=== PATIENT | female | born 1935 | race Caucasian/White ===

== ENCOUNTER 2016-12-26 13:50 | Emergency (ER) | payer OTHER, MEDICARE ==
[2016-12-26 14:02] VITALS: BP 113/62; PULSE 86; TEMP 98.6; BMI 23.8
[2016-12-26] MEDS ORDERED: DIPHTH,PERTUSS(ACELL),TET 0.5 ML DISP.SYRIN IM ONE (14:04)
--- NOTE | 2016-12-26 14:45 | PDOC ---
History of Present Illness - General Chief Complaint: Laceration Stated Complaint: LACERATION RT HAND Time Seen by Provider: 12/26/16 13:55 History Source: Patient Exam Limitations: No Limitations - History of Present Illness Initial Comments: 12/26/16 14:08 Patient is a 81F who presents with a R hand laceration. The patient states she was cutting pasta dough and misjudged the depth of the dough. She takes a baby aspirin. She denies numbness, tingling, parasthesias, weakness in her R hand. She is L hand dominant. Last tetanus is unknown. Past History - Past Medical History Allergies/Adverse Reactions: Allergies Allergy/AdvReac Type Severity Reaction Status Date / Time No Known Allergies Allergy Verified 12/26/16 13:55 Home Medications: Ambulatory Orders Aspirin [Aspirin EC] 81 mg PO DAILY 12/26/16 Ranitidine HCl 300 mg PO DAILY 12/26/16 GI Disorders: Yes (DIVERTICULITIS) Other medical history: GLAUCOMA, EXERTIONAL DYSPNEA - Psycho/Social/Smoking Cessation Hx Anxiety: No Suicidal Ideation: No Smoking History: Never smoked Information on smoking cessation initiated: No Hx Alcohol Use: No Drug/Substance Use Hx: No Substance Use Type: None Review of Systems - Review of Systems Integumentary: Yes: Other (1 cm R hand, palmar surface laceration) *Physical Exam - Vital Signs Last Vital Signs Temp Pulse Resp BP Pulse Ox 98.6 F 86 18 113/62 98 12/26/16 13:50 12/26/16 13:50 12/26/16 13:50 12/26/16 13:50 12/26/16 13:50 - Physical Exam General Appearance: Yes: Nourished, Appropriately Dressed Extremity: positive: Normal Range of Motion (in R hand), Other (0.5 cm and 0.5 cm angled laceration on palmar surface). negative: Delayed Capillary Refill Integumentary: positive: Dry, Warm. negative: Pale, Cold, Rash Neurologic: positive: Respond to painful stimul. negative: Numbness Procedures - Laceration/Wound Repair Right Hand Wound Length: to 2.5 cm Wound Explored: clean Wound's Depth, Shape: irregular Irrigated w/ Saline: Yes Betadine Prep: No Anesthesia: 1% Lidocaine w/ Epi Amount of Anesthetic (ccs): 3 Wound Debrided: minimal Wound Repaired With: Sutures Suture Size/Type: 4:0 Number of Sutures: 3 Layer Closure: No Sterile Dressing Applied: Yes Splint Applied: No Medical Decision Making - Medical Decision Making 12/26/16 14:48 Patient is an 81F who presented to the ED with a R hand palmar laceration. She was given a tetanus booster and had 3 stitches placed in her laceration. I placed antibiotic ointment and a bandage. The patient is comfortable with d/c. *DC/Admit/Observation/Transfer Diagnosis at time of Disposition: Laceration - Discharge Dispostion Disposition: HOME Condition at time of disposition: Good Admit: No - Attestations Physician Attestion: 12/26/16 14:50 I, Dr. Matteo Harman, attest that this document has been prepared under my direction and personally reviewed by me in its entirety. I further attest, that it accurately reflects all work, treatment, procedures and medical decision -making performed by me.
--- NOTE | 2016-12-26 14:54 | PDOC ---
Attending Attestation - Resident Resident Name: ÁngelingaMatteo - ED Attending Attestation I have performed the following: I have examined & evaluated the patient, The case was reviewed & discussed with the resident, I agree w/resident's findings & plan, Exceptions are as noted - HPI HPI: 12/26/16 14:52 Agree with the resident's HPI as documented in the electronic medical record. - Physicial Exam PE: 12/26/16 14:53 Agree with the resident's physical examination as documented in the electronic medical record. - Medical Decision Making 12/26/16 14:53 81-year-old female with a 1 cm laceration to the palm of her nondominant hand with a knife. The wound was sutured under my direct supervision (see procedure note). Tetanus toxoid was given. Wound care instructions were provided to the patient and suture removal in 7-10 days.
== END 2016-12-26 14:58 | disposition home or self-care (01) ==
LOC: FER 13:50
PROC: 3E0234Z Introduction of Serum, Toxoid and Vaccine into Muscle, Percutaneous Approach (ICD-10-PCS; principal; 2016-12-26)
PROC: 0HQFXZZ Repair Right Hand Skin, External Approach (ICD-10-PCS; 2016-12-26)
DX: S61.411A Laceration without foreign body of right hand, initial encounter (principal); W26.0XXA Contact with knife, initial encounter; Y93.G1 Activity, food preparation and clean up; Y92.9 Unspecified place or not applicable; H40.9 Unspecified glaucoma
CPT/HCPCS: 12001-25; 90471; 90715; 99283-25

== ENCOUNTER 2017-04-11 09:49 | Inpatient (IN) | payer OTHER, MEDICARE ==
[2017-04-11 09:58] VITALS: BMI 21.9
--- NOTE | 2017-04-11 10:20 | PDOC ---
Attending Attestation - HPI HPI: 04/11/17 11:22 The patient is an 81 year old female, with a significant past medical history of COPD, who presents to the emergency department sent by Dr. Carens for evaluation of acute kidney injury and weight loss with a reported creatinine of 2 (elevated from baseline) and a calcium of 11.3. Allergies: NKDA PCP: Dr. Carnes - Physicial Exam PE: 04/11/17 11:24 Constitutional: Awake, alert, oriented. No acute distress. Head: Normocephalic. Atraumatic Eyes: PERRL. EOMI. Conjunctivae are not pale. ENT: (+) dry mucosa, cracked lips, soft palette mass (since ). Posterior pharynx without exudates or erythema. Uvula midline. Neck: Supple. Full ROM. No lymphadenopathy. Cardiovascular: Regular rate. Regular rhythm. S1, S2 regular. Distal pulses are 2+ and symmetric. Pulmonary/Chest: No evidence of respiratory distress. Clear to auscultation bilaterally No wheezing, rales or rhonchi. Abdominal: Soft and non-distended. There is no tenderness. No rebound, guarding or rigidity. No organomegaly. No palpable masses. Good bowel sounds. Back: No CVA tenderness. Musculoskeletal: No edema. No cyanosis. No clubbing. Full range of motion in all extremities. Nocalf tenderness. Radial/pedal pulses are intact and 2+ bilaterally Skin: (+) cachectic. Skin is warm and dry. No petechiae. No purpura. Neurological: Alert and oriented to person, place, and time. Cranial nerves II -XII are grossly intact. Normal speech. Strength is grossly symmetric. No sensory deficits. Psychiatric: Good eye contact. Normal interaction, affect and behavior. - Medical Decision Making 04/11/17 11:25 Documentation prepared by Osiris Sagastume, acting as medical technologist chemistry for Maribell Solis MD <Osiris Sagastume - Last Filed: 04/11/17 11:38> - Resident Resident Name: Vick Sanchez - ED Attending Attestation I have performed the following: I have examined & evaluated the patient, The case was reviewed & discussed with the resident, I agree w/resident's findings & plan, Exceptions are as noted - Medical Decision Making 04/11/17 10:19 I, Dr. Maribell Solis, DO, attest that this document has been prepared under my direction and personally reviewed by me in its entirety. I further attest, that it accurately reflects all work, treatment, procedures and medical decision -making performed by me. 04/11/17 11:33 a/p: 81yo female sent from Dr. Carnes for eval of hypercalemia and ANGEL -repeat labs -ekg -dehydrated on exam -will send parathyroid, spep, upep -wt loss -poss parathyroidism, vs MM vs dehydration and elevated labs -will need admission 04/11/17 12:[address] Kinsey who accepts pt to service -hgb 9 -cr 2 will need admission for further workup <Maribell Solis - Last Filed: 04/11/17 12:28> Discharge Disposition - Discharge Dispostion Admit: Yes <Maribell Solis - Last Filed: 04/11/17 12:28> - Diagnosis Hypercalcemia, Acute kidney injury - Discharge Dispostion Condition at time of disposition: Fair - Referrals Referrals: Vicente Carnes MD [Primary Care Provider] - - Patient Instructions - Post Discharge Activity Heart Score/ECG Review - ECG Intrepretation Comment:: 04/11/17 11:34 sinus at 78, nl axis, nl interval, no acute st/t wave findings, t wave inversions III nonspecific <Maribell Solis - Last Filed: 04/11/17 12:28>
[2017-04-11] MEDS ORDERED: SODIUM CHLORIDE 1,000 ML IV STA (10:54)
--- NOTE | 2017-04-11 11:14 | PDOC ---
History of Present Illness - General Chief Complaint: Revisit, Lab Variance Stated Complaint: LAB VARIANCE (PCP SENT)HIGH CA Time Seen by Provider: 04/11/17 10:11 History Source: Patient Exam Limitations: No Limitations - History of Present Illness Initial Comments: Patient is an 81 yo F with PMHx of GERD, was sent by her PCP because of abnormal labs, fatigue, 20 pound weight loss, confusion, decreased appetite and dry mouth that began 4-5 months ago. Her recent labs revealed 11.3 Calcium and creatinine of 2. Patient reports her dry mouth started around the same time and has been getting worse. She isn't able to swallow solids because of how dry her mouth is. She also has stated she has been more forgetful and confused lately. She denies abdominal pain, chest pain, dysuria, SOB, dizziness, bone pain, diarrhea, nausea and vomiting. 04/11/17 11:21 04/11/17 11:41 Timing/Duration: getting worse Past History - Travel Traveled outside of the country in the last 30 days: No Close contact w/someone who was outside of country & ill: No - Past Medical History Allergies/Adverse Reactions: Allergies Allergy/AdvReac Type Severity Reaction Status Date / Time No Known Allergies Allergy Verified 04/11/17 09:58 Home Medications: Ambulatory Orders Ranitidine HCl 300 mg PO DAILY 12/26/16 Cholecalciferol (Vitamin D3) [Vitamin D3] 2,000 unit PO DAILY 04/11/17 L.acidoph,Paracasei, B.lactis [Probiotic] 1 each PO HS 04/11/17 Mirtazapine [Remeron -] 15 mg PO HS 04/11/17 Multivit-Min/FA/Lycopen/Lutein [Centrum Silver Tablet] 1 each PO DAILY 04/11/17 Polyethylene Glycol 3350 [Miralax (For Daily Use) -] 17 gm PO DAILY 04/11/17 Tiotropium [place] [Spiriva] 1 inh IH DAILY 04/11/17 CHF: No Dementia: No GI Disorders: Yes (DIVERTICULITIS) - Suicide/Smoking/Psychosocial Hx Smoking History: Never smoked Information on smoking cessation initiated: No Hx Alcohol Use: No Drug/Substance Use Hx: No Substance Use Type: None Review of Systems - Review of Systems Able to Perform ROS?: Yes Constitutional: Yes: Loss of Appetite, Unintentional Wgt. Loss, Unexplained wgt Loss, Other (Fatigue) HEENTM: Yes: Difficulty Swallowing Respiratory: No: Cough, Shortness of Breath, SOB with Exertion Cardiac (ROS): No: Lightheadedness, Palpitations, Syncope ABD/GI: No: Abdominal Distended, Diarrhea : No: Burning, Dysuria Integumentary: Yes: Bruising, Pruritus (itching b/l LE feet) Neurological: No: Numbness, Tingling, Tremors, Unsteady Gait Endocrine: Yes: Unexplained Weight Loss, Change in Weight *Physical Exam - Vital Signs Last Vital Signs Temp Pulse Resp BP Pulse Ox 97.8 F 87 18 126/72 98 04/11/17 09:56 04/11/17 09:56 04/11/17 09:56 04/11/17 09:56 04/11/17 09:56 - Physical Exam Comments: NAD, comfortable A/O x 3, (forgot who president was) EOMI Dry mucous membranes, soft palate mass No thyromegaly, supple, no LAD CTA B/L RRR. No MGR Ext: B/L LE feet excoriations General Appearance: Yes: Appropriately Dressed. No: Apparent Distress HEENT: positive: EOMI, Normal Voice, Other (Dry mucous membranes). negative: Scleral Icterus (R), Scleral Icterus (L) Neck: positive: Supple Respiratory/Chest: positive: Lungs Clear, Normal Breath Sounds. 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 Hypercalcemia 2. ANGEL -Dehydration vs MM vs Parathyroidism -Labs ordered: CBC, CMP, PTH, SPEP -EKG ordered -CXR -IV Fluids 1L bolus 04/11/17 11:51 *DC/Admit/Observation/Transfer Diagnosis at time of Disposition: Hypercalcemia, Acute kidney injury - Discharge Dispostion Condition at time of disposition: Stable Admit: Yes - Referrals
[2017-04-11 11:19] LABS: BASOPHIL 0.8 % (0-2.0); EOSINOPHIL 1.1 % (0-4.5); MCH 29.8 pg (25.7-33.7); MCHC 34.5 g/dl (32.0-36.0); MEAN CELL VOLUME 86.3 fl (80-96); MEAN PLT VOLUME 7.5 fl (7.5-11.1); PLATELET COUNT 143 K/MM3 (134-434); RDW 17.7 % (11.6-15.6); WHITE BLOOD COUNT 5.4 K/mm3 (4.0-10.0)
[2017-04-11 11:44] LABS: URINE APPEARANCE CLEAR; URINE BILIRUBIN NEGATIVE (NEGATIVE); URINE BLOOD NEGATIVE (NEGATIVE); URINE COLOR LTYELLOW; URINE GLUCOSE (UA) NEGATIVE (NEGATIVE); URINE KETONE NEGATIVE (NEGATIVE); URINE NITRITE NEGATIVE (NEGATIVE); URINE PROTEIN NEGATIVE (NEGATIVE); URINE UROBILINOGEN NEGATIVE mg/dL (0.2-1.0)
[2017-04-11 11:49] LABS: ALBUMIN 3.8 g/dl (3.4-5.0); ANION GAP 9 (8-16); CALCIUM 11.9 mg/dL (8.5-10.1); CO2 26 mmol/L (21-32); CREATININE 2.2 mg/dL (0.55-1.02); GLUCOSE,RANDOM 91 mg/dL (74-106); SGOT/AST 14 U/L (15-37); SGPT/ALT 20 U/L (12-78)
[2017-04-11 11:52] LABS: ALK PHOS 73 U/L (45-117); BILIRUBIN,TOTAL 0.8 mg/dL (0.2-1.0); TOT PROT 6.1 g/dl (6.4-8.2)
[2017-04-11] MEDS ORDERED: SODIUM CHLORIDE 0.9% 1000 ML INFUS.BAG IV ONE (12:53)
--- NOTE | 2017-04-11 13:21 | HP ---
Admitting History and Physical - Primary Care Physician PCP: Vicente Carnes - Admission History of Present Illness: The patient is an 81 year old female, with a significant past medical history of COPD, who presents to the emergency department sent by Dr. Carnes for evaluation of acute kidney injury and weight loss with a reported creatinine of 2 (elevated from baseline) and a calcium of 11.3. per patient she has been losing weight for past few weeks bc she has no appetite and has noticed like her balance is off , she feels like she will fall. she denies nausea,constipation, but is complaining of dry mouth in ER noted to have hgb 9, cr 2.2 and ca 11.9 getting iv hydration History Source: Patient, Family Member - Past Medical History Pulmonary: Yes: COPD - Smoking History Smoking history: Never smoked - Alcohol/Substance Use Hx Alcohol Use: No Home Medications - Allergies Allergies/Adverse Reactions: Allergies Allergy/AdvReac Type Severity Reaction Status Date / Time No Known Allergies Allergy Verified 04/11/17 09:58 - Home Medications Home Medications: Ambulatory Orders Ranitidine HCl 300 mg PO DAILY 12/26/16 Cholecalciferol (Vitamin D3) [Vitamin D3] 2,000 unit PO DAILY 04/11/17 L.acidoph,Paracasei, B.lactis [Probiotic] 1 each PO HS 04/11/17 Mirtazapine [Remeron -] 15 mg PO HS 04/11/17 Multivit-Min/FA/Lycopen/Lutein [Centrum Silver Tablet] 1 each PO DAILY 04/11/17 Polyethylene Glycol 3350 [Miralax (For Daily Use) -] 17 gm PO DAILY 04/11/17 Tiotropium [place] [Spiriva] 1 inh IH DAILY 04/11/17 Review of Systems - Review of Systems Constitutional: reports: Loss of Appetite, Unintentional Wgt. Loss Integumentary: reports: Pruritis (on the legs) Physical Examination Vital Signs: Vital Signs Temperature 97.8 F 04/11/17 09:56 Pulse Rate 87 04/11/17 09:56 Respiratory Rate 18 04/11/17 09:56 Blood Pressure 126/72 04/11/17 09:56 O2 Sat by Pulse Oximetry (%) 98 04/11/17 09:56 Constitutional: Yes: Calm, Thin Cardiovascular: Yes: Regular Rate and Rhythm, S1, S2 Respiratory: Yes: CTA Bilaterally Gastrointestinal: Yes: Normal Bowel Sounds, Soft Edema: No Neurological: Yes: Alert, Oriented Psychiatric: Yes: Alert, Oriented Imaging - Results Chest X-ray: Report Reviewed Problem List - Problems (1) Acute kidney injury Assessment/Plan: renal eval renal sono ivf Code(s): N17.9 - ACUTE KIDNEY FAILURE, UNSPECIFIED (2) Hypercalcemia Assessment/Plan: r/o MM vs parathyroid dx spep upep pth endo,heme Code(s): E83.52 - HYPERCALCEMIA (3) COPD (chronic obstructive pulmonary disease) Assessment/Plan: spiriva Code(s): J44.9 - CHRONIC OBSTRUCTIVE PULMONARY DISEASE, UNSPECIFIED (4) Decrease in appetite Assessment/Plan: remeron Code(s): R63.0 - ANOREXIA
[2017-04-11] MEDS ORDERED: SODIUM CHLORIDE 1,000 ML IV SCH (13:45)
--- NOTE | 2017-04-11 14:08 | CONSULT ---
Consult Consult Specialty:: Nephrology Referred by:: Dr. 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 Pulmonary: Yes: COPD - Past Surgical History Past Surgical History: Yes: Appendectomy - Alcohol/Substance Use Hx Alcohol Use: No History of Substance Use: reports: None - Smoking History Smoking history: Never smoked - Social History Usual Living Arrangement: Alone () Home Medications - Allergies Allergies/Adverse Reactions: Allergies Allergy/AdvReac Type Severity Reaction Status Date / Time No Known Allergies Allergy Verified 04/11/17 09:58 - Home Medications Home Medications: Ambulatory Orders Ranitidine HCl 300 mg PO DAILY 12/26/16 Cholecalciferol (Vitamin D3) [Vitamin D3] 2,000 unit PO DAILY 04/11/17 L.acidoph,Paracasei, B.lactis [Probiotic] 1 each PO HS 04/11/17 Mirtazapine [Remeron -] 15 mg PO HS 04/11/17 Multivit-Min/FA/Lycopen/Lutein [Centrum Silver Tablet] 1 each PO DAILY 04/11/17 Polyethylene Glycol 3350 [Miralax (For Daily Use) -] 17 gm PO DAILY 04/11/17 Tiotropium [place] [Spiriva] 1 inh IH DAILY 04/11/17 Review of Systems - Review of Systems Constitutional: reports: Loss of Appetite, Malaise, Unintentional Wgt. Loss Eyes: reports: No Symptoms HENT: reports: No Symptoms Neck: reports: No Symptoms Cardiovascular: reports: Shortness of Breath Respiratory: reports: SOB on Exertion Gastrointestinal: reports: No Symptoms Genitourinary: reports: Frequency, Lesions, Other (inceased urine volume) Neurological: reports: No Symptoms Physical Exam Vital Signs: Vital Signs Temperature 97.8 F 04/11/17 09:56 Pulse Rate 87 04/11/17 09:56 Respiratory Rate 18 04/11/17 09:56 Blood Pressure 126/72 04/11/17 09:56 O2 Sat by Pulse Oximetry (%) 98 04/11/17 09:56 Constitutional: Yes: No Distress HENT: Yes: Atraumatic Neck: Yes: Supple Cardiovascular: Yes: S1, S2 Respiratory: Yes: Regular, CTA Bilaterally Gastrointestinal: Yes: Normal Bowel Sounds, Soft Renal/: No: Bladder Distention, CVA Tenderness - Left, CVA Tenderness - Right , Hematuria Musculoskeletal: No: Back Pain, Joint Stiffness Neurological: Yes: Alert, Oriented Imaging - Results Chest X-ray: Pending Problem List - Problems (1) Hypercalcemia Code(s): E83.52 - HYPERCALCEMIA Assessment/Plan 81 y/o female with h/o COPD, very remote h/o smoking cigarettes, admitted with unexplained weight loss. The Renal function in view of Hypercalcemia and Acute azotemia. Hypercalcemia: White it is partially due to the patient taking Vitamin D and Calcium supplements, that alone may not be sufficient to explain the degree of Hypercalcemia. This finding in combination with the unexplained weight loss should alert one to look for Malignant Hypercalcemia in an elderly female. Dehydration makes the Hypercalcemia worse. The Acute Kidney Injury may be significantly volume dependent. Hypercalcemia causes a form of Nephrogenic Diabetes insipidus, polyuria and vole depletion. Need also to look for other reasons too. Anemia is significant, and needs work up. Will continue hydration with IV Normal saline. Basic w/u as ordered. Avoid Calcium and Vitamin D for now. Will monitor the renal / electrolytes with you. Thank you. Marge Berumen MD
--- NOTE | 2017-04-11 16:13 | CONSULT ---
Consult Consult Specialty:: Hematology/Oncology Reason for Consultation:: Hypercalcemia - History of Present Illness History of Present Illness: Sent in by due to hyperCa and ANGEL. Patient seen and examined in the ER. 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 She + fatigue, no LAD, bone pains , night sweats, melena. She says her last colonoscopy and mammo are negative , does not recall when. 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 Pulmonary: Yes: COPD - Past Surgical History Past Surgical History: Yes: Appendectomy - Alcohol/Substance Use Hx Alcohol Use: No History of Substance Use: reports: None - Smoking History Smoking history: Never smoked - Social History Usual Living Arrangement: Alone () Home Medications - Allergies Allergies/Adverse Reactions: Allergies Allergy/AdvReac Type Severity Reaction Status Date / Time No Known Allergies Allergy Verified 04/11/17 09:58 - Home Medications Home Medications: Ambulatory Orders Ranitidine HCl 300 mg PO DAILY 12/26/16 Cholecalciferol (Vitamin D3) [Vitamin D3] 2,000 unit PO DAILY 04/11/17 L.acidoph,Paracasei, B.lactis [Probiotic] 1 each PO HS 04/11/17 Mirtazapine [Remeron -] 15 mg PO HS 04/11/17 Multivit-Min/FA/Lycopen/Lutein [Centrum Silver Tablet] 1 each PO DAILY 04/11/17 Polyethylene Glycol 3350 [Miralax (For Daily Use) -] 17 gm PO DAILY 04/11/17 Tiotropium [place] [Spiriva] 1 inh IH DAILY 04/11/17 Review of Systems - Review of Systems Constitutional: reports: Loss of Appetite, Unintentional Wgt. Loss, Weakness. denies: Night Sweats Eyes: denies: Blind Spots, Photophobia Neck: denies: Decreased ROM, Lumps, Pain on Movement Cardiovascular: denies: Chest Pain, Edema, Palpitations Respiratory: denies: Cough, Exercise Intolerance Gastrointestinal: denies: Abdominal Pain, Bloating, Constipation, Diarrhea, Melena, Rectal Bleeding Genitourinary: denies: Burning Neurological: denies: Change in LOC, Change in Speech, Confusion Hematology/Lymphatic: denies: Easily Bruised, Excessive Bleeding, Swollen Glands Physical Exam Vital Signs: Vital Signs Temperature 97.6 F 04/11/17 14:38 Pulse Rate 79 04/11/17 14:38 Respiratory Rate 16 04/11/17 14:38 Blood Pressure 132/58 04/11/17 14:38 O2 Sat by Pulse Oximetry (%) 98 04/11/17 14:38 Constitutional: Yes: No Distress, Calm, Thin Eyes: Yes: Conjunctiva Clear HENT: Yes: Atraumatic, Normocephalic Neck: Yes: Supple, Trachea Midline. No: Lymphadenopathy Cardiovascular: Yes: Regular Rate and Rhythm Respiratory: Yes: Regular, CTA Bilaterally. No: Accessory Muscle Use Gastrointestinal: Yes: Normal Bowel Sounds, Soft, Abdomen, Obese Musculoskeletal: No: Back Pain, Joint Stiffness Edema: No Neurological: Yes: Alert, Oriented Psychiatric: Yes: Alert, Oriented Imaging - Results Chest X-ray: Report Reviewed Problem List - Problems (1) Hypercalcemia Code(s): E83.52 - HYPERCALCEMIA (2) Acute kidney injury Code(s): N17.9 - ACUTE KIDNEY FAILURE, UNSPECIFIED (3) COPD (chronic obstructive pulmonary disease) Code(s): J44.9 - CHRONIC OBSTRUCTIVE PULMONARY DISEASE, UNSPECIFIED Assessment/Plan Hypercalcemia Normocytic Normochromic Anemia ANGEL COPD remote hx of smoking. -for anemia w/u -r/o MM -for HyperCa, as of now, likely would improve with IVF, Will hold off on Bisphosphonates -bone scan -further w/u pending above
[2017-04-11 17:22] LABS: URINE LEUK ESTERASE Negative (NEGATIVE)
--- NOTE | 2017-04-11 20:17 | EKG ---
Test Reason : Blood Pressure : / mmHG Vent. Rate : 078 BPM Atrial Rate : 078 BPM P-R Int : 138 ms QRS Dur : 080 ms QT Int : 390 ms P-R-T Axes : 071 041 044 degrees QTc Int : 444 ms NORMAL SINUS RHYTHM POSSIBLE LEFT ATRIAL ENLARGEMENT BORDERLINE ECG NO PREVIOUS ECGS AVAILABLE REPEAT EKG IF CLINICALLY INDICATED Confirmed by RHYS IZQUIERDO MD ([id number]) on 04/11/2017 8:17:16 PM Referred By: Confirmed By:RHYS IZQUIERDO MD
[2017-04-11] MEDS: MIRTAZAPINE 15 MG TABLET (FP) PO SCH (22:58)
[2017-04-12 07:35] LABS: FREE T4 0.99 ng/dl (0.76-1.46)
[2017-04-12 07:49] LABS: THYROID STIMULATING HORMONE 2.55 uIU/ml (0.358-3.74)
[2017-04-12 07:50] LABS: ALBUMIN 2.9 g/dl (3.4-5.0); ALK PHOS 53 U/L (45-117); ANION GAP 11 (8-16); BILIRUBIN,TOTAL 0.8 mg/dL (0.2-1.0); CALCIUM 9.1 mg/dL (8.5-10.1); CO2 23 mmol/L (21-32); CREATININE 1.4 mg/dL (0.55-1.02); GLUCOSE,RANDOM 87 mg/dL (74-106); PHOSPHOROUS 2.8 mg/dL (2.5-4.9); SGOT/AST 10 U/L (15-37); SGPT/ALT 14 U/L (12-78); TOT PROT 4.6 g/dl (6.4-8.2); URIC ACID 6.7 mg/dL (2.6-7.2)
--- NOTE | 2017-04-12 08:51 | PN ---
Progress Note, Physician - Current Medication List Current Medications: Active Medications Sodium Chloride (Normal Saline -) 1,000 mls @ 125 mls/hr IV ASDIR ADRIÁN Last Admin: 04/11/17 14:41 Dose: 125 mls/hr Mirtazapine (Remeron -) 15 mg PO HS ADRIÁN Last Admin: 04/11/17 22:58 Dose: 15 mg Tiotropium [place] (Spiriva -) 1 puff IH DAILY [facility] - Objective Vital Signs: Vital Signs Temperature 97.8 F 04/12/17 07:37 Pulse Rate 74 04/12/17 07:37 Respiratory Rate 20 04/12/17 07:37 Blood Pressure 135/62 04/12/17 07:37 O2 Sat by Pulse Oximetry (%) 98 04/11/17 22:19 Labs: CBC, BMP 04/12/17 06:40 Assessment/Plan - Problems (1) Acute kidney injury Assessment/Plan: renal eval noted renal sono ivf Code(s): N17.9 - ACUTE KIDNEY FAILURE, UNSPECIFIED (2) Hypercalcemia Assessment/Plan: improving on ivf Laboratory Tests 04/11/17 04/12/17 11:00 06:40 BUN 35 H 24 H D Creatinine 2.2 H 1.4 H D r/o MM vs parathyroid dx spep upep pth endo,heme Code(s): E83.52 - HYPERCALCEMIA (3) COPD (chronic obstructive pulmonary disease) Assessment/Plan: spiriva Code(s): J44.9 - CHRONIC OBSTRUCTIVE PULMONARY DISEASE, UNSPECIFIED (4) Decrease in appetite Assessment/Plan: remeron Code(s): R63.0 - ANOREXIA
--- NOTE | 2017-04-12 11:55 | PN ---
Progress Note, Physician Chief Complaint: The patient sitting by her bed. Reports feeling better. No chest pain, No shortness of breath. Good urine output maintained. IV fluids well tolerated. History of Present Illness: This is an 81 y/o female with h/o COPD, remote h/o smoking cigarettes, admitted with unexplained weight loss. TThe patient was noted to have Hypercalcemia and Acute azotemia. - Current Medication List Current Medications: Active Medications Sodium Chloride (Normal Saline -) 1,000 mls @ 125 mls/hr IV ASDIR [facility] Last Admin: 04/11/17 14:41 Dose: 125 mls/hr Mirtazapine (Remeron -) 15 mg PO HS [facility] Last Admin: 04/11/17 22:58 Dose: 15 mg Tiotropium [place] (Spiriva -) 1 puff IH DAILY [facility] - Objective Vital Signs: Vital Signs Temperature 97.8 F 04/12/17 07:37 Pulse Rate 74 04/12/17 07:37 Respiratory Rate 20 04/12/17 08:00 Blood Pressure 135/62 04/12/17 07:37 O2 Sat by Pulse Oximetry (%) 96 04/12/17 08:00 Constitutional: Yes: No Distress, Calm, Pallor Eyes: Yes: Conjunctiva Clear HENT: Yes: Atraumatic Neck: Yes: Trachea Midline Cardiovascular: Yes: S1, S2 Respiratory: Yes: Regular, Diminished Gastrointestinal: Yes: Normal Bowel Sounds, Soft Genitourinary: No: CVA Tenderness - Left, CVA Tenderness - Right Musculoskeletal: No: Back Pain, Muscle Pain Neurological: Yes: Alert, Oriented Labs: CBC, BMP 04/12/17 06:40 Problem List - Problems (1) Hypercalcemia Code(s): E83.52 - HYPERCALCEMIA (2) Acute kidney injury Code(s): N17.9 - ACUTE KIDNEY FAILURE, UNSPECIFIED Assessment/Plan 81 y/o female with h/o COPD, h/o smoking cigarettes in the remote past, admitted with unexplained weight loss. Hypercalcemia: has improved by vigorous Hydration. W/u still pending. The Acute Kidney Injury: The azotemia is improving . Anemia is significant, and needs work up. Renal sonogram with multiple cysts, not unusual in patients of this age. renal asymmetry-There is no clinical evidence of Renal artery stenosis. 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 PLAN: Will reduce the IV rate to 50 ml/hr. Awaiting results of the w/u in progress. Thank you. Marge Berumen MD
[2017-04-12] MEDS: D5-1/2NS+40 MEQ KCL - 1,000 ML IV SCH (12:43)
--- NOTE | 2017-04-12 13:22 | PN ---
Progress Note (short form) - Note Progress Note: Patient seen and examined this am, In chair. Feels better. Labs/notes reviewed. O/E: General: In chair in NAD Neck: Yes: Supple, Trachea Midline. No: Lymphadenopathy Cardiovascular: Yes: Regular Rate and Rhythm Respiratory: Yes: Regular, CTA Bilaterally. No: Accessory Muscle Use Gastrointestinal: Yes: Normal Bowel Sounds, Soft, Abdomen, Obese Musculoskeletal: No: Back Pain, Joint Stiffness Edema: No Neurological: Yes: Alert, Oriented Psychiatric: Yes: Alert, Oriented Last Vital Signs Temp Pulse Resp BP Pulse Ox 97.8 F 74 20 135/62 96 04/12/17 07:37 04/12/17 07:37 04/12/17 08:00 04/12/17 07:37 04/12/17 08:00 CBC, BMP 04/11/17 11:00 04/12/17 06:40 Current Medications Generic Name Dose Route Start Last Admin Trade Name Freq PRN Reason Stop Dose Admin Dextrose/Sodium Chloride 1,000 mls @ 50 mls/hr 04/12/17 12:15 04/12/17 12:43 D5-1/2ns+40 Meq Kcl - IV 50 mls/hr ASDIR ADRIÁN Administration Mirtazapine 15 mg 04/11/17 22:00 04/11/17 22:58 Remeron - PO 15 mg HS ADRIÁN Administration Tiotropium [place] 1 puff 04/12/17 10:00 Spiriva - IH DAILY ADRIÁN Hypercalcemia Normocytic Normochromic Anemia ANGEL COPD remote hx of smoking. -will f/u on w/u, most of it pending -cr/ca improved -if discharged,need to f/u in the office. Problem List - Problems (1) Hypercalcemia Code(s): E83.52 - HYPERCALCEMIA (2) Acute kidney injury Code(s): N17.9 - ACUTE KIDNEY FAILURE, UNSPECIFIED (3) COPD (chronic obstructive pulmonary disease) Code(s): J44.9 - CHRONIC OBSTRUCTIVE PULMONARY DISEASE, UNSPECIFIED
[2017-04-12] MEDS: TIOTROPIUM BROMIDE 18 MCG/INH (DEVICE W/ 5 CAPSULES) IH SCH (14:15)
[2017-04-12 15:04] LABS: BASOPHIL 0.6 % (0-2.0); EOSINOPHIL 3.2 % (0-4.5); MCH 29.6 pg (25.7-33.7); MEAN CELL VOLUME 87.1 fl (80-96); MEAN PLT VOLUME 7.2 fl (7.5-11.1); NEUTROPHILS 68.8 % (42.8-82.8); PLATELET COUNT 121 K/MM3 (134-434); RDW 16.9 % (11.6-15.6)
[2017-04-12] MEDS: MIRTAZAPINE 15 MG TABLET (FP) PO SCH (22:02)
--- NOTE | 2017-04-12 22:47 | CONSULT ---
Consult Consult Specialty:: endocrine Referred by:: dr.saba de león Reason for Consultation:: hypercalcemia - History of Present Illness Chief Complaint: weakness,memory loss History of Present Illness: 81 year old female, with a significant past medical history of COPD, who presents to the emergency department sent by Dr. Carnes for evaluation of acute kidney injury and weight loss with a reported creatinine of 2 (elevated from baseline) and a calcium of 11.3. per patient she has been losing weight for past few weeks bc she has no appetite and has noticed like her balance is off , she feels like she will fall. 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 Pulmonary: Yes: COPD ...: No - Past Surgical History Past Surgical History: Yes: Appendectomy - Alcohol/Substance Use Hx Alcohol Use: No History of Substance Use: reports: None - Smoking History Smoking history: Former smoker Have you smoked in the past 12 months: No If you are a former smoker, when did you quit?: 60 YRS AGO - Social History Usual Living Arrangement: Alone () Home Medications - Allergies Allergies/Adverse Reactions: Allergies Allergy/AdvReac Type Severity Reaction Status Date / Time No Known Allergies Allergy Verified 04/11/17 09:58 - Home Medications Home Medications: Ambulatory Orders Ranitidine HCl 300 mg PO DAILY 12/26/16 Cholecalciferol (Vitamin D3) [Vitamin D3] 2,000 unit PO DAILY 04/11/17 L.acidoph,Paracasei, B.lactis [Probiotic] 1 each PO HS 04/11/17 Mirtazapine [Remeron -] 15 mg PO HS 04/11/17 Multivit-Min/FA/Lycopen/Lutein [Centrum Silver Tablet] 1 each PO DAILY 04/11/17 Polyethylene Glycol 3350 [Miralax (For Daily Use) -] 17 gm PO DAILY 04/11/17 Tiotropium [place] [Spiriva] 1 inh IH DAILY 04/11/17 Review of Systems - Review of Systems Constitutional: reports: Loss of Appetite, Unintentional Wgt. Loss Eyes: reports: Blurred Vision HENT: reports: No Symptoms Neck: reports: Decreased ROM Cardiovascular: reports: No Symptoms Respiratory: reports: Exercise Intolerance, SOB on Exertion Gastrointestinal: reports: Bloating, Constipation, Nausea Genitourinary: reports: No Symptoms Breasts: reports: No Symptoms Reported Musculoskeletal: reports: Extremity Pain, Muscle Pain, Muscle Cramps, Muscle Weakness Neurological: reports: Confusion, Unsteady Gait, Weakness Endocrine: reports: Unexplained Weight Loss Physical Exam Vital Signs: Vital Signs Temperature 98.2 F 04/12/17 17:00 Pulse Rate 83 04/12/17 17:00 Respiratory Rate 18 04/12/17 17:00 Blood Pressure 150/70 04/12/17 17:00 O2 Sat by Pulse Oximetry (%) 96 04/12/17 08:00 Constitutional: Yes: Anxious Eyes: Yes: EOM Intact HENT: Yes: Normocephalic Neck: Yes: Trachea Midline Cardiovascular: Yes: Regular Rate and Rhythm Respiratory: Yes: CTA Bilaterally Gastrointestinal: Yes: Normal Bowel Sounds ...Rectal Exam: Yes: Deferred Renal/: Yes: WNL Breast(s): Yes: WNL Musculoskeletal: Yes: WNL Extremities: Yes: WNL Integumentary: Yes: WNL Neurological: Yes: Alert, Oriented Psychiatric: Yes: Alert Labs: CBC, BMP 04/12/17 14:00 04/12/17 06:40 Problem List - Problems (1) Acute kidney injury Code(s): N17.9 - ACUTE KIDNEY FAILURE, UNSPECIFIED (2) COPD (chronic obstructive pulmonary disease) Code(s): J44.9 - CHRONIC OBSTRUCTIVE PULMONARY DISEASE, UNSPECIFIED (3) Decrease in appetite Code(s): R63.0 - ANOREXIA (4) Hypercalcemia Code(s): E83.52 - HYPERCALCEMIA (5) Acute renal insufficiency Code(s): N28.9 - DISORDER OF KIDNEY AND URETER, UNSPECIFIED Assessment/Plan Current Active Problems Acute kidney injury (Acute) COPD (chronic obstructive pulmonary disease) (Acute) Decrease in appetite (Acute) Hypercalcemia (Acute) Abnormal Lab Results 04/12/17 04/12/17 04/12/17 06:40 06:40 06:40 RBC Hgb Hct RDW Plt Count MPV Monocytes % Retic Count 1.89 H Sodium 147 H Potassium 3.2 L Chloride 113 H BUN 24 H D Creatinine 1.4 H D AST 10 L D C-Reactive Protein 0.4 H Total Protein 4.6 L D Albumin 2.9 L D 04/12/17 14:00 RBC 2.84 L Hgb 8.4 L Hct 24.7 L RDW 16.9 H Plt Count 121 L MPV 7.2 L Monocytes % 16.3 H Retic Count Sodium Potassium Chloride BUN Creatinine AST C-Reactive Protein Total Protein Albumin Laboratory Results - last 24 hr 04/11/17 04/12/17 04/12/17 12:00 06:40 06:40 WBC RBC Hgb Hct MCV MCH MCHC RDW Plt Count MPV Neutrophils % Lymphocytes % Monocytes % Eosinophils % Basophils % ESR 10 Retic Count Sodium 147 H Potassium 3.2 L Chloride 113 H Carbon Dioxide 23 Anion Gap 11 BUN 24 H D Creatinine 1.4 H D Creat Clearance w eGFR 36.00 Random Glucose 87 Uric Acid 6.7 Calcium 9.1 D Phosphorus 2.8 Magnesium 2.0 Total Bilirubin 0.8 AST 10 L D ALT 14 D Alkaline Phosphatase 53 D LD Total C-Reactive Protein Total Protein 4.6 L D Albumin 2.9 L D Serum Folate 17 TSH 2.55 D Free T4 PTH Intact 22 04/12/17 04/12/17 04/12/17 06:40 06:40 06:40 WBC RBC Hgb Hct MCV MCH MCHC RDW Plt Count MPV Neutrophils % Lymphocytes % Monocytes % Eosinophils % Basophils % ESR Retic Count 1.89 H Sodium Potassium Chloride Carbon Dioxide Anion Gap BUN Creatinine Creat Clearance w eGFR Random Glucose Uric Acid Calcium Phosphorus Magnesium Total Bilirubin AST ALT Alkaline Phosphatase LD Total 161 C-Reactive Protein 0.4 H Total Protein Albumin Serum Folate TSH Free T4 0.99 D PTH Intact 04/12/17 14:00 WBC 4.0 RBC 2.84 L Hgb 8.4 L Hct 24.7 L MCV 87.1 MCH 29.6 MCHC 34.0 RDW 16.9 H Plt Count 121 L MPV 7.2 L Neutrophils % 68.8 Lymphocytes % 11.1 Monocytes % 16.3 H Eosinophils % 3.2 D Basophils % 0.6 ESR Retic Count Sodium Potassium Chloride Carbon Dioxide Anion Gap BUN Creatinine Creat Clearance w eGFR Random Glucose Uric Acid Calcium Phosphorus Magnesium Total Bilirubin AST ALT Alkaline Phosphatase LD Total C-Reactive Protein Total Protein Albumin Serum Folate TSH Free T4 PTH Intact plan:\ given recent correctio hypercalcemia and martha will need further eval ck michael gi evaluation pth rp
[2017-04-13 00:12] LABS: A/G RATIO 1.9 (0.7-1.7); ALBUMIN 3.9 g/dL (2.9-4.4); M-SPIKE Not Observed g/dL (Not Observed); TOTAL PROTEIN 5.9 g/dL (6.0-8.5)
[2017-04-13 07:03] LABS: ANION GAP 10 (8-16); CALCIUM 9.1 mg/dL (8.5-10.1); CO2 24 mmol/L (21-32); CREATININE 1.4 mg/dL (0.55-1.02); GLUCOSE,RANDOM 89 mg/dL (74-106); SGOT/AST 11 U/L (15-37); SGPT/ALT 14 U/L (12-78)
[2017-04-13 07:04] LABS: ALK PHOS 56 U/L (45-117); BILIRUBIN,TOTAL 0.5 mg/dL (0.2-1.0); TOT PROT 4.8 g/dl (6.4-8.2)
[2017-04-13 07:16] LABS: FERRITIN 208.588 ng/ml (6.9-282.5)
[2017-04-13 08:07] LABS: SERUM IRON 40 ug/dL (27-139); TOTAL IRON BINDING CAPACITY 191 ug/dL (250-450); UIBC 151 ug/dL (118-369)
--- NOTE | 2017-04-13 08:07 | PN ---
Progress Note, Physician History of Present Illness: weakness - Current Medication List Current Medications: Active Medications Dextrose/Sodium Chloride (D5-1/2ns+40 Meq Kcl -) 1,000 mls @ 50 mls/hr IV ASDIR [facility] Last Admin: 04/12/17 12:43 Dose: 50 mls/hr Mirtazapine (Remeron -) 15 mg PO HS [facility] Last Admin: 04/12/17 22:02 Dose: 15 mg Tiotropium [place] (Spiriva -) 1 puff IH DAILY [facility] Last Admin: 04/12/17 14:15 Dose: 1 puff - Objective Vital Signs: Vital Signs Temperature 99 F 04/13/17 05:00 Pulse Rate 76 04/13/17 05:00 Respiratory Rate 20 04/13/17 05:00 Blood Pressure 113/54 04/13/17 05:00 O2 Sat by Pulse Oximetry (%) 96 04/12/17 21:00 Cardiovascular: Yes: Regular Rate and Rhythm Respiratory: Yes: Regular, CTA Bilaterally Gastrointestinal: Yes: Normal Bowel Sounds, Soft Labs: CBC, BMP 04/12/17 14:00 04/13/17 06:15 Problem List - Problems (1) Hypercalcemia Assessment/Plan: IMPROVING W/U IN PROGRESS R/O MM--MALIGNANCY CT SCAN Code(s): E83.52 - HYPERCALCEMIA (2) Acute kidney injury Code(s): N17.9 - ACUTE KIDNEY FAILURE, UNSPECIFIED (3) COPD (chronic obstructive pulmonary disease) Code(s): J44.9 - CHRONIC OBSTRUCTIVE PULMONARY DISEASE, UNSPECIFIED (4) Acute renal insufficiency Assessment/Plan: IMPROVING-MONITOR Code(s): N28.9 - DISORDER OF KIDNEY AND URETER, UNSPECIFIED (5) Anemia Assessment/Plan: MONITOR COUNTS DROPPING MAY BE DUE TO HYDRATION GI CONSULT Code(s): D64.9 - ANEMIA, UNSPECIFIED (6) Renal cyst Assessment/Plan: US NOTED Code(s): N28.1 - CYST OF KIDNEY, ACQUIRED (7) Splenomegaly Assessment/Plan: US NOTED Code(s): R16.1 - SPLENOMEGALY, NOT ELSEWHERE CLASSIFIED (8) Tachycardia Assessment/Plan: SHORT RUNS MAYBE DUE TO ANEMIA EKG CARDIO ECHO Code(s): R00.0 - TACHYCARDIA, UNSPECIFIED Assessment/Plan -
[2017-04-13] MEDS ORDERED: PT OWN MED DRAWER 7, Y5N ONE ×2 (10:22→10:46)
[2017-04-13] MEDS: TIOTROPIUM BROMIDE 18 MCG/INH (DEVICE W/ 5 CAPSULES) IH SCH (10:25)
--- NOTE | 2017-04-13 10:39 | EKG ---
Test Reason : Blood Pressure : / mmHG Vent. Rate : 082 BPM Atrial Rate : 082 BPM P-R Int : 140 ms QRS Dur : 076 ms QT Int : 378 ms P-R-T Axes : 063 024 033 degrees QTc Int : 441 ms NORMAL SINUS RHYTHM NORMAL ECG WHEN COMPARED WITH ECG OF 11-APR-2017 11:15, NO SIGNIFICANT CHANGE WAS FOUND Confirmed by GERMAN FLORIAN MD ([id number]) on 04/13/2017 10:39:33 AM Referred By: CARRIE JONES DR Confirmed By:GERMAN FLORIAN MD
--- NOTE | 2017-04-13 12:07 | PN ---
Progress Note, Physician Chief Complaint: The patient sitting by her bed. Family visiting. Reports feeling better. No chest pain, No shortness of breath. Good urine output maintained. IV fluids well tolerated. History of Present Illness: This is an 81 y/o female with h/o COPD, remote h/o smoking cigarettes, admitted with unexplained weight loss. The patient was noted to have Hypercalcemia and Acute azotemia. - Current Medication List Current Medications: Active Medications Dextrose/Sodium Chloride (D5-1/2ns+40 Meq Kcl -) 1,000 mls @ 50 mls/hr IV ASDIR [facility] Last Admin: 04/12/17 12:43 Dose: 50 mls/hr Mirtazapine (Remeron -) 15 mg PO HS [facility] Last Admin: 04/12/17 22:02 Dose: 15 mg Tiotropium [place] (Spiriva -) 1 puff IH DAILY [facility] Last Admin: 04/13/17 10:25 Dose: 1 puff - Objective Vital Signs: Vital Signs Temperature 98.3 F 04/13/17 08:47 Pulse Rate 83 04/13/17 08:47 Respiratory Rate 20 04/13/17 08:47 Blood Pressure 134/59 04/13/17 08:47 O2 Sat by Pulse Oximetry (%) 97 04/13/17 08:47 Constitutional: Yes: No Distress, Pallor Eyes: Yes: Conjunctiva Clear HENT: Yes: Normocephalic Neck: Yes: Supple Cardiovascular: Yes: S1, S2 Respiratory: Yes: Regular, CTA Bilaterally Gastrointestinal: Yes: Normal Bowel Sounds, Soft Genitourinary: No: Bladder Distention, CVA Tenderness - Left, CVA Tenderness - Right Edema: No Neurological: Yes: Alert, Oriented Labs: CBC, BMP 04/12/17 14:00 04/13/17 06:15 Problem List - Problems (1) Hypercalcemia Code(s): E83.52 - HYPERCALCEMIA (2) Acute kidney injury Code(s): N17.9 - ACUTE KIDNEY FAILURE, UNSPECIFIED (3) Anemia Code(s): D64.9 - ANEMIA, UNSPECIFIED Assessment/Plan 81 y/o female with h/o COPD, Admitted with unexplained weight loss. Hypercalcemia: has improved by vigorous Hydration. Some of the w/u still pending. The Acute Kidney Injury: The azotemia is improving . Anemia is significant, and needs work up. Renal sonogram with multiple cysts, not unusual in patients of this age. renal asymmetry-There is no clinical evidence of Renal artery stenosis. 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 PLAN: IV to continue for another 24 hours.. Awaiting results of the w/u in progress. Thank you. Marge Berumen MD
[2017-04-13 12:46] LABS: BASOPHIL 0.8 % (0-2.0); EOSINOPHIL 2.8 % (0-4.5); MCH 29.9 pg (25.7-33.7); MCHC 34.3 g/dl (32.0-36.0); MEAN CELL VOLUME 87.3 fl (80-96); MEAN PLT VOLUME 7.3 fl (7.5-11.1); NEUTROPHILS 69.7 % (42.8-82.8); PLATELET COUNT 119 K/MM3 (134-434); RDW 17.3 % (11.6-15.6); WHITE BLOOD COUNT 3.7 K/mm3 (4.0-10.0)
[2017-04-13 14:22] LABS: CALCIUM 9.7 mg/dL (8.7-10.3)
--- NOTE | 2017-04-13 14:46 | CON.CARD ---
Consult Consult Specialty:: Cardiology Referred by:: Tio Reason for Consultation:: SVT - History of Present Illness Chief Complaint: Abnormal labs History of Present Illness: 81 year old female with a pmhx of copd who was sent in to ER by Dr. Carnes for elevated Cr 2 and Calcium 11.3. Ms. Hubbard otherwise denies any cardiac history. No chest pain, dyspnea, or palpitaitons. No pnd, orthopnea, or edema. Does note some weight loss with decreased appetite and off balance feeling. 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 Pulmonary: Yes: COPD ...: No - Past Surgical History Past Surgical History: Yes: Appendectomy - Alcohol/Substance Use Hx Alcohol Use: No History of Substance Use: reports: None - Smoking History Smoking history: Former smoker Have you smoked in the past 12 months: No If you are a former smoker, when did you quit?: 60 YRS AGO - Social History Usual Living Arrangement: Alone () Home Medications - Allergies Allergies/Adverse Reactions: Allergies Allergy/AdvReac Type Severity Reaction Status Date / Time No Known Allergies Allergy Verified 04/11/17 09:58 - Home Medications Home Medications: Ambulatory Orders Ranitidine HCl 300 mg PO DAILY 12/26/16 Cholecalciferol (Vitamin D3) [Vitamin D3] 2,000 unit PO DAILY 04/11/17 L.acidoph,Paracasei, B.lactis [Probiotic] 1 each PO HS 04/11/17 Mirtazapine [Remeron -] 15 mg PO HS 04/11/17 Multivit-Min/FA/Lycopen/Lutein [Centrum Silver Tablet] 1 each PO DAILY 04/11/17 Polyethylene Glycol 3350 [Miralax (For Daily Use) -] 17 gm PO DAILY 04/11/17 Tiotropium [place] [Spiriva] 1 inh IH DAILY 04/11/17 Vital Signs: Vital Signs Temperature 98.7 F 04/13/17 14:21 Pulse Rate 82 04/13/17 14:21 Respiratory Rate 20 04/13/17 08:47 Blood Pressure 129/67 04/13/17 14:21 O2 Sat by Pulse Oximetry (%) 97 04/13/17 08:47 Constitutional: Yes: No Distress Neck: Yes: Supple Respiratory: Yes: CTA Bilaterally Gastrointestinal: Yes: Normal Bowel Sounds, Soft Cardiovascular: Yes: Regular Rate and Rhythm JVD: No Carotid Bruit: Yes PMI: Non-Displaced Heart Sounds: Yes: S1, S2 Murmur: Yes: Systolic Murmur (3/6 HSM upper sternal border) Edema: No - Other Data Labs, Other Data: CBC, BMP 04/13/17 12:05 04/13/17 06:15 Imaging - Results Chest X-ray: Report Reviewed EKG: Image Reviewed Problem List - Problems (1) Tachycardia Code(s): R00.0 - TACHYCARDIA, UNSPECIFIED Assessment/Plan 81 year old female with a pmhx of copd who was sent in to ER by Dr. Carnes for elevated Cr 2 and Calcium 11.3. Ms. Hubbard otherwise denies any cardiac history. No chest pain, dyspnea, or palpitaitons. No pnd, orthopnea, or edema. Does note some weight loss with decreased appetite and off balance feeling. Hgb was 9, Cr 2.2 and Ca 11.9 in ER 1) CV -Patient on telemetry noted to have 9 beats of SVT. Otherwise telemetry unremarkable. Patient is without any cardiac complaints of chest pain, dyspnea , palpitations, or syncope. No signs of chf on exam. Would not treat this brief episode of SVT. Plan for echocardiogram to ensure no structural abnormalities 2) Systolic murmur upper sternal border Pending echocardiogram Left carotid bruit. This may be from systolic murmur radiating but would have carotid duplex as outpatient
--- NOTE | 2017-04-13 18:45 | CON.GI ---
Consult Consult Specialty:: gastroenterology Referred by:: Dr Kinsey - History of Present Illness History of Present Illness: 81 y/o F was admiited because of hypercalcemia and ANGEL. She was noted to have pancyopenia. She denies dysphagia, rectal bleeding, melena and abdominal pain.Last colonoscopy was 10 years ago. 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 Pulmonary: Yes: COPD ...: No - Past Surgical History Past Surgical History: Yes: Appendectomy - Alcohol/Substance Use Hx Alcohol Use: No History of Substance Use: reports: None - Smoking History Smoking history: Former smoker Have you smoked in the past 12 months: No If you are a former smoker, when did you quit?: 60 YRS AGO - Social History Usual Living Arrangement: Alone () Home Medications - Allergies Allergies/Adverse Reactions: Allergies Allergy/AdvReac Type Severity Reaction Status Date / Time No Known Allergies Allergy Verified 04/11/17 09:58 - Home Medications Home Medications: Ambulatory Orders Ranitidine HCl 300 mg PO DAILY 12/26/16 Cholecalciferol (Vitamin D3) [Vitamin D3] 2,000 unit PO DAILY 04/11/17 L.acidoph,Paracasei, B.lactis [Probiotic] 1 each PO HS 04/11/17 Mirtazapine [Remeron -] 15 mg PO HS 04/11/17 Multivit-Min/FA/Lycopen/Lutein [Centrum Silver Tablet] 1 each PO DAILY 04/11/17 Polyethylene Glycol 3350 [Miralax (For Daily Use) -] 17 gm PO DAILY 04/11/17 Tiotropium [place] [Spiriva] 1 inh IH DAILY 04/11/17 Physical Exam-GI Vital Signs: Vital Signs Temperature 98.4 F 04/13/17 15:06 Pulse Rate 78 04/13/17 15:06 Respiratory Rate 20 04/13/17 15:06 Blood Pressure 133/61 04/13/17 15:06 O2 Sat by Pulse Oximetry (%) 97 04/13/17 08:47 Constitutional: Yes: Well Nourished Eyes: Yes: Conjunctiva Clear HENT: Yes: Atraumatic Neck: Yes: Supple Cardiovascular: Yes: Regular Rate and Rhythm Respiratory: Yes: CTA Bilaterally ...Palpate: Yes: Soft. 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 SHe was made aware to follow-up Code(s): D64.9 - ANEMIA, UNSPECIFIED
[2017-04-13] MEDS: RANITIDINE HCL 150 MG TABLET (FP) PO SCH (21:20)
[2017-04-13] MEDS: BISACODYL 5 MG TABLET.DR (FP) PO SCH (21:20)
[2017-04-13] MEDS: MIRTAZAPINE 15 MG TABLET (FP) PO SCH (21:20)
--- NOTE | 2017-04-13 22:39 | PN ---
Progress Note (short form) - Note Progress Note: PAtient seen and examined Denies any specidfic complaints AFVSS Cor: RSR, No murmurs, No gallops Lungs: Clear to P&A Abd: Soft, Normal bowel sounds, No organomegaly Ext:No significant edema Skin: No rashes, Integument intact Abnormal Lab Results 04/12/17 04/13/17 06:40 12:05 WBC 3.7 L RBC 2.93 L Hgb 8.8 L Hct 25.6 L RDW 17.3 H Plt Count 119 L MPV 7.3 L Monocytes % 15.3 H [id number] 5.9 H Home Medication List Medication Instructions Recorded Confirmed Type Ranitidine HCl 300 mg PO DAILY 12/26/16 04/11/17 History Cholecalciferol (Vitamin D3) 2,000 unit PO DAILY 04/11/17 04/11/17 History [Vitamin D3] L.acidoph,Paracasei, B.lactis 1 each PO HS 04/11/17 04/11/17 History [Probiotic] Mirtazapine [Remeron -] 15 mg PO HS 04/11/17 04/11/17 History Multivit-Min/FA/Lycopen/Lutein 1 each PO DAILY 04/11/17 04/11/17 History [Centrum Silver Tablet] Polyethylene Glycol 3350 [Miralax 17 gm PO DAILY 04/11/17 04/11/17 History (For Daily Use) -] Tiotropium [place] [Spiriva] 1 inh IH DAILY 04/11/17 04/11/17 History Active Medications Generic Name Dose Route Start Last Admin Trade Name Adriano PRN Reason Stop Dose Admin Bisacodyl 10 mg 04/13/17 18:39 04/13/17 21:20 Dulcolax - PO 10 mg DAILY ADRIÁN Administration Dextrose/Sodium Chloride 1,000 mls @ 50 mls/hr 04/12/17 12:15 04/14/17 06:43 D5-1/2ns+40 Meq Kcl - IV 50 mls/hr ASDIR ADRIÁN Administration Mirtazapine 15 mg 04/11/17 22:00 04/13/17 21:20 Remeron - PO 15 mg HS ADRIÁN Administration Ranitidine HCl 300 mg 04/13/17 18:40 04/13/17 21:20 Zantac - PO 300 mg DAILY ADRIÁN Administration Tiotropium [place] 1 puff 04/12/17 10:00 04/13/17 10:25 Spiriva - IH 1 puff DAILY ADRIÁN Administration A/P 81 y/o patient with COPD/hypercalcemia/ANGEL on CD noted to have splenomegaly Bone scan negative LDH/iron studies/SIFE /TSH--nl Check flowcytometry/JA2/bcr;abl ?? lymphoproliferative . Unlikely myeloproliferative Await CT a/o once Cr improves check U/S liver U/S kidneys noted
[2017-04-14] MEDS: D5-1/2NS+40 MEQ KCL - 1,000 ML IV SCH (06:43)
--- NOTE | 2017-04-14 09:02 | PN ---
Progress Note, Physician - Current Medication List Current Medications: Active Medications Bisacodyl (Dulcolax -) 10 mg PO DAILY [facility] Last Admin: 04/13/17 21:20 Dose: 10 mg Dextrose/Sodium Chloride (D5-1/2ns+40 Meq Kcl -) 1,000 mls @ 50 mls/hr IV ASDIR [facility] Last Admin: 04/14/17 06:43 Dose: 50 mls/hr Mirtazapine (Remeron -) 15 mg PO HS [facility] Last Admin: 04/13/17 21:20 Dose: 15 mg Ranitidine HCl (Zantac -) 300 mg PO DAILY [facility] Last Admin: 04/13/17 21:20 Dose: 300 mg Tiotropium [place] (Spiriva -) 1 puff IH DAILY [facility] Last Admin: 04/13/17 10:25 Dose: 1 puff - Objective Vital Signs: Vital Signs Temperature 99.1 F 04/14/17 08:20 Pulse Rate 89 04/14/17 08:20 Respiratory Rate 17 04/14/17 08:20 Blood Pressure 116/66 04/14/17 08:20 O2 Sat by Pulse Oximetry (%) 98 04/14/17 08:20 Cardiovascular: Yes: Regular Rate and Rhythm Respiratory: Yes: Regular, CTA Bilaterally Gastrointestinal: Yes: Normal Bowel Sounds, Soft Labs: CBC, BMP 04/13/17 12:05 04/13/17 06:15 Problem List - Problems (1) Hypercalcemia Assessment/Plan: IMPROVING W/U IN PROGRESS R/O MM--MALIGNANCY CT SCAN noted -splenomegally Code(s): E83.52 - HYPERCALCEMIA (2) Acute kidney injury Assessment/Plan: resolving dc ivf monitor Code(s): N17.9 - ACUTE KIDNEY FAILURE, UNSPECIFIED (3) COPD (chronic obstructive pulmonary disease) Assessment/Plan: stable Code(s): J44.9 - CHRONIC OBSTRUCTIVE PULMONARY DISEASE, UNSPECIFIED (4) Acute renal insufficiency Assessment/Plan: IMPROVING-MONITOR Code(s): N28.9 - DISORDER OF KIDNEY AND URETER, UNSPECIFIED (5) Anemia Assessment/Plan: MONITOR COUNTS DROPPING MAY BE DUE TO HYDRATION GI CONSULT NOTED Code(s): D64.9 - ANEMIA, UNSPECIFIED (6) Renal cyst Assessment/Plan: US NOTED Code(s): N28.1 - CYST OF KIDNEY, ACQUIRED (7) Splenomegaly Assessment/Plan: US NOTED Code(s): R16.1 - SPLENOMEGALY, NOT ELSEWHERE CLASSIFIED (8) Tachycardia Assessment/Plan: SHORT RUNS MAYBE DUE TO ANEMIA EKG CARDIO NOTED ECHO NL LV Code(s): R00.0 - TACHYCARDIA, UNSPECIFIED Assessment/Plan -
[2017-04-14] MEDS ORDERED: PT OWN MED DRAWER 7, Y5N ONE ×2 (09:14→13:04)
[2017-04-14] MEDS: BISACODYL 5 MG TABLET.DR (FP) PO SCH (09:20)
[2017-04-14] MEDS: RANITIDINE HCL 150 MG TABLET (FP) PO SCH (09:20)
[2017-04-14] MEDS: TIOTROPIUM BROMIDE 18 MCG/INH (DEVICE W/ 5 CAPSULES) IH SCH (09:21)
--- NOTE | 2017-04-14 09:46 | PN ---
Progress Note, Physician Chief Complaint: No complaints today Tele: sinus with no events History of Present Illness: 81 year old female with a pmhx of copd who was sent in to ER by Dr. Carnes for elevated Cr 2 and Calcium 11.3. Ms. Hubbard otherwise denies any cardiac history. No chest pain, dyspnea, or palpitaitons. No pnd, orthopnea, or edema. Does note some weight loss with decreased appetite and off balance feeling. Hgb was 9, Cr 2.2 and Ca 11.9 in ER - Current Medication List Current Medications: Active Medications Bisacodyl (Dulcolax -) 10 mg PO DAILY [facility] Last Admin: 04/14/17 09:20 Dose: 10 mg Dextrose/Sodium Chloride (D5-1/2ns+40 Meq Kcl -) 1,000 mls @ 50 mls/hr IV ASDIR [facility] Last Admin: 04/14/17 06:43 Dose: 50 mls/hr Mirtazapine (Remeron -) 15 mg PO HS [facility] Last Admin: 04/13/17 21:20 Dose: 15 mg Ranitidine HCl (Zantac -) 300 mg PO DAILY [facility] Last Admin: 04/14/17 09:20 Dose: 300 mg Tiotropium [place] (Spiriva -) 1 puff IH DAILY [facility] Last Admin: 04/14/17 09:21 Dose: 1 puff - Objective Vital Signs: Vital Signs Temperature 99.1 F 04/14/17 08:20 Pulse Rate 89 04/14/17 08:20 Respiratory Rate 17 04/14/17 08:20 Blood Pressure 116/66 04/14/17 08:20 O2 Sat by Pulse Oximetry (%) 98 04/14/17 08:20 Constitutional: Yes: No Distress Neck: Yes: Supple Cardiovascular: Yes: Regular Rate and Rhythm, Murmur (2/6 HSM RUSB), S1, S2 Respiratory: Yes: CTA Bilaterally Gastrointestinal: Yes: Normal Bowel Sounds, Soft Edema: No Labs: CBC, BMP 04/13/17 12:05 04/13/17 06:15 Problem List - Problems (1) Tachycardia Code(s): R00.0 - TACHYCARDIA, UNSPECIFIED Assessment/Plan 81 year old female with a pmhx of copd who was sent in to ER by Dr. Carnes for elevated Cr 2 and Calcium 11.3. Ms. Hubbard otherwise denies any cardiac history. No chest pain, dyspnea, or palpitaitons. No pnd, orthopnea, or edema. Does note some weight loss with decreased appetite and off balance feeling. Hgb was 9, Cr 2.2 and Ca 11.9 in ER 1) CV -Patient on telemetry noted to have 9 beats of SVT on night of admission otherwise no events. Patient is without any cardiac complaints of chest pain, dyspnea, palpitations, or syncope. No signs of chf on exam. Would not treat this brief episode of SVT. Echocardiogram with normal LVEF and no significant valve disease Will sign off at this time.
--- NOTE | 2017-04-14 12:38 | PN ---
Progress Note, Physician Chief Complaint: The patient sitting by her bed. Reports feeling better. No chest pain, No shortness of breath. Good urine output maintained. Off IV fluids now. History of Present Illness: This is an 81 y/o female with h/o COPD, remote h/o smoking cigarettes, admitted with unexplained weight loss. The patient was noted to have Hypercalcemia and Acute azotemia. Serum Calcium has normalized and Serum Creatinine has improved . - Current Medication List Current Medications: Active Medications Bisacodyl (Dulcolax -) 10 mg PO DAILY [facility] Last Admin: 04/14/17 09:20 Dose: 10 mg Mirtazapine (Remeron -) 15 mg PO HS [facility] Last Admin: 04/13/17 21:20 Dose: 15 mg Ranitidine HCl (Zantac -) 300 mg PO DAILY [facility] Last Admin: 04/14/17 09:20 Dose: 300 mg Tiotropium [place] (Spiriva -) 1 puff IH DAILY [facility] Last Admin: 04/14/17 09:21 Dose: 1 puff - Objective Vital Signs: Vital Signs Temperature 99.1 F 04/14/17 08:20 Pulse Rate 89 04/14/17 08:20 Respiratory Rate 17 04/14/17 08:20 Blood Pressure 116/66 04/14/17 08:20 O2 Sat by Pulse Oximetry (%) 98 04/14/17 08:20 Constitutional: Yes: No Distress Eyes: Yes: Conjunctiva Clear HENT: Yes: Normocephalic Neck: Yes: Trachea Midline Cardiovascular: Yes: S1 Respiratory: Yes: CTA Bilaterally, Diminished Gastrointestinal: Yes: Normal Bowel Sounds, Soft Genitourinary: No: CVA Tenderness - Left, CVA Tenderness - Right Musculoskeletal: Yes: Back Pain Labs: CBC, BMP 04/13/17 12:05 04/13/17 06:15 Problem List - Problems (1) Hypercalcemia Code(s): E83.52 - HYPERCALCEMIA (2) Acute kidney injury Code(s): N17.9 - ACUTE KIDNEY FAILURE, UNSPECIFIED (3) Anemia Code(s): D64.9 - ANEMIA, UNSPECIFIED Assessment/Plan 81 y/o female with h/o COPD, Admitted with unexplained weight loss. Hypercalcemia: has improved by vigorous Hydration. Some of the w/u still pending. The Acute Kidney Injury: Serum Cr 1.4. Anemia is significant. The etiology to determined. Off IV fluids. Results pending of some serology w/u Thank you. Marge Berumen MD
--- NOTE | 2017-04-14 16:21 | PN ---
Progress Note, Physician Chief Complaint: feeling better improved appetite no complaint History of Present Illness: hypercalcemia ,improved renal function sp martha - Current Medication List Current Medications: Active Medications Bisacodyl (Dulcolax -) 10 mg PO DAILY [facility] Last Admin: 04/14/17 09:20 Dose: 10 mg Mirtazapine (Remeron -) 15 mg PO HS [facility] Last Admin: 04/13/17 21:20 Dose: 15 mg Ranitidine HCl (Zantac -) 300 mg PO DAILY [facility] Last Admin: 04/14/17 09:20 Dose: 300 mg Tiotropium [place] (Spiriva -) 1 puff IH DAILY [facility] Last Admin: 04/14/17 09:21 Dose: 1 puff - Objective Vital Signs: Vital Signs Temperature 99.1 F 04/14/17 14:00 Pulse Rate 96 H 04/14/17 14:00 Respiratory Rate 20 04/14/17 14:00 Blood Pressure 115/55 04/14/17 14:00 O2 Sat by Pulse Oximetry (%) 98 04/14/17 08:20 Constitutional: Yes: Calm Eyes: Yes: EOM Intact HENT: Yes: Normocephalic Neck: Yes: Trachea Midline Cardiovascular: Yes: Regular Rate and Rhythm Respiratory: Yes: CTA Bilaterally Gastrointestinal: Yes: Normal Bowel Sounds ...Rectal Exam: Yes: Deferred Genitourinary: Yes: WNL Breast(s): Yes: WNL Musculoskeletal: Yes: WNL, Muscle Weakness Extremities: Yes: WNL Neurological: Yes: Alert, Oriented Labs: CBC, BMP 04/13/17 12:05 04/13/17 06:15 Problem List - Problems (1) Acute kidney injury Code(s): N17.9 - ACUTE KIDNEY FAILURE, UNSPECIFIED (2) COPD (chronic obstructive pulmonary disease) Code(s): J44.9 - CHRONIC OBSTRUCTIVE PULMONARY DISEASE, UNSPECIFIED (3) Decrease in appetite Code(s): R63.0 - ANOREXIA (4) Hypercalcemia Code(s): E83.52 - HYPERCALCEMIA Assessment/Plan Current Active Problems Acute kidney injury (Acute) Anemia (Acute) COPD (chronic obstructive pulmonary disease) (Acute) Decrease in appetite (Acute) Hypercalcemia (Acute) Renal cyst (Acute) Splenomegaly (Acute) Tachycardia (Acute) Laboratory Tests 04/12/17 04/12/17 04/13/17 06:40 06:40 06:15 Sodium 147 H Potassium 3.8 Chloride 113 H Carbon Dioxide 24 Anion Gap 10 BUN 23 H Creatinine 1.4 H Creat Clearance w eGFR 36.00 Random Glucose 89 Calcium 9.7 9.1 Free T4 0.99 D Total T3 95.00 PTH Intact 21 plan: will need close follow up out patient for vitamin d and calcium level
[2017-04-14] MEDS: MIRTAZAPINE 15 MG TABLET (FP) PO SCH (21:20)
--- NOTE | 2017-04-14 22:24 | PN ---
Progress Note (short form) - Note Progress Note: PAtient seen and examined Denies any specidfic complaints AFVSS Cor: RSR, No murmurs, No gallops Lungs: Clear to P&A Abd: Soft, Normal bowel sounds, No organomegaly Ext:No significant edema Skin: No rashes, Integument intact Labs/meds reviewed A/P 81 y/o patient with COPD/hypercalcemia/ANGEL on CD noted to have splenomegaly Bone scan negative LDH/iron studies/SIFE /TSH--nl Check flowcytometry/JA2/bcr;abl ?? lymphoproliferative . Unlikely myeloproliferative Await CT a/p once Cr improves check U/S liver U/S kidneys noted
[2017-04-15 08:08] LABS: ANION GAP 7 (8-16); CALCIUM 9.1 mg/dL (8.5-10.1); CO2 26 mmol/L (21-32); GLUCOSE,RANDOM 87 mg/dL (74-106)
[2017-04-15 08:13] LABS: ALK PHOS 57 U/L (45-117); BILIRUBIN,TOTAL 0.6 mg/dL (0.2-1.0); CREATININE 1.5 mg/dL (0.55-1.02); SGOT/AST 10 U/L (15-37); SGPT/ALT 16 U/L (12-78); TOT PROT 4.8 g/dl (6.4-8.2)
[2017-04-15] MEDS ORDERED: PT OWN MED DRAWER 7, Y5N ONE ×2 (09:42→20:11)
[2017-04-15] MEDS: TIOTROPIUM BROMIDE 18 MCG/INH (DEVICE W/ 5 CAPSULES) IH SCH (09:47)
[2017-04-15] MEDS: BISACODYL 5 MG TABLET.DR (FP) PO SCH (09:48)
[2017-04-15] MEDS: RANITIDINE HCL 150 MG TABLET (FP) PO SCH (09:48)
[2017-04-15] MEDS ORDERED: NYSTATIN 500,000 UNITS/5 ML SUSPENSION PO ONE (12:40)
--- NOTE | 2017-04-15 12:44 | PN ---
Progress Note, Physician Chief Complaint: AWAKE ALERT STILL SLIGHTLY CONFUSED EVENTS AND RECORDS REVIEWED LATE NIGHT CONFUSION - Current Medication List Current Medications: Active Medications Artificial Tears (Artificial Tears) 1 drop OU BID PRN PRN Reason: DRY EYES Bisacodyl (Dulcolax -) 10 mg PO DAILY [facility] Last Admin: 04/15/17 09:48 Dose: 10 mg Nystatin (Nystatin Oral Suspension -) 500,000 units PO ONCE ONE Stop: 04/15/17 12:41 Ranitidine HCl (Zantac -) 300 mg PO DAILY [facility] Last Admin: 04/15/17 09:48 Dose: 300 mg Tiotropium [place] (Spiriva -) 1 puff IH DAILY [facility] Last Admin: 04/15/17 09:47 Dose: 1 puff - Objective Vital Signs: Vital Signs Temperature 98 F 04/15/17 08:25 Pulse Rate 85 04/15/17 08:25 Respiratory Rate 20 04/15/17 08:25 Blood Pressure 117/64 04/15/17 08:25 O2 Sat by Pulse Oximetry (%) 99 04/15/17 08:00 Constitutional: Yes: Mild Distress Eyes: Yes: WNL HENT: Yes: WNL Neck: Yes: WNL Cardiovascular: Yes: WNL Respiratory: Yes: WNL Gastrointestinal: Yes: WNL Genitourinary: Yes: WNL Musculoskeletal: Yes: Muscle Weakness Extremities: Yes: WNL Edema: No Peripheral Pulses WNL: Yes Integumentary: Yes: WNL Wound/Incision: Yes: Clean/Dry Neurological: Yes: Confusion ...Motor Strength: LLE, RLE Psychiatric: Yes: Other Labs: CBC, BMP 04/13/17 12:05 04/15/17 05:20 Problem List - Problems (1) Acute kidney injury Code(s): N17.9 - ACUTE KIDNEY FAILURE, UNSPECIFIED (2) Anemia Code(s): D64.9 - ANEMIA, UNSPECIFIED Qualifiers: Other causes of anemia: chronic disease, other (3) COPD (chronic obstructive pulmonary disease) Code(s): J44.9 - CHRONIC OBSTRUCTIVE PULMONARY DISEASE, UNSPECIFIED (4) Decrease in appetite Code(s): R63.0 - ANOREXIA (5) Hypercalcemia Code(s): E83.52 - HYPERCALCEMIA Assessment/Plan NEUROLOGY EVAL STOP REMERON B/C CONFUSION CT HEAD NO ACUTE CHANGES TOXIC METABOLIC ENCEPHALOPATHY? VS OTHER OOB TO CHAIR D/W FAMILY FOR 30MINS
--- NOTE | 2017-04-15 13:50 | CON.NEURO ---
Consult - History of Present Illness History of Present Illness: 81 year old female, with a significant past medical history of COPD, who presents with acute kidney injury, weight loss, and hypercalcemia. per patient she has been losing weight for past few weeks bc she has no appetite and has noticed like her balance is off , she feels like she will fall. --H and H 8/25 , cr 2.2 and ca 11.9 feels balance is better and denies any focal motor , sensory c/o no MONTIEL , no back pain oriented CT HD moderate volume loss - Past Medical History [employer]ARD [employer]ER: No: Dementia Pulmonary: Yes: COPD ...: No - Past Surgical History Past Surgical History: Yes: Appendectomy - Alcohol/Substance Use Hx Alcohol Use: No History of Substance Use: reports: None - Smoking History Smoking history: Former smoker Have you smoked in the past 12 months: No If you are a former smoker, when did you quit?: 60 YRS AGO - Social History Usual Living Arrangement: Alone () Home Medications - Allergies Allergies/Adverse Reactions: Allergies Allergy/AdvReac Type Severity Reaction Status Date / Time No Known Allergies Allergy Verified 04/11/17 09:58 - Home Medications Home Medications: Ambulatory Orders Ranitidine HCl 300 mg PO DAILY 12/26/16 Cholecalciferol (Vitamin D3) [Vitamin D3] 2,000 unit PO DAILY 04/11/17 L.acidoph,Paracasei, B.lactis [Probiotic] 1 each PO HS 04/11/17 Mirtazapine [Remeron -] 15 mg PO HS 04/11/17 Multivit-Min/FA/Lycopen/Lutein [Centrum Silver Tablet] 1 each PO DAILY 04/11/17 Polyethylene Glycol 3350 [Miralax (For Daily Use) -] 17 gm PO DAILY 04/11/17 Tiotropium [place] [Spiriva] 1 inh IH DAILY 04/11/17 Physical Exam-Neuro Vital Signs: Vital Signs Temperature 98 F 04/15/17 08:25 Pulse Rate 85 04/15/17 08:25 Respiratory Rate 20 04/15/17 08:25 Blood Pressure 117/64 04/15/17 08:25 O2 Sat by Pulse Oximetry (%) 99 04/15/17 08:00 Constitutional: Yes: No Distress, Calm Neck: Yes: WNL Labs: CBC, BMP 04/13/17 12:05 04/15/17 05:20 - Neuro Exam Level Of Consciousness: Yes: Alert (awake and laert, EOMI, no facial, motor 5/5 , no drift, no ataxia , reflexes trace , gait steady without assistance ) Imaging - Results Cat Scan: Report Reviewed, Image Reviewed Problem List - Problems (1) Acute kidney injury Code(s): N17.9 - ACUTE KIDNEY FAILURE, UNSPECIFIED (2) Anemia Code(s): D64.9 - ANEMIA, UNSPECIFIED Qualifiers: Other causes of anemia: chronic disease, other (3) Decrease in appetite Code(s): R63.0 - ANOREXIA (4) Gait abnormality Code(s): R26.9 - UNSPECIFIED ABNORMALITIES OF GAIT AND MOBILITY (5) Delirium Code(s): R41.0 - DISORIENTATION, UNSPECIFIED Assessment/Plan resolving delirium and gait instability likely metabolic in origin , ARF and high CA CT HD -nonfocal and nonfocal exam Cancer HELLER for weight loss/anemia --FU HEM /ONC consult , FU lytes, renal no evidence of a stroke, or primary neuro issue Dr Caldera
--- NOTE | 2017-04-15 14:43 | PN ---
Progress Note (short form) - Note Progress Note: Renal follow up for hypercalcemia and ANGEL Pt seen and examined at the bedside awake and alert no acute complaints no sob, chest pain, abd pain, N/V/D making urine Vital Signs Temperature 98 F 04/15/17 08:25 Pulse Rate 85 04/15/17 08:25 Respiratory Rate 20 04/15/17 08:25 Blood Pressure 117/64 04/15/17 08:25 O2 Sat by Pulse Oximetry (%) 99 04/15/17 08:00 Intake & Output 04/12/17 04/13/17 04/14/17 04/15/17 23:59 23:59 23:59 23:59 Intake Total 2400 2555 900 200 Balance 2400 2555 900 200 NAD awake and alert RRR, no M/R CTA soft NT/ND Abd No LE edema CBC, BMP 04/13/17 12:05 04/15/17 05:20 Current Medications Artificial Tears (Artificial Tears) 1 drop OU BID PRN PRN Reason: DRY EYES Bisacodyl (Dulcolax -) 10 mg PO DAILY [facility] Last Admin: 04/15/17 09:48 Dose: 10 mg Ranitidine HCl (Zantac -) 300 mg PO DAILY [facility] Last Admin: 04/15/17 09:48 Dose: 300 mg Tiotropium [place] (Spiriva -) 1 puff IH DAILY [facility] Last Admin: 04/15/17 09:47 Dose: 1 puff A/P 81 year old woman with PMhx of COPD who presented with weight loss and found to have hypercalcemia and ANGEL. #Acute Kidney Injury Urine studies show a bland UA w/o proteinuira Renal Us showed asymmetric kidneys Cr improved rom 1.5 from 2.2 on presentation off IVF tolerated oral diet making urine check renal artery doppler to r/o stenosis check Urine protein to creatinine ratio Trend BUN/Cr no indiction for [employer] #Hypercalcemia now improved s/p IVF PTH is WNL so not hyperparathyrodism trend ca Thank you Will follow Geovanny Geiger DO
[2017-04-15] MEDS: ARTIFICIAL TEARS (POLYVINYL ALCOHOL 1.4%) OPTH DROPS OU PRN (21:11)
[2017-04-16 07:33] LABS: BASOPHIL 0.6 % (0-2.0); EOSINOPHIL 3.5 % (0-4.5); MCH 30.5 pg (25.7-33.7); MCHC 35.5 g/dl (32.0-36.0); MEAN CELL VOLUME 86.1 fl (80-96); MEAN PLT VOLUME 7.8 fl (7.5-11.1); NEUTROPHILS 69.7 % (42.8-82.8); PLATELET COUNT 116 K/MM3 (134-434); RDW 16.8 % (11.6-15.6); WHITE BLOOD COUNT 3.1 K/mm3 (4.0-10.0)
[2017-04-16 08:17] LABS: ANION GAP 8 (8-16); CALCIUM 9.2 mg/dL (8.5-10.1); CO2 27 mmol/L (21-32); CREATININE 1.5 mg/dL (0.55-1.02); GLUCOSE,RANDOM 80 mg/dL (74-106); MAGNESIUM 2.2 mg/dL (1.8-2.4); PHOSPHOROUS 2.5 mg/dL (2.5-4.9)
[2017-04-16] MEDS: BISACODYL 5 MG TABLET.DR (FP) PO SCH (09:30)
[2017-04-16] MEDS: TIOTROPIUM BROMIDE 18 MCG/INH (DEVICE W/ 5 CAPSULES) IH SCH (09:31)
[2017-04-16] MEDS: RANITIDINE HCL 150 MG TABLET (FP) PO SCH (09:31)
--- NOTE | 2017-04-16 12:10 | PN ---
Progress Note, Physician Chief Complaint: AWAKE ALERT LESS CONFUSION NO CP NO SOB - Current Medication List Current Medications: Active Medications Artificial Tears (Artificial Tears) 1 drop OU BID PRN PRN Reason: DRY EYES Last Admin: 04/15/17 21:11 Dose: 1 drop Bisacodyl (Dulcolax -) 10 mg PO DAILY [facility] Last Admin: 04/16/17 09:30 Dose: Not Given Ranitidine HCl (Zantac -) 300 mg PO DAILY [facility] Last Admin: 04/16/17 09:31 Dose: Not Given Tiotropium [place] (Spiriva -) 1 puff IH DAILY [facility] Last Admin: 04/16/17 09:31 Dose: Not Given - Objective Vital Signs: Vital Signs Temperature 97.5 F L 04/16/17 10:00 Pulse Rate 68 04/16/17 10:00 Respiratory Rate 18 04/16/17 10:00 Blood Pressure 139/63 04/16/17 10:00 O2 Sat by Pulse Oximetry (%) 99 04/16/17 09:00 Constitutional: Yes: Mild Distress Eyes: Yes: WNL HENT: Yes: WNL Neck: Yes: WNL Cardiovascular: Yes: WNL Respiratory: Yes: WNL Gastrointestinal: Yes: WNL Genitourinary: Yes: WNL Musculoskeletal: Yes: WNL Extremities: Yes: WNL Edema: No Peripheral Pulses WNL: Yes Integumentary: Yes: WNL Wound/Incision: Yes: Clean/Dry Neurological: Yes: WNL ...Motor Strength: WNL Psychiatric: Yes: WNL Labs: CBC, BMP 04/16/17 05:20 04/16/17 05:20 Problem List - Problems (1) Acute kidney injury Code(s): N17.9 - ACUTE KIDNEY FAILURE, UNSPECIFIED (2) Anemia Code(s): D64.9 - ANEMIA, UNSPECIFIED Qualifiers: Other causes of anemia: chronic disease, other (3) COPD (chronic obstructive pulmonary disease) Code(s): J44.9 - CHRONIC OBSTRUCTIVE PULMONARY DISEASE, UNSPECIFIED (4) Decrease in appetite Code(s): R63.0 - ANOREXIA (5) Hypercalcemia Code(s): E83.52 - HYPERCALCEMIA Assessment/Plan LESS CONFUSED TODAY OOB TO CHAIR PT EVAL SNF IF PATIENT AGREES
--- NOTE | 2017-04-17 08:54 | PN ---
Progress Note, Physician History of Present Illness: PERIODS OF CONFUSION - Current Medication List Current Medications: Active Medications Artificial Tears (Artificial Tears) 1 drop OU BID PRN PRN Reason: DRY EYES Last Admin: 04/15/17 21:11 Dose: 1 drop Bisacodyl (Dulcolax -) 10 mg PO DAILY [facility] Last Admin: 04/16/17 09:30 Dose: Not Given Ranitidine HCl (Zantac -) 300 mg PO DAILY [facility] Last Admin: 04/16/17 09:31 Dose: Not Given Tiotropium [place] (Spiriva -) 1 puff IH DAILY [facility] Last Admin: 04/16/17 09:31 Dose: Not Given - Objective Vital Signs: Vital Signs Temperature 98.3 F 04/17/17 06:00 Pulse Rate 84 04/17/17 06:00 Respiratory Rate 18 04/17/17 06:00 Blood Pressure 116/58 04/17/17 06:00 O2 Sat by Pulse Oximetry (%) 98 04/16/17 21:00 Cardiovascular: Yes: Regular Rate and Rhythm Respiratory: Yes: Regular, CTA Bilaterally Gastrointestinal: Yes: Normal Bowel Sounds, Soft Labs: CBC, BMP 04/16/17 05:20 04/16/17 05:20 Problem List - Problems (1) Hypercalcemia Assessment/Plan: IMPROVING W/U IN PROGRESS R/O MM--MALIGNANCY CT SCAN noted -splenomegally Code(s): E83.52 - HYPERCALCEMIA (2) Acute kidney injury Assessment/Plan: resolving dc ivf monitor Code(s): N17.9 - ACUTE KIDNEY FAILURE, UNSPECIFIED (3) COPD (chronic obstructive pulmonary disease) Assessment/Plan: stable Code(s): J44.9 - CHRONIC OBSTRUCTIVE PULMONARY DISEASE, UNSPECIFIED (4) Anemia Assessment/Plan: MONITOR COUNTS DROPPING MAY BE DUE TO HYDRATION GI CONSULT NOTED D/W HEM--WILL TRANSFUSE ONE UNIT PRIOR TO DC Code(s): D64.9 - ANEMIA, UNSPECIFIED Qualifiers: Qualified Code(s): D63.8 - Anemia in other chronic diseases classified elsewhere; D63.8 - Anemia in other chronic diseases classified elsewhere (5) Renal cyst Assessment/Plan: US NOTED Code(s): N28.1 - CYST OF KIDNEY, ACQUIRED (6) Splenomegaly Assessment/Plan: US NOTED Code(s): R16.1 - SPLENOMEGALY, NOT ELSEWHERE CLASSIFIED (7) Tachycardia Assessment/Plan: SHORT RUNS MAYBE DUE TO ANEMIA EKG CARDIO NOTED ECHO NL LV Code(s): R00.0 - TACHYCARDIA, UNSPECIFIED (8) Confusion Assessment/Plan: WILL D/W FAMILY Code(s): R41.0 - DISORIENTATION, UNSPECIFIED Assessment/Plan -
[2017-04-17 09:32] LABS: BASOPHIL 0.7 % (0-2.0); EOSINOPHIL 2.1 % (0-4.5); MCH 30.1 pg (25.7-33.7); MCHC 34.7 g/dl (32.0-36.0); MEAN CELL VOLUME 86.9 fl (80-96); MEAN PLT VOLUME 7.6 fl (7.5-11.1); NEUTROPHILS 73.9 % (42.8-82.8); PLATELET COUNT 116 K/MM3 (134-434); RDW 17.2 % (11.6-15.6); WHITE BLOOD COUNT 3.5 K/mm3 (4.0-10.0)
[2017-04-17] MEDS: BISACODYL 5 MG TABLET.DR (FP) PO SCH (09:57)
[2017-04-17] MEDS: RANITIDINE HCL 150 MG TABLET (FP) PO SCH (09:57)
[2017-04-17] MEDS: ARTIFICIAL TEARS (POLYVINYL ALCOHOL 1.4%) OPTH DROPS OU PRN (09:57)
[2017-04-17] MEDS: TIOTROPIUM BROMIDE 18 MCG/INH (DEVICE W/ 5 CAPSULES) IH SCH (09:57)
[2017-04-17 10:13] LABS: ALBUMIN 3.4 g/dl (3.4-5.0); ALK PHOS 67 U/L (45-117); ANION GAP 7 (8-16); BILIRUBIN,TOTAL 0.8 mg/dL (0.2-1.0); CALCIUM 9.6 mg/dL (8.5-10.1); CO2 27 mmol/L (21-32); CREATININE 1.5 mg/dL (0.55-1.02); GLUCOSE,RANDOM 103 mg/dL (74-106); SGOT/AST 13 U/L (15-37); SGPT/ALT 18 U/L (12-78); TOT PROT 5.3 g/dl (6.4-8.2)
[2017-04-17 12:14] LABS: URINE CREATININE 50.8 mg/dL (20-320)
--- NOTE | 2017-04-17 18:50 | PN ---
Progress Note (short form) - Note Progress Note: Renal follow up for hypercalcemia and ANGEL Pt seen and examined at the bedside no acute complaints no sob, chest pain, n/v/d making urine no flank pain Vital Signs Temperature 98.2 F 04/17/17 14:27 Pulse Rate 89 04/17/17 14:27 Respiratory Rate 16 04/17/17 14:27 Blood Pressure 135/59 04/17/17 14:27 O2 Sat by Pulse Oximetry (%) 98 04/17/17 09:00 Intake & Output 04/14/17 04/15/17 04/16/17 04/17/17 23:59 23:59 23:59 23:59 Intake Total 103 607 2144 1110 Balance 771 197 2977 1110 NAD awake and alert RRR, no M/R CTA soft NT/ND Abd No LE edema CBC, BMP 04/17/17 09:15 04/17/17 09:15 Current Medications Artificial Tears (Artificial Tears) 1 drop OU BID PRN PRN Reason: DRY EYES Last Admin: 04/17/17 09:57 Dose: 1 drp Bisacodyl (Dulcolax -) 10 mg PO DAILY [facility] Last Admin: 04/17/17 09:57 Dose: Not Given Ranitidine HCl (Zantac -) 300 mg PO DAILY [facility] Last Admin: 04/17/17 09:57 Dose: 300 mg Tiotropium [place] (Spiriva -) 1 puff IH DAILY [facility] Last Admin: 04/17/17 09:57 Dose: 1 puff A/P 81 year old woman with PMhx of COPD who presented with weight loss and found to have hypercalcemia and ANGEL. #Acute Kidney Injury Renal function stable at this time, however not at baseline Cr of 0.9 unable to perform renal artery Doppler as a inpatient would maintain off GRACE/ARB/NSAIDs at this time continue to trend BUN/Cr as outpatient #Hypercalcemia now improved s/p IVF PTH is WNL so not hyperparathyrodism will need be of vit d supplaments check vit d levels Thank you Will follow Geovanny Geiger DO
[2017-04-18 08:39] LABS: BASOPHIL 0.8 % (0-2.0); EOSINOPHIL 2.2 % (0-4.5); MCHC 34.5 g/dl (32.0-36.0); MEAN CELL VOLUME 86.9 fl (80-96); MEAN PLT VOLUME 7.5 fl (7.5-11.1); PLATELET COUNT 107 K/MM3 (134-434); RDW 16.7 % (11.6-15.6); WHITE BLOOD COUNT 3.7 K/mm3 (4.0-10.0)
[2017-04-18 08:58] LABS: ANION GAP 5 (8-16); CALCIUM 9.1 mg/dL (8.5-10.1); CO2 30 mmol/L (21-32); CREATININE 1.6 mg/dL (0.55-1.02); GLUCOSE,RANDOM 119 mg/dL (74-106)
--- NOTE | 2017-04-18 09:09 | PATH ---
Surgical Pathology Report Patient Name: GARCIA PENA [facility]. Rec. #: [id number] /Age/Gender: 1935 (Age: 81) / F Account: [id number] Location: 4 W TELEMETRY U Taken: 04/14/2017 Received: 04/14/2017 Reported: 04/18/2017 Physicians: Laney Garcia M.D. Specimen(s) Received PERIPHERAL BLOOD Clinical History None Provided Final Diagnosis PERIPHERAL BLOOD: FLOW CYTOMETRY performed and interpreted at [facility], [place], [place] ([id number]) shows the following: INTERPRETATION: Small (1% of total events) atypical B-cell population with nonspecific immunophenotype is noted within a polytypic background, see comment. The monocytic cells are 15% of total events, see comment. Comment: The significance of the small atypical B-cell population is uncertain. The differential diagnosis includes monoclonal B lymphocytosis (MBL) and very low level peripheral blood involvement by a low-grade B-cell lymphoproliferative process with nonspecific immunophenotype (such as marginal zone lymphoma or lymphoplasmacytic lymphoma). Clinical, imaging, and laboratory correlation is essential. The monocytosis is a nonspecific finding and of indeterminate significance. .Correlation with the results of the molecular studies is essential. Phenotype: Small (<1% of total events) atypical (negative for surface and cytoplasmic immunoglobulin light chain expression) B-cell population with moderate CD19 and moderate-bright CD20 and FMC7 expression, negative for CD5, CD10, and CD103, is noted. The CD34+ myeloblasts are less than 0.1%. Granulocytes are 80% of total cells. Monocytes are 15% of total cells. There is no overt abnormal myeloid antigen expression. The T-cells (4% of total) show no deras T-cell antigenic deletion. .The CD4:CD8 ratio is 4.2:1, the T-LGLs are 0.4% of total, the NK cells are 1.1% of total events. Cytogenetic and Molecular studies are pending, and a report will follow. Electronically Signed Víctor Vieira M.D. Addendum Reported: 04/20/2017 Addendum Diagnosis PERIPHERAL BLOOD: Molecular Pathology Report received from [facility] in [place], [place] ([id number]) shows the following: JAK2 [id number] MUTATION ANALYSIS BY PCR RESULTS: Only the wild-type JAK2 sequence was detected. INTERPRETATION: Negative for JAK2 (V617F) mutation Víctor Vieira M.D. Addendum Reported: 04/26/2017 Addendum Diagnosis Cytogenetics Report received from [facility], [place], [place] ([id number]) shows the following: TEST RESULTS: 45,X,-X,add(1)(q21),add(6)(q11),christa(22)t(1;22)(q21;q11.2)[16]/46,XX[4] DIAGNOSTIC INTERPRETATION: ABNORMAL KARYOTYPE -consistent with a lymphoid disorder Sixteen of twenty analyzed cells exhibited the following numerical and structural abnormalities: - loss of one X chromosome, - unidentified chromatin added to the proximal long arm of one chromosome 1 and to the proximal long arm of one chromosome 6, - a derivative chromosome 22, derived from.an unbalanced translocation that places most of the long arm of a chromosome 1 onto the proximal long arm of the chromosome 22, resulting in loss of one copy of the chromosome 22 long arm. The remaining four cells had a normal chromosome complement. While not specific for a particular hematologic disorder, this karyotype is consistent with a lymphoid neoplasm. Please correlate with clinical presentation and other diagnostic modalities. No other consistent numerical or structural chromosome abnormalities were observed. Subtle rearrangements or the presence of an aberrant clone in a low proportion of cells cannot be ruled out. Analysis was performed on cells from an unstimulated tissue culture and a tissue culture that was stimulated with lymphoid mitogens. See [facility] report for additional details. Víctor Vieira M.D. Gross Description Received labelled with the patient's name are 2 lavender top tubes and 2 green top tubes of peripheral blood which are forwarded to [facility] for ancillary testing.
[2017-04-18] MEDS: BISACODYL 5 MG TABLET.DR (FP) PO SCH (09:11)
[2017-04-18] MEDS: ARTIFICIAL TEARS (POLYVINYL ALCOHOL 1.4%) OPTH DROPS OU PRN (09:12)
[2017-04-18] MEDS: TIOTROPIUM BROMIDE 18 MCG/INH (DEVICE W/ 5 CAPSULES) IH SCH (09:12)
[2017-04-18] MEDS: RANITIDINE HCL 150 MG TABLET (FP) PO SCH (09:12)
--- NOTE | 2017-04-18 11:12 | PN ---
Progress Note (short form) - Note Progress Note: Renal follow up for hypercalcemia and ANGEL Pt seen and examined at the bedside awake and alert no acute complaints no sob, chest pain, abd pain, N/V/D Vital Signs Temperature 97.8 F 04/18/17 08:50 Pulse Rate 71 04/18/17 08:50 Respiratory Rate 18 04/18/17 08:50 Blood Pressure 121/62 04/18/17 08:50 O2 Sat by Pulse Oximetry (%) 98 04/18/17 08:44 Intake & Output 04/15/17 04/16/17 04/17/17 04/18/17 23:59 23:59 23:59 23:59 Intake Total 560 2050 1110 10 Balance 560 2050 1110 10 NAD awake and alert RRR CTA no LE edema CBC, BMP 04/18/17 08:20 04/18/17 08:20 Laboratory Tests 04/18/17 08:20 Calcium 9.1 Current Medications Artificial Tears (Artificial Tears) 1 drop OU BID PRN PRN Reason: DRY EYES Last Admin: 04/18/17 09:12 Dose: 1 drp Bisacodyl (Dulcolax -) 10 mg PO DAILY [facility] Last Admin: 04/18/17 09:11 Dose: Not Given Ranitidine HCl (Zantac -) 300 mg PO DAILY [facility] Last Admin: 04/18/17 09:12 Dose: 300 mg Tiotropium [place] (Spiriva -) 1 puff IH DAILY [facility] Last Admin: 04/18/17 09:12 Dose: 1 puff A/P 81 year old woman with PMhx of COPD who presented with weight loss and found to have hypercalcemia and ANGEL. #Acute Kidney Injury Renal function improved but still above baseline Urine studies showed a bland urine and w/o significant proteinuira trend BUN/Cr renal artery doppler to be done as a outpatient #Hypercalcemia now improved s/p IVF PTH is WNL so not hyperparathyrodism will need be of vit d supplements check vit d levels stable for dc and follow up as outpatient from renal perspective Geovanny Geiger DO
--- NOTE | 2017-04-18 15:55 | PN ---
Progress Note (short form) - Note Progress Note: PAtient seen and examined slight dizziness this morning Last Vital Signs Temp Pulse Resp BP Pulse Ox 98.8 F 79 18 116/69 98 04/18/17 15:00 04/18/17 15:00 04/18/17 15:00 04/18/17 15:00 04/18/17 08:44 Cor: RSR, No murmurs, No gallops Lungs: Clear to P&A Abd: Soft, Normal bowel sounds, No organomegaly Ext:No significant edema Skin: No rashes, Integument intact Labs/meds reviewed A/P 81 y/o patient with COPD/hypercalcemia/ANGEL on CD noted to have splenomegaly Bone scan negative LDH/iron studies/SIFE /TSH--nl flow s/o monoclonal B cell population---needs further w/u with PET-CT / ? biopsy based on PET-CT discussed plan in detail with patient/sister Contact no. given for close f/u in the ioffice
[2017-04-19 06:45] LABS: BASOPHIL 0.8 % (0-2.0); EOSINOPHIL 2.7 % (0-4.5); MCH 29.8 pg (25.7-33.7); MCHC 35.2 g/dl (32.0-36.0); MEAN CELL VOLUME 84.6 fl (80-96); MEAN PLT VOLUME 7.6 fl (7.5-11.1); NEUTROPHILS 70.9 % (42.8-82.8); PLATELET COUNT 105 K/MM3 (134-434); RDW 17.7 % (11.6-15.6); WHITE BLOOD COUNT 3.6 K/mm3 (4.0-10.0)
[2017-04-19 07:19] LABS: ANION GAP 11 (8-16); CALCIUM 8.8 mg/dL (8.5-10.1); CO2 24 mmol/L (21-32); GLUCOSE,RANDOM 83 mg/dL (74-106)
[2017-04-19 07:20] LABS: CREATININE 1.3 mg/dL (0.55-1.02)
--- NOTE | 2017-04-19 09:27 | DS ---
Physical Examination Vital Signs: Vital Signs Temperature 98.6 F 04/19/17 06:00 Pulse Rate 80 04/19/17 06:00 Respiratory Rate 20 04/19/17 09:00 Blood Pressure 106/49 04/19/17 06:00 O2 Sat by Pulse Oximetry (%) 97 04/19/17 09:00 Findings/Remarks: FEELS BETTER WANTS TO GO HOME Cardiovascular: Yes: Regular Rate and Rhythm Respiratory: Yes: Regular, CTA Bilaterally Gastrointestinal: Yes: Normal Bowel Sounds, Soft Neurological: Yes: Alert, Oriented Labs: CBC, BMP 04/19/17 05:12 04/19/17 05:12 Discharge Summary Reason For Visit: ACUTE KIDNEY INJURY,HYPERCALCEMIA Current Active Problems Acute kidney injury (Acute) Anemia (Acute) COPD (chronic obstructive pulmonary disease) (Acute) Confusion (Acute) Decrease in appetite (Acute) Delirium (Acute) Gait abnormality (Acute) Hypercalcemia (Acute) Renal cyst (Acute) Splenomegaly (Acute) Tachycardia (Acute) Hospital Course: - The patient is an 81 year old female, with a significant past medical history of COPD, who presents to the emergency department sent by Dr. Carnes for evaluation of acute kidney injury and weight loss with a reported creatinine of 2 (elevated from baseline) and a calcium of 11.3. per patient she has been losing weight for past few weeks bc she has no appetite and has noticed like her balance is off , she feels like she will fall. she denies nausea,constipation, but is complaining of dry mouth in ER noted to have hgb 9, cr 2.2 and ca 11.9 getting iv hydration History Source: Patient, Family Member - Past Medical History Pulmonary: Yes: COPD Problems (1) Hypercalcemia Assessment/Plan: IMPROVING W/U IN PROGRESS R/O MM--MALIGNANCY CT SCAN noted -splenomegally ONCOLOGY CONSULT 81 y/o patient with COPD/hypercalcemia/ANGEL on CD noted to have splenomegaly Bone scan negative LDH/iron studies/SIFE /TSH--nl flow s/o monoclonal B cell population---needs further w/u with PET-CT / ? biopsy based on PET-CT discussed plan in detail with patient/sister Contact no. given for close f/u in the office Code(s): E83.52 - HYPERCALCEMIA (2) Acute kidney injury Assessment/Plan: resolving dc ivf monitor Code(s): N17.9 - ACUTE KIDNEY FAILURE, UNSPECIFIED (3) COPD (chronic obstructive pulmonary disease) Assessment/Plan: stable Code(s): J44.9 - CHRONIC OBSTRUCTIVE PULMONARY DISEASE, UNSPECIFIED (4) Anemia Assessment/Plan: MONITOR COUNTS-STABLE NOW DROPPING MAY BE DUE TO HYDRATION GI CONSULT NOTED D/W HEM--WILL TRANSFUSE ONE UNIT PRIOR TO DC Code(s): D64.9 - ANEMIA, UNSPECIFIED Qualifiers: Qualified Code(s): D63.8 - Anemia in other chronic diseases classified elsewhere; D63.8 - Anemia in other chronic diseases classified elsewhere (5) Renal cyst Assessment/Plan: US NOTED Code(s): N28.1 - CYST OF KIDNEY, ACQUIRED (6) Splenomegaly Assessment/Plan: US NOTED Code(s): R16.1 - SPLENOMEGALY, NOT ELSEWHERE CLASSIFIED (7) Tachycardia Assessment/Plan: SHORT RUNS MAYBE DUE TO ANEMIA EKG CARDIO NOTED ECHO NL LV Code(s): R00.0 - TACHYCARDIA, UNSPECIFIED (8) Confusion Assessment/Plan: D/W FAMILY Code(s): R41.0 - DISORIENTATION, UNSPECIFIED (9) Metabolic Encephalopathy Assessment/Plan: monitor--/w family Condition: Stable - Instructions Diet, Activity, Other Instructions: follow up within a week for blood test Referrals: Vicente Carnes MD [Primary Care Provider] - 1 Week Subhash Ayala MD [Staff Physician] - Disposition: VNS/HOME HEALTH CARE - Home Medications Comprehensive Discharge Medication List: Ambulatory Orders Ranitidine HCl 300 mg PO DAILY 12/26/16 Cholecalciferol (Vitamin D3) [Vitamin D3] 2,000 unit PO DAILY 04/11/17 L.acidoph,Paracasei, B.lactis [Probiotic] 1 each PO HS 04/11/17 Mirtazapine [Remeron -] 15 mg PO HS 04/11/17 Multivit-Min/FA/Lycopen/Lutein [Centrum Silver Tablet] 1 each PO DAILY 04/11/17 Polyethylene Glycol 3350 [Miralax 119 gm Btl -] 17 gm PO DAILY 04/11/17 Tiotropium [place] [Spiriva] 1 inh IH DAILY 04/11/17
[2017-04-19] MEDS: TIOTROPIUM BROMIDE 18 MCG/INH (DEVICE W/ 5 CAPSULES) IH SCH (10:19)
[2017-04-19] MEDS: ARTIFICIAL TEARS (POLYVINYL ALCOHOL 1.4%) OPTH DROPS OU PRN (10:20)
[2017-04-19] MEDS: RANITIDINE HCL 150 MG TABLET (FP) PO SCH (10:20)
[2017-04-19] MEDS: BISACODYL 5 MG TABLET.DR (FP) PO SCH (10:20)
[2017-04-19 11:05] VITALS: BP 119/68; PULSE 72; TEMP 98.2
--- NOTE | 2017-04-19 18:19 | PN ---
Progress Note (short form) - Note Progress Note: Renal follow up for hypercalcemia and ANGEL Pt seen and examined at the bedside awake and alert no complaints Vital Signs Temperature 98.2 F 04/19/17 10:00 Pulse Rate 72 04/19/17 10:00 Respiratory Rate 18 04/19/17 10:00 Blood Pressure 119/68 04/19/17 10:00 O2 Sat by Pulse Oximetry (%) 97 04/19/17 09:00 Intake & Output 04/16/17 04/17/17 04/18/17 04/19/17 23:59 23:59 23:59 23:59 Intake Total 2049 1110 1030 270 Balance 2049 1110 1030 270 NAD awake and alert RRR CTA no LE edema CBC, BMP 04/19/17 05:12 04/19/17 05:12 A/P 81 year old woman with PMhx of COPD who presented with weight loss and found to have hypercalcemia and ANGEL. #Acute Kidney Injury Renal function improving to follow up in the office on discharge advised to maintian good oral intake of fluids and to avoid NDAIDs #Hypercalcemia now improved s/p IVF PTH is WNL so not hyperparathyrodism will need be of vit d supplements stable for dc and follow up as outpatient from renal perspective Geovanny Geiger DO
== END 2017-04-19 16:20 | disposition home health service (06) | DRG 682 ==
LOC: JER 09:49 → JERBED 12:29 → J4W 21:59
PROVIDERS: ADMIT Student in an Organized Health Care Education/Training Program; ATTEND Student in an Organized Health Care Education/Training Program
DX: N17.9 Acute kidney failure, unspecified (principal); G93.41 Metabolic encephalopathy; E83.52 Hypercalcemia; K21.9 Gastro-esophageal reflux disease without esophagitis; J44.9 Chronic obstructive pulmonary disease, unspecified; R63.0 Anorexia; E86.0 Dehydration; D64.9 Anemia, unspecified; Z87.891 Personal history of nicotine dependence; N28.1 Cyst of kidney, acquired; R16.1 Splenomegaly, not elsewhere classified; R00.0 Tachycardia, unspecified; R26.9 Unspecified abnormalities of gait and mobility; R41.0 Disorientation, unspecified
CPT/HCPCS: 36415; 36430; 70450-TC; 71010-TC; 71250-TC; 76775-TC; 76856-TC; 78306-TC; 80048; 80053; 81003; 82232; 82310; 82570; 82728; 82746; 83540; 83550; 83615; 83735; 83883; 83970; 84100; 84155; 84156; 84165; 84439; 84443; 84480; 84550; 85025; 85044; 85651; 86038; 86140; 86850; 86900; 86901; 86922; 88300-TC; 93005; 93010; 93306-TC; 97116-GP; 97161-GP; 99284-25; A9503; P9038; P9058

== ENCOUNTER 2017-06-26 08:05 | Day surgery (SDC) | payer OTHER, MEDICARE ==
[2017-06-23 11:21] VITALS: BMI 22.4
[2017-06-26 08:25] LABS: BASO % 0.4 % (0-2.0); EOS % 1.4 % (0-4.5); HEMATOCRIT 34.9 % (32.4-45.2); HEMOGLOBIN 11.7 GM/dL (10.7-15.3); LYMPH % 7.9 % (8-40); MCH 29.7 pg (25.7-33.7); MCHC 33.4 g/dl (32.0-36.0); MEAN CELL VOLUME 88.9 fl (80-96); MEAN PLT VOLUME 7.2 fl (7.5-11.1); NEUT % 78.3 % (42.8-82.8); PLATELET COUNT 123 K/MM3 (134-434); RBC 3.93 M/mm3 (3.60-5.2); RDW 16.1 % (11.6-15.6); WHITE BLOOD COUNT 5.5 K/mm3 (4.0-10.0)
[2017-06-26 08:32] VITALS: TEMP 97.3
[2017-06-26 09:01] LABS: INR 0.99 (0.82-1.09); PROTHROMBIN TIME (PATIENT) 11.2 SEC (9.98-11.88)
[2017-06-26 13:26] VITALS: PULSE 80
[2017-06-26 13:42] VITALS: BP 105/76
--- NOTE | 2017-06-30 12:26 | PATH ---
Surgical Pathology Report Patient Name: GARCIA PENA Med. Rec. #: [id number] /Age/Gender: 1935 (Age: 82) / F Account: [id number] Location: RADIOLOGY ULRAS Taken: 06/26/2017 Received: 06/26/2017 Reported: 06/30/2017 Physicians: Tan Lindsay M.D. 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 Comment: This case has been seen in consultation by Dr. Arias of [facility], [place], [place] ([id number]). His report includes the following: "Comments: Excisional lymph node biopsy with complete evaluation (including flow cytometry immunophenotyping) is suggested for definitive interpretation. Flow cytometry immunophenotyping, performed on a concurrent sample ([id number]), did not detect clonal B-cell populations or T-cell immunophenotypic aberrancies. Microscopic description: The specimen consists of needle core-shaped fragments of lymphoid tissue. No normal lymph node structures can be appreciated. There is a proliferation of polymorphous lymphocytes and histiocytes. The lymphocytes range from small-medium sized to scattered large forms with atypia, oval to irregular nuclei, vesicular chromatin, and conspicuous to prominent nucleoli. Clusters of epithelioid histiocytes are focally present. Immunostains demonstrate that the large cells are B-cells, co-expressing CD20, PAX-5, BCL-2, BCL-6 (focal), and MUM-1." See consult report for additional details. Also see prior peripheral blood flow cytometry specimen [id number]. Electronically Signed Víctor Vieira M.D. Gross Description Received in formalin labeled "right axilla," are 4 gan, cylindrical portions of soft tissue ranging from 0.3-1.5 cm in length and averaging 0.1 cm in diameter. The specimens are submitted in toto in one cassette. There is additional tissue received in RPMI solution which is sent for flow cytometry. 06/26/2017 [facility]06/26/2017
== END 2017-06-26 13:42 | disposition home or self-care (01) ==
LOC: JRADIR 08:05
PROVIDERS: ATTEND Internal Medicine Hematology & Oncology
PROC: 07D53ZX Extraction of Right Axillary Lymphatic, Percutaneous Approach, Diagnostic (ICD-10-PCS; principal; 2017-06-26)
DX: R59.0 Localized enlarged lymph nodes (principal)
CPT/HCPCS: 36415; 76942-TC; 85025; 85610; 88305-TC

== ENCOUNTER 2017-07-14 05:11 | Day surgery (SDC) | payer OTHER, MEDICARE ==
[2017-07-12 12:50] VITALS: BMI 22.4
--- NOTE | 2017-07-14 12:24 | HP ---
History & Physical Update - History History: No Change - Physical Physical: No Change - Assessment Assessment: No Change - Plan Plan: No Change (82 y/o white female for right axillary lymph node bx.r/b/t/a's d/w the patient in the office and informed consent obtained.)
[2017-07-14] MEDS ORDERED: DEXAMETHASONE SOD PHOSPHATE 4 MG/1 ML VIAL ONE (12:38)
[2017-07-14] MEDS ORDERED: SUCCINYLCHOLINE CHLORIDE 200 MG/10 ML VIAL ONE (12:38)
[2017-07-14] MEDS ORDERED: PROPOFOL 20 ML ONE ×2 (12:38→13:56)
[2017-07-14] MEDS ORDERED: MIDAZOLAM HCL 2 MG/2 ML SINGLE DOSE VIAL ONE ×2 (12:38→13:56)
[2017-07-14] MEDS ORDERED: LIDOCAINE HCL 1%, 10 MG/ML (20ML VIAL) ONE (13:41)
[2017-07-14] MEDS ORDERED: BUPIVACAINE HCL/PF 0.5% (5MG/ML) 10 ML VIAL ONE (13:47)
[2017-07-14] MEDS ORDERED: LIDOCAINE HCL/PF 2% SDV 5ML VIAL ONE (13:56)
[2017-07-14] MEDS ORDERED: BUPIVACAINE HCL/PF 0.5% (5MG/ML) 10 ML VIAL IJ ONE (14:20)
[2017-07-14] MEDS ORDERED: LIDOCAINE HCL 1%, 10 MG/ML (20ML VIAL) INF ONE (14:20)
[2017-07-14] MEDS ORDERED: ONDANSETRON 4 MG/2 ML VIAL IVPUSH PRN (14:59)
[2017-07-14] MEDS ORDERED: oxyCODONE HCL 5 MG TABLET PO PRN (14:59)
[2017-07-14] MEDS ORDERED: ACETAMINOPHEN 325 MG TABLET (FP) PO PRN (14:59)
[2017-07-14] MEDS ORDERED: ELECTROLYTE-148 SOLN 1,000 ML IV SCH (15:00)
--- NOTE | 2017-07-14 15:10 | OP ---
Operative Note - Note: Operative Date: 07/14/17 Pre-Operative Diagnosis: right axillary mass Operation: excision of right axillary mass Surgeon: Mane Sanchez Veterinary Nurse: Leanne Dickens Anesthesiologist/STOGY MAKER: Aimee Meneses Specimens Removed: right axillary mass Estimated Blood Loss (mls): 5 Operative Report Dictated: Yes
[2017-07-14 15:56] VITALS: TEMP 97.9
[2017-07-14 17:22] VITALS: BP 126/54; PULSE 80
--- NOTE | 2017-07-20 16:08 | PATH ---
Surgical Pathology Report Patient Name: GARCIA PENA [facility]. Rec. #: [id number] /Age/Gender: 1935 (Age: 82) / F Account: [id number] Location: [facility] SURGICAL Taken: 07/14/2017 Received: 07/14/2017 Reported: 07/20/2017 Physicians: Mane Sanchez MD Specimen(s) Received RIGHT AXILLA LYMPH NODE Clinical History Right axillary adenopathy Final Diagnosis AXILLA, RIGHT, LYMPH NODE, EXCISION: DIFFUSE LARGE B-CELL LYMPHOMA, NON-GERMINAL CENTER B-CELL-LIKE. SEE COMMENT. Comment: Histologic sections show an enlarged lymph node with effacement of the normal architecture by a vaguely nodular and partially diffuse process. There are numerous scattered large atypical lymphoid cells with moderate cytoplasm, irregular nuclear contours, open chromatin, and occasional prominent nucleoli. Immunohistochemical stains are performed with appropriate controls. The large atypical cells are positive for CD20, PAX-5, and BCL-2. They are negative for CD10, BCL-6, MUM-1, and Cyclin-D1. A stain for CD3 highlights numerous scattered T-cells. A stain for CD5 is similiar to that of CD3. A stain for CD21 highlights residual disrupted follicular dendritic cell meshworks. A stain for Ki-67 is positive in most of the larger atypical cells. In-situ hybridization for DIPAK is negative. Lymphoproliferative flow panel performed and interpreted at [facility] [place], [place] ([id number]) shows the small (4% of total events) atypical B-cell population with non-specific immunophenotype and no definite surface or cytoplasmic immunoglobulin light chain expression/restriction is noted within the polytypic background. This case was sent to Dr. Jose Parkinson from [facility], [place], [place] ([id number]) the diagnosis above reflects his opinion. See [facility] reports ([id number] and [id number]) for additional details. Electronically Signed Aletha Hawk M.D. Gross Description Received fresh labeled "right axilla lymph node biopsy," is a 1.9 x 0.9 x 0.6 cm gan, irregular lymph node. The lymph node is bisected and a touch prep is performed. A farm loan representative portion is placed and RPMI solution and sent for flow cytometry. The remainder of the specimen is entirely submitted in one cassette. 07/14/2017 [place]07/14/2017
== END 2017-07-14 17:05 | disposition home or self-care (01) ==
LOC: JASU-SURG 05:11
PROVIDERS: ATTEND Surgery
PROC: 07B50ZX Excision of Right Axillary Lymphatic, Open Approach, Diagnostic (ICD-10-PCS; principal; 2017-07-14 13:00)
DX: C83.34 Diffuse large B-cell lymphoma, lymph nodes of axilla and upper limb (principal)
CPT/HCPCS: 88305-TC; 94760

== ENCOUNTER 2017-08-30 07:21 | Day surgery (SDC) | payer OTHER, MEDICARE ==
[~2017-08-30 07:21] MED LIST: ACETAMINOPHEN 325 MG TABLET (FP) PO ONE; CYCLOPHOSPHAMIDE IVPB ONE; DEXAMETHASONE IVPB ONE; DIPHENHYDRAMINE IVPB ONE; DOXORUBICIN HCL IV ONE; ONDANSETRON IVPB ONE; RITUXIMAB 500 MG, RITUXIMAB 85 MG in SODIUM CHLORIDE 526.5 ML IVPB ONE; SODIUM CHLORIDE 1,000 ML IV SCH; SODIUM CHLORIDE IV ONE; SODIUM CHLORIDE IVPB ONE; [UNRECOGNIZED DRUG - OTHER] IVPB ONE; vinCRIStine SULFATE 1 MG in SODIUM CHLORIDE 50 ML IVPB ONE
[2017-08-30] MEDS ORDERED: SODIUM CHLORIDE 1,000 ML IV SCH (09:00)
[2017-08-30] MEDS ORDERED: SODIUM CHLORIDE 750 ML IV SCH (09:00)
[2017-08-30] MEDS ORDERED: SODIUM CHLORIDE 500 ML IV SCH ×2 (09:00)
[2017-08-30 09:01] LABS: BASO % 0.4 % (0-2.0); EOS % 0.8 % (0-4.5); HEMATOCRIT 36.1 % (32.4-45.2); HEMOGLOBIN 12.5 GM/dL (10.7-15.3); LYMPH % 7.2 % (8-40); MCH 29.9 pg (25.7-33.7); MCHC 34.5 g/dl (32.0-36.0); MEAN CELL VOLUME 86.4 fl (80-96); NEUT % 80.6 % (42.8-82.8); PLATELET COUNT 83 K/MM3 (134-434); RBC 4.17 M/mm3 (3.60-5.2); RDW 15.5 % (11.6-15.6); WHITE BLOOD COUNT 5.3 K/mm3 (4.0-10.0)
[2017-08-30 09:27] LABS: ALK PHOS 83 U/L (45-117); ANION GAP 10 (8-16); BILIRUBIN,DIRECT 0.2 mg/dL (0.0-0.2); BILIRUBIN,TOTAL 0.7 mg/dL (0.2-1.0); BLOOD UREA NITROGEN 21 mg/dL (7-18); CALCIUM 9.6 mg/dL (8.5-10.1); CHLORIDE 107 mmol/L (98-107); CO2 24 mmol/L (21-32); CREATININE 1.1 mg/dL (0.55-1.02); GLUCOSE,RANDOM 99 mg/dL (74-106); MAGNESIUM 2.4 mg/dL (1.8-2.4); POTASSIUM 3.9 mmol/L (3.5-5.1); SGOT/AST 19 U/L (15-37); SGPT/ALT 15 U/L (12-78); SODIUM 141 mmol/L (136-145); TOT PROT 6.4 g/dl (6.4-8.2); URIC ACID 4.1 mg/dL (2.6-7.2)
[2017-08-30 09:29] LABS: BILIRUBIN,TOTAL 0.9 mg/dL (0.2-1.0); TOT PROT 6.2 g/dl (6.4-8.2)
[2017-08-30] MEDS ORDERED: ACETAMINOPHEN 325 MG TABLET (FP) PO ONE (10:00)
[2017-08-30] MEDS ORDERED: DIPHENHYDRAMINE IVPB ONE (10:00)
[2017-08-30] MEDS ORDERED: [UNRECOGNIZED DRUG - OTHER] IVPB ONE (10:00)
[2017-08-30] MEDS ORDERED: ONDANSETRON IVPB ONE (10:00)
[2017-08-30] MEDS ORDERED: DEXAMETHASONE IVPB ONE (10:00)
[2017-08-30] MEDS ORDERED: PORTA CATH FLUSH 10 ML IVPUSH ONE ×2 (10:12→17:48)
[2017-08-30 10:13] VITALS: TEMP 97.4
[2017-08-30] MEDS ORDERED: RITUXIMAB 500 MG, RITUXIMAB 85 MG in SODIUM CHLORIDE 526.5 ML IVPB ONE (10:30)
[2017-08-30] MEDS ORDERED: CYCLOPHOSPHAMIDE IVPB ONE (14:00)
[2017-08-30] MEDS ORDERED: SODIUM CHLORIDE IVPB ONE (14:00)
[2017-08-30] MEDS ORDERED: SODIUM CHLORIDE IV ONE (14:30)
[2017-08-30] MEDS ORDERED: DOXORUBICIN HCL IV ONE (14:30)
[2017-08-30] MEDS ORDERED: vinCRIStine SULFATE 1 MG in SODIUM CHLORIDE 50 ML IVPB ONE (15:00)
[2017-08-30] MEDS ORDERED: SODIUM CHLORIDE 250 ML IV ONE (16:30)
[2017-08-30 18:15] VITALS: PULSE 68
[2017-08-30 18:16] VITALS: BP 119/69
== END 2017-08-30 18:16 | disposition home or self-care (01) ==
LOC: JONCCHEMO 07:21 → J7W 09:29 → JONCCHEMO 18:16
PROVIDERS: ATTEND Internal Medicine Hematology & Oncology
DX: Z51.11 Encounter for antineoplastic chemotherapy (principal); C83.30 Diffuse large B-cell lymphoma, unspecified site
CPT/HCPCS: 36415; 80053; 80076; 83615; 83735; 84550; 85025; 96361; 96367; 96375; 96413; 96415; 96417; J1100; J7030; J9070; J9310; J9370

== ENCOUNTER 2017-08-31 07:30 | Day surgery (SDC) | payer OTHER, MEDICARE ==
[2017-08-31] MEDS ORDERED: PEGFILGRASTIM 6 MG/0.6 ML DISP.SYRIN SQ ONE (10:00)
[2017-08-31] MEDS ORDERED: SODIUM CHLORIDE 1,000 ML IV SCH (10:00)
[2017-08-31] MEDS ORDERED: SODIUM CHLORIDE 500 ML IV ONE (14:00)
[2017-08-31 16:31] VITALS: BP 129/68; PULSE 67; TEMP 97.5
== END 2017-08-31 16:00 | disposition home or self-care (01) ==
LOC: JONCCHEMO 07:30 → J7W 13:07 → JONCCHEMO 16:00
PROVIDERS: ATTEND Internal Medicine Hematology & Oncology
PROC: 3E013GC Introduction of Other Therapeutic Substance into Subcutaneous Tissue, Percutaneous Approach (ICD-10-PCS; principal; 2017-08-31)
PROC: 3E0437Z Introduction of Electrolytic and Water Balance Substance into Central Vein, Percutaneous Approach (ICD-10-PCS; 2017-08-31)
DX: C83.30 Diffuse large B-cell lymphoma, unspecified site (principal); Z76.89 Persons encountering health services in other specified circumstances
CPT/HCPCS: 96360; 96361; 96372; J2505; J7030

== ENCOUNTER 2017-09-19 07:31 | Day surgery (SDC) | payer OTHER, MEDICARE ==
[2017-09-19] MEDS ORDERED: ACETAMINOPHEN 325 MG TABLET (FP) PO ONE (08:00)
[2017-09-19] MEDS ORDERED: [UNRECOGNIZED DRUG - OTHER] IVPB ONE (08:00)
[2017-09-19] MEDS ORDERED: DIPHENHYDRAMINE IVPB ONE (08:00)
[2017-09-19] MEDS ORDERED: DEXAMETHASONE IVPB ONE (08:00)
[2017-09-19] MEDS ORDERED: ONDANSETRON IVPB ONE (08:00)
[2017-09-19] MEDS ORDERED: RITUXIMAB IVPB ONE (08:30)
[2017-09-19] MEDS ORDERED: SODIUM CHLORIDE IVPB ONE ×2 (08:30→11:30)
[2017-09-19 10:11] LABS: BASO % 0.7 % (0-2.0); EOS % 1.1 % (0-4.5); HEMATOCRIT 35.6 % (32.4-45.2); HEMOGLOBIN 12.3 GM/dL (10.7-15.3); LYMPH % 5.8 % (8-40); MCH 29.5 pg (25.7-33.7); MCHC 34.5 g/dl (32.0-36.0); MEAN CELL VOLUME 85.6 fl (80-96); MEAN PLT VOLUME 7.3 fl (7.5-11.1); MONO % 4.6 % (3.8-10.2); NEUT % 87.8 % (42.8-82.8); PLATELET COUNT 229 K/MM3 (134-434); RBC 4.17 M/mm3 (3.60-5.2); RDW 15.6 % (11.6-15.6); WHITE BLOOD COUNT 8.9 K/mm3 (4.0-10.0)
[2017-09-19 10:29] LABS: ALBUMIN 3.7 g/dl (3.4-5.0); ANION GAP 6 (8-16); BILIRUBIN,DIRECT < 0.2 mg/dL (0.0-0.2); BLOOD UREA NITROGEN 21 mg/dL (7-18); CALCIUM 8.9 mg/dL (8.5-10.1); CHLORIDE 109 mmol/L (98-107); CO2 26 mmol/L (21-32); CREATININE 0.9 mg/dL (0.55-1.02); GLUCOSE,RANDOM 114 mg/dL (74-106); MAGNESIUM 2.1 mg/dL (1.8-2.4); POTASSIUM 4.2 mmol/L (3.5-5.1); SGOT/AST 14 U/L (15-37); SGPT/ALT 16 U/L (12-78); SODIUM 141 mmol/L (136-145)
[2017-09-19 10:32] LABS: ALK PHOS 91 U/L (45-117); BILIRUBIN,TOTAL 0.3 mg/dL (0.2-1.0)
[2017-09-19] MEDS ORDERED: SODIUM CHLORIDE 500 ML IV SCH (11:00)
[2017-09-19] MEDS ORDERED: ACETAMINOPHEN 325 MG TABLET (FP) ONE (11:27)
[2017-09-19] MEDS ORDERED: CYCLOPHOSPHAMIDE IVPB ONE (11:30)
[2017-09-19] MEDS ORDERED: SODIUM CHLORIDE IV ONE (12:00)
[2017-09-19] MEDS ORDERED: DOXORUBICIN HCL IV ONE (12:00)
[2017-09-19] MEDS ORDERED: vinCRIStine SULFATE 1 MG in SODIUM CHLORIDE 50 ML IVPB ONE (12:15)
[2017-09-19 18:23] VITALS: BP 114/75; PULSE 78
[2017-09-19 18:27] VITALS: TEMP 97.9
== END 2017-09-19 18:30 | disposition home or self-care (01) ==
LOC: JONCCHEMO 07:31 → J7W 10:43 → JONCCHEMO 18:30
PROVIDERS: ATTEND Internal Medicine Hematology & Oncology
DX: Z51.11 Encounter for antineoplastic chemotherapy (principal); C83.30 Diffuse large B-cell lymphoma, unspecified site
CPT/HCPCS: 36415; 80053; 80076; 83735; 85025; 96361; 96367; 96375; 96413; 96415; 96417; J1100; J2405; J7030; J9070; J9310; J9370

== ENCOUNTER 2017-09-20 07:38 | Day surgery (SDC) | payer OTHER, MEDICARE ==
[2017-09-20] MEDS ORDERED: PEGFILGRASTIM 6 MG/0.6 ML DISP.SYRIN SQ ONE (08:00)
[2017-09-20] MEDS ORDERED: SODIUM CHLORIDE 250 ML IV ONE (11:00)
[2017-09-20 13:32] VITALS: TEMP 97.2
[2017-09-20] MEDS ORDERED: PORTA CATH FLUSH 10 ML IVPUSH ONE (13:32)
[2017-09-20 13:34] VITALS: BP 118/72; PULSE 64
== END 2017-09-20 12:00 | disposition home or self-care (01) ==
LOC: JONCCHEMO 07:38 → J7W 10:02 → JONCCHEMO 12:00
PROVIDERS: ATTEND Internal Medicine Hematology & Oncology
PROC: 3E013GC Introduction of Other Therapeutic Substance into Subcutaneous Tissue, Percutaneous Approach (ICD-10-PCS; principal; 2017-09-20)
DX: C83.30 Diffuse large B-cell lymphoma, unspecified site (principal); Z76.89 Persons encountering health services in other specified circumstances
CPT/HCPCS: 96360; 96361; 96372; J2505

== ENCOUNTER 2017-10-10 07:30 | Day surgery (SDC) | payer OTHER, MEDICARE ==
[2017-10-10 09:30] VITALS: TEMP 97.5
[2017-10-10 09:43] LABS: BASO % 0.7 % (0-2.0); EOS % 1.1 % (0-4.5); HEMATOCRIT 38.1 % (32.4-45.2); HEMOGLOBIN 12.9 GM/dL (10.7-15.3); LYMPH % 5.7 % (8-40); MCH 29.5 pg (25.7-33.7); MCHC 33.7 g/dl (32.0-36.0); MEAN CELL VOLUME 87.5 fl (80-96); MONO % 6.6 % (3.8-10.2); NEUT % 85.9 % (42.8-82.8); PLATELET COUNT 187 K/MM3 (134-434); RBC 4.36 M/mm3 (3.60-5.2); RDW 18.6 % (11.6-15.6); WHITE BLOOD COUNT 9.2 K/mm3 (4.0-10.0)
[2017-10-10] MEDS ORDERED: DEXAMETHASONE IVPB ONE (10:00)
[2017-10-10] MEDS ORDERED: DIPHENHYDRAMINE IVPB ONE (10:00)
[2017-10-10] MEDS ORDERED: ONDANSETRON IVPB ONE (10:00)
[2017-10-10] MEDS ORDERED: ACETAMINOPHEN 325 MG TABLET (FP) PO ONE (10:00)
[2017-10-10] MEDS ORDERED: [UNRECOGNIZED DRUG - OTHER] IVPB ONE (10:00)
[2017-10-10 10:15] LABS: ALBUMIN 3.8 g/dl (3.4-5.0); ANION GAP 3 (8-16); BILIRUBIN,TOTAL 0.4 mg/dL (0.2-1.0); BLOOD UREA NITROGEN 20 mg/dL (7-18); CALCIUM 9.4 mg/dL (8.5-10.1); CHLORIDE 109 mmol/L (98-107); CO2 29 mmol/L (21-32); GLUCOSE,RANDOM 100 mg/dL (74-106); LDH 197 U/L (84-246); POTASSIUM 4.3 mmol/L (3.5-5.1); SGOT/AST 15 U/L (15-37); SGPT/ALT 18 U/L (12-78); SODIUM 141 mmol/L (136-145); TOT PROT 5.9 g/dl (6.4-8.2); URIC ACID 3.6 mg/dL (2.6-7.2)
[2017-10-10 10:16] LABS: ALK PHOS 90 U/L (45-117)
[2017-10-10 10:17] LABS: ALBUMIN 3.8 g/dl (3.4-5.0); ALK PHOS 93 U/L (45-117); BILIRUBIN,DIRECT < 0.2 mg/dL (0.0-0.2); BILIRUBIN,TOTAL 0.4 mg/dL (0.2-1.0); MAGNESIUM 2.3 mg/dL (1.8-2.4); SGOT/AST 15 U/L (15-37); SGPT/ALT 17 U/L (12-78); TOT PROT 5.9 g/dl (6.4-8.2)
[2017-10-10] MEDS ORDERED: SODIUM CHLORIDE IVPB ONE ×3 (10:30→15:00)
[2017-10-10] MEDS ORDERED: RITUXIMAB IVPB ONE (10:30)
[2017-10-10] MEDS ORDERED: PORTA CATH FLUSH 10 ML IVPUSH ONE (12:17)
[2017-10-10] MEDS ORDERED: CYCLOPHOSPHAMIDE IVPB ONE (14:00)
[2017-10-10] MEDS ORDERED: DOXORUBICIN HCL IV ONE (14:30)
[2017-10-10] MEDS ORDERED: SODIUM CHLORIDE IV ONE (14:30)
[2017-10-10] MEDS ORDERED: VINCRISTINE SULFATE IVPB ONE (15:00)
[2017-10-10] MEDS ORDERED: SODIUM CHLORIDE 250 ML IV STA (15:24)
[2017-10-10 17:52] VITALS: BP 114/64; PULSE 66
== END 2017-10-10 16:40 | disposition home or self-care (01) ==
LOC: JONCCHEMO 07:30 → J7W 10:38 → JONCCHEMO 16:40
PROVIDERS: ATTEND Internal Medicine Hematology & Oncology
DX: Z51.11 Encounter for antineoplastic chemotherapy (principal); C83.30 Diffuse large B-cell lymphoma, unspecified site
CPT/HCPCS: 36415; 80053; 80076; 83615; 83735; 84550; 85025; 96361; 96367; 96375; 96413; 96415; 96417; J1100; J7030; J9070; J9310; J9370

== ENCOUNTER 2017-10-11 07:29 | Day surgery (SDC) | payer OTHER, MEDICARE ==
[2017-10-11] MEDS ORDERED: PEGFILGRASTIM 6 MG/0.6 ML DISP.SYRIN SQ ONE (10:00)
[2017-10-11] MEDS ORDERED: D5-1/2NS+20 MEQ KCL - 20 MEQ/1,000 ML INFUS.BAG IV SCH (13:45)
[2017-10-11 15:57] VITALS: BP 110/65; PULSE 68; TEMP 97.5
== END 2017-10-11 16:00 | disposition home or self-care (01) ==
LOC: JONCCHEMO 07:29 → J7W 13:23 → JONCCHEMO 16:00
PROVIDERS: ATTEND Internal Medicine Hematology & Oncology
PROC: 3E013GC Introduction of Other Therapeutic Substance into Subcutaneous Tissue, Percutaneous Approach (ICD-10-PCS; principal; 2017-10-11)
PROC: 3E0437Z Introduction of Electrolytic and Water Balance Substance into Central Vein, Percutaneous Approach (ICD-10-PCS; 2017-10-11)
DX: C83.30 Diffuse large B-cell lymphoma, unspecified site (principal); Z76.89 Persons encountering health services in other specified circumstances
CPT/HCPCS: 96360; 96361; 96372; J2505

== ENCOUNTER 2018-02-01 12:28 | Day surgery (SDC) | payer OTHER, MEDICARE ==
[2018-02-01] MEDS ORDERED: D5-NS + 20 MEQ KCL - 20 MEQ/1,000 ML INFUS.BAG IV SCH (14:15)
[2018-02-01] MEDS ORDERED: POTASSIUM CHLORIDE 20 MEQ in DEXTROSE 5%-NORMAL SALINE 500 ML IVPB ONE (14:30)
[2018-02-01] MEDS ORDERED: NORMAL SALINE IVPB SCH (14:45)
[2018-02-01] MEDS ORDERED: DEXTROSE 5% IVPB SCH (14:45)
[2018-02-01] MEDS ORDERED: POTASSIUM CHLORIDE IVPB SCH (14:45)
[2018-02-01 17:12] VITALS: TEMP 98.1
[2018-02-01] MEDS ORDERED: PORTA CATH FLUSH 10 ML IVPUSH ONE (17:13)
[2018-02-01 17:16] VITALS: BP 140/76; PULSE 71
== END 2018-02-01 17:15 | disposition home or self-care (01) ==
LOC: JONCNONCHE 12:28 → J7W 13:54 → JONCNONCHE 17:15
PROVIDERS: ATTEND Internal Medicine Hematology & Oncology
PROC: 3E0437Z Introduction of Electrolytic and Water Balance Substance into Central Vein, Percutaneous Approach (ICD-10-PCS; principal; 2018-02-01)
DX: C83.30 Diffuse large B-cell lymphoma, unspecified site (principal); Z76.89 Persons encountering health services in other specified circumstances
CPT/HCPCS: 36415; 80053; 83735; 85025; 96360; 96361

== ENCOUNTER 2018-02-15 07:33 | Day surgery (SDC) | payer OTHER, MEDICARE ==
[2018-02-15] MEDS ORDERED: ACETAMINOPHEN 325 MG TABLET (FP) PO ONE (10:00)
[2018-02-15] MEDS ORDERED: [UNRECOGNIZED DRUG - OTHER] IVPB ONE (10:00)
[2018-02-15] MEDS ORDERED: DIPHENHYDRAMINE IVPB ONE (10:00)
[2018-02-15] MEDS ORDERED: DEXAMETHASONE IVPB ONE (10:00)
[2018-02-15] MEDS ORDERED: ONDANSETRON IVPB ONE (10:00)
[2018-02-15 10:16] VITALS: TEMP 97.8
[2018-02-15] MEDS ORDERED: RITUXIMAB IVPB ONE (10:30)
[2018-02-15] MEDS ORDERED: SODIUM CHLORIDE IVPB ONE ×2 (10:30→13:00)
[2018-02-15 10:50] LABS: BASO % 0.8 % (0-2.0); EOS % 1.2 % (0-4.5); HEMATOCRIT 40.2 % (32.4-45.2); HEMOGLOBIN 13.7 GM/dL (10.7-15.3); LYMPH % 5.5 % (8-40); MCH 30.5 pg (25.7-33.7); MEAN CELL VOLUME 89.8 fl (80-96); MONO % 6.7 % (3.8-10.2); NEUT % 85.8 % (42.8-82.8); PLATELET COUNT 189 K/MM3 (134-434); RBC 4.48 M/mm3 (3.60-5.2); RDW 16.3 % (11.6-15.6); WHITE BLOOD COUNT 9.3 K/mm3 (4.0-10.0)
[2018-02-15 11:17] LABS: ALBUMIN 3.9 g/dl (3.4-5.0); ALK PHOS 103 U/L (45-117); ANION GAP 5 MMOL/L (8-16); BILIRUBIN,TOTAL 0.8 mg/dL (0.2-1.0); BLOOD UREA NITROGEN 21 mg/dL (7-18); CALCIUM 9.2 mg/dL (8.5-10.1); CHLORIDE 108 mmol/L (98-107); CO2 27 mmol/L (21-32); GLUCOSE,RANDOM 92 mg/dL (74-106); POTASSIUM 4.4 mmol/L (3.5-5.1); SGOT/AST 20 U/L (15-37); SGPT/ALT 22 U/L (12-78); SODIUM 140 mmol/L (136-145)
[2018-02-15 11:22] LABS: ALBUMIN 3.8 g/dl (3.4-5.0); ALK PHOS 101 U/L (45-117); BILIRUBIN,DIRECT < 0.2 mg/dL (0.0-0.2); BILIRUBIN,TOTAL 0.6 mg/dL (0.2-1.0); SGPT/ALT 23 U/L (12-78)
[2018-02-15 11:24] LABS: MAGNESIUM 2.2 mg/dL (1.8-2.4); SGOT/AST 23 U/L (15-37)
[2018-02-15] MEDS ORDERED: CYCLOPHOSPHAMIDE IVPB ONE (13:00)
[2018-02-15] MEDS ORDERED: DOXORUBICIN HCL IV ONE (13:30)
[2018-02-15] MEDS ORDERED: SODIUM CHLORIDE IV ONE (13:30)
[2018-02-15] MEDS ORDERED: vinCRIStine SULFATE 1 MG in SODIUM CHLORIDE 50 ML IVPB ONE (14:00)
[2018-02-15] MEDS ORDERED: PORTA CATH FLUSH 10 ML IVPUSH ONE (16:44)
[2018-02-15 17:16] VITALS: BP 115/67; PULSE 80
== END 2018-02-15 17:00 | disposition home or self-care (01) ==
LOC: JONCCHEMO 07:33 → J7W 11:55 → JONCCHEMO 17:00
PROVIDERS: ATTEND Internal Medicine Hematology & Oncology
PROC: 3E04305 Introduction of Other Antineoplastic into Central Vein, Percutaneous Approach (ICD-10-PCS; principal; 2018-02-15)
PROC: 3E043GC Introduction of Other Therapeutic Substance into Central Vein, Percutaneous Approach (ICD-10-PCS; 2018-02-15)
PROC: 3E04305 Introduction of Other Antineoplastic into Central Vein, Percutaneous Approach (ICD-10-PCS; 2018-02-15)
DX: Z51.11 Encounter for antineoplastic chemotherapy (principal); C83.30 Diffuse large B-cell lymphoma, unspecified site
CPT/HCPCS: 36415; 80053; 80076; 83735; 85025; 96367; 96375; 96409; 96411; 96413; 96415; 96417; J1100; J9070; J9310; J9370

== ENCOUNTER 2018-02-16 07:29 | Day surgery (SDC) | payer OTHER, MEDICARE ==
[2018-02-16] MEDS ORDERED: PEGFILGRASTIM 6 MG/0.6 ML DISP.SYRIN SQ ONE (10:00)
[2018-02-16] MEDS ORDERED: SODIUM CHLORIDE 1,000 ML IV ONE (11:45)
[2018-02-16 14:10] VITALS: TEMP 97.8
[2018-02-16] MEDS ORDERED: PORTA CATH FLUSH 10 ML IVPUSH ONE (14:10)
[2018-02-16 16:03] VITALS: BP 120/64; PULSE 60
== END 2018-02-16 15:30 | disposition home or self-care (01) ==
LOC: JONCCHEMO 07:29 → J7W 11:06 → JONCCHEMO 15:30
PROVIDERS: ATTEND Internal Medicine Hematology & Oncology
PROC: 3E043GC Introduction of Other Therapeutic Substance into Central Vein, Percutaneous Approach (ICD-10-PCS; principal; 2018-02-16)
PROC: 3E013GC Introduction of Other Therapeutic Substance into Subcutaneous Tissue, Percutaneous Approach (ICD-10-PCS; 2018-02-16)
DX: Z76.89 Persons encountering health services in other specified circumstances (principal); C83.30 Diffuse large B-cell lymphoma, unspecified site
CPT/HCPCS: 96360; 96361; 96372; J2505; J7030

== ENCOUNTER 2018-03-08 12:23 | Inpatient (IN) | payer OTHER, MEDICARE ==
--- NOTE | 2018-03-08 12:25 | PDOC ---
History of Present Illness - History of Present Illness Initial Comments: 03/08/18 12:26 Ms. Hubbard is an 82 yo female w/ pmh of COPD, non-hodgkins lymphoma who presents on direction of oncologist (Dr. Davison) for evaluation of 3 day history of LLE pain. Patient localizes it to her calf region and says she has had difficulty walking. Of note, patient has recently finished 10 day course of levoquin which patient was taking prophylactically for cough. Patient also complaining of left sided jaw pain upon opening her mouth for the last two days. Localizes the pain to the head of the mandible. The patient denies chest pain, shortness of breath, headache and dizziness. Denies fever, chills, nausea, vomit, diarrhea and constipation. Denies dysuria, frequency, urgency and hematuria. Allergies: NKDA <Teo Vazquez - Last Filed: 03/08/18 15:51> <Dixie Dow - Last Filed: 03/10/18 07:30> - General Stated Complaint: PCP SENT Time Seen by Provider: 03/08/18 12:25 Past History - Past Medical History Anemia: No Asthma: No Cancer: No Cardiac Disorders: No CVA: No COPD: No CHF: No Dementia: No Diabetes: No GI Disorders: Yes (DIVERTICULITIS) Disorders: No HTN: No Hypercholesterolemia: No Liver Disease: No Seizures: No Thyroid Disease: No - Surgical History Abdominal Surgery: No Appendectomy: No Cardiac Surgery: No Cholecystectomy: No Lung Surgery: No Neurologic Surgery: No Orthopedic Surgery: No - Suicide/Smoking/Psychosocial Hx Smoking History: Former smoker Have you smoked in the past 12 months: No If you are a former smoker, when did you quit?: 60 YRS AGO Hx Alcohol Use: No Drug/Substance Use Hx: No Substance Use Type: None Hx Substance Use Treatment: No <Teo Vazquez - Last Filed: 03/08/18 15:51> <Dixie Dow - Last Filed: 03/10/18 07:30> - Past Medical History Allergies/Adverse Reactions: Allergies Allergy/AdvReac Type Severity Reaction Status Date / Time No Known Allergies Allergy Verified 03/08/18 12:30 Home Medications: Ambulatory Orders L.acidoph,Paracasei, B.lactis [Probiotic] 1 each PO HS 04/11/17 Polyethylene Glycol 3350 [Miralax 119 gm Btl -] 17 gm PO DAILY PRN 04/11/17 Aspirin [Aspirin EC] 81 mg PO DAILY 06/26/17 Acetaminophen [Tylenol .Regular Strength -] 650 mg PO Q6H PRN tablet 07/14/17 Allopurinol 300 mg PO DAILY 12/11/17 Bimatoprost [Lumigan] 1 drop OU HS 12/11/17 Review of Systems - Review of Systems Able to Perform ROS?: Yes Comments:: 03/08/18 12:28 GENERAL/CONSTITUTIONAL: No fever or chills. No weakness. HEAD, EYES, EARS, NOSE AND THROAT: +Left sided jap pain at mandible head. No change in vision. No ear pain or discharge. No sore throat. CARDIOVASCULAR: No chest pain or shortness of breath RESPIRATORY: +Prior cough (now resolved after levoquin), no wheezing, or hemoptysis. GASTROINTESTINAL: No nausea, vomiting, diarrhea or constipation. GENITOURINARY: No dysuria, frequency, or change in urination. MUSCULOSKELETAL: +MSK pain as described. SKIN: No rash NEUROLOGIC: No headache, vertigo, loss of consciousness, or change in strength/ sensation. ENDOCRINE: No increased thirst. No abnormal weight change HEMATOLOGIC/LYMPHATIC: No anemia, easy bleeding, or history of blood clots. ALLERGIC/IMMUNOLOGIC: No hives or skin allergy. <Teo Vazquez - Last Filed: 03/08/18 15:51> *Physical Exam - Physical Exam Comments: 03/08/18 12:28 GENERAL: Awake, alert, and fully oriented, in no acute distress HEAD: No signs of trauma, normocephalic, atraumatic EYES: PERRLA, EOMI, sclera anicteric, conjunctiva clear ENT: Auricles normal inspection, hearing grossly normal, nares patent, oropharynx clear without exudates. Moist mucosa NECK: Normal ROM, supple, no lymphadenopathy, JVD, or masses LUNGS: No distress, speaks full sentences, clear to auscultation bilaterally HEART: Regular rate and rhythm, normal S1 and S2, no murmurs, rubs or gallops, peripheral pulses normal and equal bilaterally. ABDOMEN: Soft, nontender, normoactive bowel sounds. No guarding, no rebound. No masses EXTREMITIES: +TTP of soft tissue of left calf. Otherwise normal inspection, Normal range of motion, no edema. No clubbing or cyanosis. NEUROLOGICAL: Cranial nerves II through XII grossly intact. Normal speech, normal gait, no focal sensorimotor deficits SKIN: Warm, Dry, normal turgor, no rashes or lesions noted. <Teo Vazquez - Last Filed: 03/08/18 15:51> - Vital Signs Last Vital Signs Temp Pulse Resp BP Pulse Ox 97.6 F 75 20 124/59 L 99 03/10/18 05:15 03/10/18 05:15 03/10/18 05:15 03/10/18 05:15 03/09/18 21:00 <Dixie Dow - Last Filed: 03/10/18 07:30> ED Treatment Course - LABORATORY CBC & Chemistry Diagram: 03/08/18 13:40 03/08/18 13:40 <Teo Vazquez - Last Filed: 03/08/18 15:51> - LABORATORY CBC & Chemistry Diagram: 03/10/18 06:00 03/09/18 06:30 - ADDITIONAL ORDERS Additional order review: 03/08/18 13:40 RBC 4.55 MCV 91.4 MCHC 33.5 RDW 17.4 H MPV 7.6 Neutrophils % 88.3 H Lymphocytes % 4.5 L Monocytes % 5.4 Eosinophils % 1.3 Basophils % 0.5 - Medications Given in the ED: ED Medications Discontinued Medications Generic Name Dose Route Start Last Admin Trade Name Freq PRN Reason Stop Dose Admin Sodium Chloride 1,000 mls @ 50 mls/hr 03/08/18 19:00 03/09/18 22:13 Normal Saline - IV 03/09/18 18:59 50 mls/hr ASDIR ADRIÁN Administration Influenza Virus Vaccine Quadrival 60 mcg 03/09/18 10:00 03/09/18 10:48 Flulaval Quad [id number] IM 03/09/18 10:01 Not Given .ONCE ONE Pneumococcal 13-Valent Conj Vacc 0.5 ml 03/09/18 09:00 03/09/18 10:49 Prevnar 13 Syringe - IM 03/09/18 09:01 Not Given .ONCE ONE <Dixie Dow - Last Filed: 03/10/18 07:30> Medical Decision Making - Medical Decision Making 03/08/18 13:34 Ms. Hubbard is an 82 yo female w/ pmh as described who presents for evaluation of left calf pain concerning for tendon rupture vs. pathological fracture vs. dvt. Patient evaluated with bedside US and found to be negative for tendon rupture or DVT. Formal study pending. Will continue workup and likely admit. 03/08/18 14:06 Discussed patient w/ Drs. Davison and Ese; given patient's complicated medical status and unknown cause of pain w/ inability to ambulate, will admit for specialist follow-up and further management. Labs grossly wnl as below. Admitting to Dr. Mulligan. Laboratory Results - last 24 hr 03/08/18 03/08/18 13:40 13:40 WBC 10.0 RBC 4.55 Hgb 13.9 Hct 41.6 MCV 91.4 MCH 30.6 MCHC 33.5 RDW 17.4 H Plt Count 164 MPV 7.6 Absolute Neuts (auto) 8.8 H Neutrophils % 88.3 H Lymphocytes % 4.5 L Monocytes % 5.4 Eosinophils % 1.3 Basophils % 0.5 Nucleated RBC % 0 Sodium 142 Potassium 3.8 Chloride 109 H Carbon Dioxide 28 Anion Gap 6 L BUN 17 Creatinine 1.0 Creat Clearance w eGFR 52.95 Random Glucose 100 Calcium 10.3 H Total Bilirubin 0.8 AST 17 ALT 18 Alkaline Phosphatase 113 Total Protein 6.5 Albumin 4.3 <Teo Vazquez - Last Filed: 03/08/18 15:51> *DC/Admit/Observation/Transfer - Discharge Dispostion Decision to Admit order: Yes <Teo Vazquez - Last Filed: 03/08/18 15:51> - Discharge Dispostion Decision to Admit order: Yes Decision to Admit order Date/Time: 03/10/18 07:30 <Dixie Dow - Last Filed: 03/10/18 07:30> Diagnosis at time of Disposition: Lower extremity pain, left, Difficulty walking - Discharge Dispostion Condition at time of disposition: Guarded
[2018-03-08 13:52] LABS: BASO % 0.5 % (0-2.0); EOS % 1.3 % (0-4.5); HEMATOCRIT 41.6 % (32.4-45.2); HEMOGLOBIN 13.9 GM/dL (10.7-15.3); LYMPH % 4.5 % (8-40); MCH 30.6 pg (25.7-33.7); MCHC 33.5 g/dl (32.0-36.0); MEAN CELL VOLUME 91.4 fl (80-96); MEAN PLT VOLUME 7.6 fl (7.5-11.1); MONO % 5.4 % (3.8-10.2); NEUT % 88.3 % (42.8-82.8); PLATELET COUNT 164 K/MM3 (134-434); RBC 4.55 M/mm3 (3.60-5.2); RDW 17.4 % (11.6-15.6)
--- NOTE | 2018-03-08 14:06 | PDOC ---
Attending Attestation - Resident Resident Name: Teo Vazquez - ED Attending Attestation I have performed the following: I have examined & evaluated the patient, The case was reviewed & discussed with the resident, I agree w/resident's findings & plan - HPI HPI: 03/08/18 16:33 Ms. Hubbard is an 82 yo female w/ pmh of COPD, non-hodgkins lymphoma on chemo who presents on direction of oncologist (Dr. Davison) for evaluation of 3 day history of LLE pain. recently finished 10 day course of Levaquin for respiratory infection. c/o left calf pain, denies trauma. also c/o left jaw pain, worse with mastication but denies trauma or trismus. no fever or chills no weakness or paresthesias or signs of infection 03/08/18 16:34 - Physicial Exam PE: 03/08/18 16:34 NAD, well appearing, MMM, nl conjunctiva, anicteric; neck supple. lungs clear, RRR, abdomen soft nontender. BOOTH x4, no focal neuro deficits. No peripheral edema. normal color for ethnicity, WWP. +left calf tenderness, no edema. no joint laxity. achilles tendon in tact. bhatt's test normal - Medical Decision Making 03/08/18 16:35 Ms. Hubbard is an 82 yo female w/ pmh of COPD, non-hodgkins lymphoma on chemo who presents on direction of oncologist (Dr. Davison) for evaluation of 3 day history of LLE pain and jaw pain, s/p levaquin vitals wnl DDx. tendinopathy, med side effect, DVT, path fx. msk strain. difficulty ambulating, will need PT labs and lytes wnl bedside sono of LLE with neg DVT with compressible vessels from GSV to the popliteal vein and trifurcation., confirmed with radiologic US. bedside msk sono also with normal appearing achilles tendon with good dynamic evaluation and intactness. nonemergent ortho/ent and neuro cs per Dr Davison admit to medicine, Dr. Mulligan for further medical management.
[2018-03-08 14:31] LABS: ALBUMIN 4.3 g/dl (3.4-5.0); ALK PHOS 113 U/L (45-117); ANION GAP 6 MMOL/L (8-16); BILIRUBIN,TOTAL 0.8 mg/dL (0.2-1); BLOOD UREA NITROGEN 17 mg/dL (7-18); CALCIUM 10.3 mg/dL (8.5-10.1); CHLORIDE 109 mmol/L (98-107); CO2 28 mmol/L (21-32); GLUCOSE,RANDOM 100 mg/dL (74-106); POTASSIUM 3.8 mmol/L (3.5-5.1); SGOT/AST 17 U/L (15-37); SGPT/ALT 18 U/L (13-61); SODIUM 142 mmol/L (136-145); TOT PROT 6.5 g/dl (6.4-8.2)
[2018-03-08] MEDS ORDERED: ACETAMINOPHEN 325 MG TABLET (FP) PO PRN (15:34)
[2018-03-08] MEDS ORDERED: SODIUM CHLORIDE 1,000 ML IV SCH (19:00)
--- NOTE | 2018-03-08 19:17 | CONSULT ---
Consult - text type - Consultation Consultation Note: NEUROLOGY CONSULTATION is greatly appreciated: This 82 yo LH woman lives with her [id number], Jeannette. PMH is sig for Non-Hodgekins Lymphoma with ongoing chemoRx. COPD and multiple pulmonary nodules and recurrent episodes of bronchitis/ pneumonia. Maintained on: Probiotic; Miralax; Aspirin 81; Acetaminophen; Allopurinol; and Bimatoprost gtts. 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 MRI of Brain (11/02/17): mild, diffuse atrophy and scattered microvascular changes and lacunar infarcts. Was twice given donepezil but never started. Was here for chemoRx but c/o left jaw angle pain with eating and left calf pain with walking. LISANDRA: No bruits. Cor reg. Neg SLR. distal pulses +/+. Normal jaw excursion with clicking left TMJ Neg swelling. Neg Laura's NEURO: Awake, alert, cooperative. Ox 3. Recalls 1 of 3 at 3 mins. Speech: Fluent CN II-XII: Normal Motor: No drift or tremor. Normal strength. Decreased left AJ. Toes downgoing Coord: No FTN dystaxia Sensory: Normal IMP: 1. Mild-Mod B/L cerebral dysfunction (OMS, probably early Alzheimers) 2. Left leg claudication. R/O arterial insufficiency. R/O LS Spinal stenosis 3. Left TMJ SUGGEST: Arterial dopplers of legs prior to D/C. If + Vascular surgical consultation MRI of LS spine (can be done on out patient basis if desired). Neuro F/U as out patient for EMG/NCS of legs and organization of MRI. Thank you very much, Christopher Shoemaker MD
--- NOTE | 2018-03-08 21:26 | CONSULT ---
Consult - text type - Consultation Consultation Note: Ms. Hubbard is an 82 yo female w/ pmh of COPD, non-hodgkins lymphoma who presents for evaluation of 3 day history of LLE pain. Patient localizes it to her calf region and says she has had difficulty walking. Of note, patient has recently finished 10 day course of levaquin which patient was taking for bronchitis. Patient also complaining of left sided jaw pain upon opening her mouth for the last two days. Localizes the pain to the head of the mandible. The patient denies chest pain, shortness of breath, headache and dizziness. Denies fever, chills, nausea, vomit, diarrhea and constipation. Denies dysuria, frequency, urgency and hematuria. Allergies: NKDA Past History HTN Diffuse large B cell lymphoma Allergies/Adverse Reactions: Allergies Allergy/AdvReac Type Severity Reaction Status Date / Time No Known Allergies Allergy Verified 03/08/18 12:30 Home Medications: Ambulatory Orders L.acidoph,Paracasei, B.lactis [Probiotic] 1 each PO HS 04/11/17 Polyethylene Glycol 3350 [Miralax 119 gm Btl -] 17 gm PO DAILY PRN 04/11/17 Aspirin [Aspirin EC] 81 mg PO DAILY 06/26/17 Acetaminophen [Tylenol .Regular Strength -] 650 mg PO Q6H PRN tablet 07/14/17 Allopurinol 300 mg PO DAILY 12/11/17 Bimatoprost [Lumigan] 1 drop OU HS 12/11/17 PMH GI Disorders: Yes (DIVERTICULITIS) - Suicide/Smoking/Psychosocial Hx Smoking History: Former smoker Last Vital Signs Temp Pulse Resp BP Pulse Ox 97.6 F 75 20 128/67 99 03/08/18 21:00 03/08/18 21:00 03/08/18 21:00 03/08/18 21:00 03/08/18 21:00 GENERAL: Awake, alert, and fully oriented, in no acute distress NECK: Normal ROM, supple, no lymphadenopathy, JVD, or masses LUNGS: No distress, speaks full sentences, clear to auscultation bilaterally HEART: Regular rate and rhythm, normal S1 and S2, no murmurs, rubs or gallops, peripheral pulses normal and equal bilaterally. ABDOMEN: Soft, nontender, normoactive bowel sounds EXTREMITIES: +TTP of soft tissue of left calf. Otherwise normal inspection, Normal range of motion, no edema. No clubbing or cyanosis. NEUROLOGICAL: Cranial nerves II through XII grossly intact. Normal speech, normal gait, no focal sensorimotor deficits ED Treatment Course - LABORATORY CBC & Chemistry Diagram: 03/08/18 13:40 03/08/18 13:40 03/08/18 03/08/18 13:40 13:40 WBC 10.0 RBC 4.55 Hgb 13.9 Hct 41.6 MCV 91.4 MCH 30.6 MCHC 33.5 RDW 17.4 H Plt Count 164 MPV 7.6 Absolute Neuts (auto) 8.8 H Neutrophils % 88.3 H Lymphocytes % 4.5 L Monocytes % 5.4 Eosinophils % 1.3 Basophils % 0.5 Nucleated RBC % 0 Sodium 142 Potassium 3.8 Chloride 109 H Carbon Dioxide 28 Anion Gap 6 L BUN 17 Creatinine 1.0 Creat Clearance w eGFR 52.95 Random Glucose 100 Calcium 10.3 H Total Bilirubin 0.8 AST 17 ALT 18 Alkaline Phosphatase 113 Total Protein 6.5 Albumin 4.3 A/P Ms. Hubbard is an 82 yo female w/ pmh of COPD, non-hodgkins lymphoma/DLBCL who presents for evaluation of 3 day history of LLE pain. Patient localizes it to her calf region and says she has had difficulty walking. Of note, patient has recently finished 10 day course of levaquin which patient was taking for bronchitis. Patient also complaining of left sided jaw pain upon opening her mouth for the last two days. Localizes the pain to the head of the mandible. Concern for tendonitis due to levaquin ? achillest tendon normal on U/S but ? gastrocnemius/soleal involvement TMJ tendonitis? will request ENT/Ortho/Neuro consults MRI LEft leg/TMJ Duplex negative Due for C6 RCHOP will follow
[2018-03-08] MEDS: HEPARIN NA (PORCINE) 5,000 UNITS/ML 1ML VIAL SQ SCH (21:52)
[2018-03-08 23:40] VITALS: BMI 24.8
[2018-03-09 07:54] LABS: ALBUMIN 3.4 g/dl (3.4-5.0); ALK PHOS 93 U/L (45-117); ANION GAP 9 MMOL/L (8-16); BILIRUBIN,TOTAL 0.6 mg/dL (0.2-1); BLOOD UREA NITROGEN 19 mg/dL (7-18); CALCIUM 9.2 mg/dL (8.5-10.1); CHLORIDE 110 mmol/L (98-107); CO2 23 mmol/L (21-32); CREATININE 0.7 mg/dL (0.55-1.3); GLUCOSE,RANDOM 105 mg/dL (74-106); SGOT/AST 14 U/L (15-37); SGPT/ALT 15 U/L (13-61); SODIUM 142 mmol/L (136-145); TOT PROT 5.3 g/dl (6.4-8.2)
--- NOTE | 2018-03-09 08:06 | EKG ---
Test Reason : Blood Pressure : / mmHG Vent. Rate : 068 BPM Atrial Rate : 068 BPM P-R Int : 144 ms QRS Dur : 072 ms QT Int : 390 ms P-R-T Axes : 070 045 046 degrees QTc Int : 414 ms NORMAL SINUS RHYTHM POSSIBLE LEFT ATRIAL ENLARGEMENT BORDERLINE ECG WHEN COMPARED WITH ECG OF 08-DEC-2017 10:58, ST ELEVATION NOW PRESENT IN INFERIOR LEADS Confirmed by WILMER DA SILVA, JAMESON ([id number]) on 03/09/2018 8:06:20 AM Referred By: Confirmed By:JAMESON GUILLEN MD
--- NOTE | 2018-03-09 08:25 | CON.ORTH ---
Consult Reason for Consultation:: left calf pain - Past Medical History Pulmonary: Yes: COPD ...: No - Past Surgical History Past Surgical History: Yes: Appendectomy - Alcohol/Substance Use Hx Alcohol Use: No History of Substance Use: reports: None - Smoking History Smoking history: Former smoker Have you smoked in the past 12 months: No If you are a former smoker, when did you quit?: 60 YRS AGO - Social History Usual Living Arrangement: Alone () Home Medications - Allergies Allergies/Adverse Reactions: Allergies Allergy/AdvReac Type Severity Reaction Status Date / Time No Known Allergies Allergy Verified 03/08/18 12:30 - Home Medications Home Medications: Ambulatory Orders L.acidoph,Paracasei, B.lactis [Probiotic] 1 each PO HS 04/11/17 Polyethylene Glycol 3350 [Miralax 119 gm Btl -] 17 gm PO DAILY PRN 04/11/17 Aspirin [Aspirin EC] 81 mg PO DAILY 06/26/17 Acetaminophen [Tylenol .Regular Strength -] 650 mg PO Q6H PRN tablet 07/14/17 Allopurinol 300 mg PO DAILY 12/11/17 Bimatoprost [Lumigan] 1 drop OU HS 12/11/17 Physical Exam for Ortho Vital Signs: Vital Signs Temperature 97.9 F 03/09/18 06:00 Pulse Rate 75 03/09/18 06:00 Respiratory Rate 20 03/09/18 06:00 Blood Pressure 105/58 03/09/18 06:00 O2 Sat by Pulse Oximetry (%) 99 03/08/18 21:00 Labs: CBC, BMP 03/09/18 06:30 - Lower Extremity Leg: Yes: Left, Other (no swelling, erythema/ecchymosis, mild ttp over gastroc muscle belly, achilles tendon intact, full rom of knee and ankle, nvi) Assessment/Plan 82 yo female w/ pmh of COPD, non-hodgkins lymphoma who presents on direction of oncologist (Dr. Davison) for evaluation of 3 day history of LLE pain. Patient localizes it to her calf region and says she has had difficulty walking. Of note , patient has recently finished 10 day course of levoquin which patient was taking prophylactically for cough. Denies any injury or trauma. a/p Left LE pain- gastroc strain vs occult pathology MRI pending PT eval, wbat will advise further after MRI d/w Dr. López
[2018-03-09] MEDS ORDERED: PNEUMOC 13-VAL CONJ-DIP CRM/PF 0.5 ML DISP.SYRIN IM ONE (09:00)
[2018-03-09] MEDS ORDERED: FLU VACCINE QUAD 60 MCG/0.5 ML (MDV 18-19) IM ONE (10:00)
[2018-03-09] MEDS: METHYL SALICYLATE/MENTHOL OINT 30 GM TUBE TP SCH (10:41)
[2018-03-09] MEDS: ALLOPURINOL 300 MG TABLET (FP) PO SCH (10:41)
[2018-03-09] MEDS: HEPARIN NA (PORCINE) 5,000 UNITS/ML 1ML VIAL SQ SCH ×2 (10:41→22:13)
[2018-03-09] MEDS: POLYETHYLENE GLYCOL 3350 119 GM BTL PO SCH (10:49)
[2018-03-09 12:00] LABS: HEMATOCRIT 36.4 % (32.4-45.2); HEMOGLOBIN 12.1 GM/dL (10.7-15.3); MCH 30.3 pg (25.7-33.7); MCHC 33.3 g/dl (32.0-36.0); MEAN PLT VOLUME 8.7 fl (7.5-11.1); PLATELET COUNT 139 K/MM3 (134-434); RDW 17.6 % (11.6-15.6); WHITE BLOOD COUNT 6.8 K/mm3 (4.0-10.0)
--- NOTE | 2018-03-09 12:35 | HP ---
Admitting History and Physical - Admission Chief Complaint: left leg pain History of Present Illness: Ms. Hubbard is an 82 yo female w/ pmh of COPD, non-hodgkins lymphoma on chemo who presents on direction of oncologist (Dr. Davison) for evaluation of 3 day history of LLE pain. recently finished 10 day course of Levaquin for respiratory infection. c/o left calf pain, denies trauma. also c/o left jaw pain, worse with mastication but denies trauma or trismus. no fever or chills no weakness or paresthesias or signs of infection per patient pain is aggrevated when she climbs up the stairs patient seen by ortho - Past Medical History Pulmonary: Yes: COPD ...: No Heme/Onc: Yes: Other (non hogkins lymphoma) - Past Surgical History Past Surgical History: Yes: Appendectomy - Smoking History Smoking history: Former smoker Have you smoked in the past 12 months: No If you are a former smoker, when did you quit?: 60 YRS AGO - Alcohol/Substance Use Hx Alcohol Use: No History of Substance Use: reports: None Home Medications - Allergies Allergies/Adverse Reactions: Allergies Allergy/AdvReac Type Severity Reaction Status Date / Time No Known Allergies Allergy Verified 03/08/18 12:30 - Home Medications Home Medications: Ambulatory Orders L.acidoph,Paracasei, B.lactis [Probiotic] 1 each PO HS 04/11/17 Polyethylene Glycol 3350 [Miralax 119 gm Btl -] 17 gm PO DAILY PRN 04/11/17 Aspirin [Aspirin EC] 81 mg PO DAILY 06/26/17 Acetaminophen [Tylenol .Regular Strength -] 650 mg PO Q6H PRN tablet 07/14/17 Allopurinol 300 mg PO DAILY 12/11/17 Bimatoprost [Lumigan] 1 drop OU HS 12/11/17 Review of Systems - Review of Systems Neck: reports: Other (left jaw pain) Musculoskeletal: reports: No Symptoms, Other (currently no pain in leg because she is sitting and has not climbed stairs) Integumentary: reports: No Symptoms Physical Examination Vital Signs: Vital Signs Temperature 97.9 F 03/09/18 06:00 Pulse Rate 75 03/09/18 06:00 Respiratory Rate 20 03/09/18 06:00 Blood Pressure 105/58 03/09/18 06:00 O2 Sat by Pulse Oximetry (%) 99 03/08/18 21:00 Constitutional: Yes: Calm Neck: Yes: Trachea Midline Cardiovascular: Yes: Regular Rate and Rhythm, S1, S2 Respiratory: Yes: CTA Bilaterally Gastrointestinal: Yes: Normal Bowel Sounds, Soft Extremities: Yes: Other (no tenderness on exam) Edema: No Labs: CBC, BMP 03/09/18 06:30 03/09/18 06:30 Imaging - Results Other: Report Reviewed (no dvt in left leg) Problem List - Problems (1) Lower extremity pain, left Assessment/Plan: seen by ortho,neurology arterial dopplers MRI PT eval, WBAT Code(s): M79.605 - PAIN IN LEFT LEG (2) Non Hodgkin's lymphoma Assessment/Plan: being followed by oncology ]dvt opx Code(s): C85.90 - NON-HODGKIN LYMPHOMA, UNSPECIFIED, UNSPECIFIED SITE (3) Temporomandibular joint (TMJ) pain Assessment/Plan: MRI ordered Code(s): M26.629 - ARTHRALGIA OF TEMPOROMANDIBULAR JOINT, UNSPECIFIED SIDE
--- NOTE | 2018-03-09 18:01 | CON.ENT ---
Consult Consult Specialty:: otolaryngology Reason for Consultation:: jaw pain - History of Present Illness Chief Complaint: jaw hurts History of Present Illness: 82F admitted for evaluation for lower extremity pain. She is in the midst of chemotherapy for NHL. She complains of left jaw pain for the last week or so, worse when she chews. It hurts to open mouth wide. She denies bruxism. She admits there is a left maxillary tooth that has been hurting her for a similar time. She cannot have dental work in the midst of her chemotherapy and hasn't seen a dentist about it. There is no hearing loss, tinnitus, or vertigo. There is no sore throat, dysphagia, voice change. - History Source History Provided By: Patient Limitations to Obtaining History: No Limitations - Past Medical History Pulmonary: Yes: COPD ...: No - Past Surgical History Past Surgical History: Yes: Appendectomy - Alcohol/Substance Use Hx Alcohol Use: No History of Substance Use: reports: None - Smoking History Smoking history: Former smoker Have you smoked in the past 12 months: No If you are a former smoker, when did you quit?: 60 YRS AGO - Social History Usual Living Arrangement: Alone () Home Medications - Allergies Allergies/Adverse Reactions: Allergies Allergy/AdvReac Type Severity Reaction Status Date / Time No Known Allergies Allergy Verified 03/08/18 12:30 - Home Medications Home Medications: Ambulatory Orders L.acidoph,Paracasei, B.lactis [Probiotic] 1 each PO HS 04/11/17 Polyethylene Glycol 3350 [Miralax 119 gm Btl -] 17 gm PO DAILY PRN 04/11/17 Aspirin [Aspirin EC] 81 mg PO DAILY 06/26/17 Acetaminophen [Tylenol .Regular Strength -] 650 mg PO Q6H PRN tablet 07/14/17 Allopurinol 300 mg PO DAILY 12/11/17 Bimatoprost [Lumigan] 1 drop OU HS 12/11/17 Review of Systems - Review of Systems HENT: reports: Ear Pain. denies: Hearing Loss, Throat Pain, Ringing in Ears Neck: reports: No Symptoms Physical Exam-ENT Vital Signs: Vital Signs Temperature 97.5 F L 03/09/18 14:04 Pulse Rate 69 03/09/18 14:04 Respiratory Rate 20 03/09/18 14:04 Blood Pressure 145/69 03/09/18 14:04 O2 Sat by Pulse Oximetry (%) 99 03/09/18 09:00 Constitutional: Yes: Well Nourished, No Distress, Calm Head: Yes: WNL Face: Yes: WNL, Other (Left TMJ TTP) Eyes: Yes: WNL Nose: Yes: WNL, Septum Deviated Nasal Passage: Yes: WNL Oral/Pharynx: Yes: Other (mild trismus. Dentition is fair-moderate. She has a left maxillary implant that has some exposure of the post and the suprajacent gingiva/alveolar ridge is erythematous and demonstrates point tenderness. FOM soft, flat. Post o/p clear. No overt masses/lesions. Somewhat difficult to examine recesses given tongue resistance.) Outer Ear: Yes: WNL Ear Canal: Yes: WNL Tympanic Membrane: Yes: WNL Neck: Yes: WNL Neurological: Yes: Other (CN3-7,11,12 intact grossly) Problem List - Problems (1) Dental implant pain Assessment/Plan: Acute left tooth/jaw pain - likely dental - There appears to be an infection in her left maxillary tooth (premolar or molar) which is a dental implant - While elective dental work may be avoided during chemotherapy, she may need this addressed to prevent further progression. - Dental/OMFS eval advised - TMJ may be present as well as a secondary reaction to altered mastication from the tooth pain. Soft, mechanical diet advised. I do not think MRI TMJ is needed at this time, though if advised by an oral surgeon/dentist then would defer to them. - Care otherwise per primary team. Thank you for this consultation. Please call with questions. Code(s): T85.848A - PAIN DUE TO OTHER INTERNAL PROSTH DEV/GRFT, INIT
--- NOTE | 2018-03-09 21:14 | PN ---
Progress Note (short form) - Note Progress Note: Patient seen and examined Feels better chewing better Walking better Last Vital Signs Temp Pulse Resp BP Pulse Ox 98.9 F 88 20 120/69 99 03/09/18 20:00 03/09/18 20:00 03/09/18 20:00 03/09/18 20:00 03/09/18 09:00 Cor: RSR, No murmurs, No gallops Lungs: Clear to P&A Abd: Soft, Normal bowel sounds, No organomegaly Ext:No significant edema Lbs/Meds reviewed A/P Ms. Hubbard is an 82 yo female w/ pmh of COPD, non-hodgkins lymphoma/DLBCL who presents for evaluation of 3 day history of LLE pain. Patient localizes it to her calf region and says she has had difficulty walking. Of note, patient has recently finished 10 day course of levaquin which patient was taking for bronchitis. Patient also complaining of left sided jaw pain upon opening her mouth for the last two days. Localizes the pain to the head of the mandible. Concern for tendonitis due to levaquin ? achillest tendon normal on U/S but ? gastrocnemius/soleal involvement TMJ tendonitis? Improving f/u MRI left calf f/u ortho recommendtions
--- NOTE | 2018-03-10 01:55 | CONSULT ---
Consult Consult Specialty:: ENDOCRINE Referred by:: DR.AMMIR CAMACHO Reason for Consultation:: HYPERCALCEMIA - History of Present Illness Chief Complaint: MUSCLE PAIN History of Present Illness: 82 yo female w/ pmh of COPD, non-hodgkins lymphoma on chemo presents for evaluation of 3 day history of LLE pain. recently finished 10 day course of Levaquin for respiratory infection. c/o left calf pain, denies trauma. also c/o left jaw pain, worse with mastication but denies trauma or trismus. no fever or chills,she denies taking calcium supplements,has difficulty walking from the pain. - History Source History Provided By: Patient - Past Medical History Pulmonary: Yes: COPD ...: No - Past Surgical History Past Surgical History: Yes: Appendectomy - Alcohol/Substance Use Hx Alcohol Use: No History of Substance Use: reports: None - Smoking History Smoking history: Former smoker Have you smoked in the past 12 months: No If you are a former smoker, when did you quit?: 60 YRS AGO - Social History Usual Living Arrangement: Alone () Home Medications - Allergies Allergies/Adverse Reactions: Allergies Allergy/AdvReac Type Severity Reaction Status Date / Time No Known Allergies Allergy Verified 03/08/18 12:30 - Home Medications Home Medications: Ambulatory Orders L.acidoph,Paracasei, B.lactis [Probiotic] 1 each PO HS 04/11/17 Polyethylene Glycol 3350 [Miralax 119 gm Btl -] 17 gm PO DAILY PRN 04/11/17 Aspirin [Aspirin EC] 81 mg PO DAILY 06/26/17 Acetaminophen [Tylenol .Regular Strength -] 650 mg PO Q6H PRN tablet 07/14/17 Allopurinol 300 mg PO DAILY 12/11/17 Bimatoprost [Lumigan] 1 drop OU HS 12/11/17 Review of Systems - Review of Systems Constitutional: reports: Weakness Eyes: reports: No Symptoms HENT: reports: Hearing Loss Neck: reports: No Symptoms Cardiovascular: reports: No Symptoms Respiratory: reports: No Symptoms Gastrointestinal: reports: No Symptoms Genitourinary: reports: No Symptoms Breasts: reports: No Symptoms Reported Musculoskeletal: reports: No Symptoms Neurological: reports: Weakness Endocrine: reports: No Symptoms Physical Exam Vital Signs: Vital Signs Temperature 98.9 F 03/09/18 20:00 Pulse Rate 88 03/09/18 20:00 Respiratory Rate 20 03/09/18 20:00 Blood Pressure 120/69 03/09/18 20:00 O2 Sat by Pulse Oximetry (%) 99 03/09/18 09:00 Constitutional: Yes: Calm Eyes: Yes: EOM Intact HENT: Yes: Normocephalic Neck: Yes: Trachea Midline Cardiovascular: Yes: Regular Rate and Rhythm Respiratory: Yes: CTA Bilaterally Gastrointestinal: Yes: Normal Bowel Sounds ...Rectal Exam: Yes: Deferred Renal/: Yes: WNL Breast(s): Yes: WNL Musculoskeletal: Yes: WNL Extremities: Yes: WNL Neurological: Yes: Alert, Oriented, Weakness Labs: CBC, BMP 03/09/18 06:30 03/09/18 06:30 Problem List - Problems (1) Dental implant pain Code(s): T85.848A - PAIN DUE TO OTHER INTERNAL PROSTH DEV/GRFT, INIT (2) Difficulty walking Code(s): R26.2 - DIFFICULTY IN WALKING, NOT ELSEWHERE CLASSIFIED (3) Lower extremity pain, left Code(s): M79.605 - PAIN IN LEFT LEG (4) Non Hodgkin's lymphoma Code(s): C85.90 - NON-HODGKIN LYMPHOMA, UNSPECIFIED, UNSPECIFIED SITE (5) Temporomandibular joint (TMJ) pain Code(s): M26.629 - ARTHRALGIA OF TEMPOROMANDIBULAR JOINT, UNSPECIFIED SIDE (6) Anemia Code(s): D64.9 - ANEMIA, UNSPECIFIED Qualifiers: Other causes of anemia: chronic disease, other (7) COPD (chronic obstructive pulmonary disease) Code(s): J44.9 - CHRONIC OBSTRUCTIVE PULMONARY DISEASE, UNSPECIFIED (8) Hypercalcemia Code(s): E83.52 - HYPERCALCEMIA Assessment/Plan Current Active Problems Dental implant pain (Acute) Difficulty walking (Acute) Lower extremity pain, left (Acute) Non Hodgkin's lymphoma (Acute) Temporomandibular joint (TMJ) pain (Acute) hypercalcemia/ malignancy Abnormal Lab Results 03/09/18 03/09/18 06:30 06:30 RDW 17.6 H Chloride 110 H BUN 19 H AST 14 L Total Protein 5.3 L Laboratory Results - last 24 hr 03/09/18 03/09/18 06:30 06:30 WBC 6.8 RBC 4.00 Hgb 12.1 Hct 36.4 MCV 91.0 MCH 30.3 MCHC 33.3 RDW 17.6 H Plt Count 139 MPV 8.7 D Sodium 142 Potassium 4.0 Chloride 110 H Carbon Dioxide 23 Anion Gap 9 BUN 19 H Creatinine 0.7 Creat Clearance w eGFR > 60 Random Glucose 105 Calcium 9.2 Total Bilirubin 0.6 AST 14 L ALT 15 Alkaline Phosphatase 93 Total Protein 5.3 L Albumin 3.4 Laboratory Tests 03/08/18 13:40 Sodium 142 Potassium 3.8 Chloride 109 H Carbon Dioxide 28 Anion Gap 6 L BUN 17 Creatinine 1.0 Random Glucose 100 Calcium 10.3 H Total Bilirubin 0.8 Albumin 4.3 plan: continue iv fluid/rehydration likely fluid ballance physical therapy
[2018-03-10 07:13] LABS: BASO % 0.8 % (0-2.0); EOS % 3.2 % (0-4.5); HEMATOCRIT 34.6 % (32.4-45.2); HEMOGLOBIN 11.7 GM/dL (10.7-15.3); LYMPH % 7.6 % (8-40); MCH 30.8 pg (25.7-33.7); MCHC 33.9 g/dl (32.0-36.0); MEAN CELL VOLUME 90.9 fl (80-96); MEAN PLT VOLUME 8.2 fl (7.5-11.1); NEUT % 80.4 % (42.8-82.8); PLATELET COUNT 120 K/MM3 (134-434); RBC 3.81 M/mm3 (3.60-5.2); RDW 17.2 % (11.6-15.6); WHITE BLOOD COUNT 5.3 K/mm3 (4.0-10.0)
[2018-03-10 08:17] LABS: ALBUMIN 3.4 g/dl (3.4-5.0); ALK PHOS 83 U/L (45-117); ANION GAP 8 MMOL/L (8-16); BILIRUBIN,TOTAL 0.5 mg/dL (0.2-1); BLOOD UREA NITROGEN 14 mg/dL (7-18); CALCIUM 9.2 mg/dL (8.5-10.1); CHLORIDE 111 mmol/L (98-107); CO2 26 mmol/L (21-32); CREATININE 0.7 mg/dL (0.55-1.3); GLUCOSE,RANDOM 89 mg/dL (74-106); POTASSIUM 3.9 mmol/L (3.5-5.1); SGOT/AST 14 U/L (15-37); SGPT/ALT 15 U/L (13-61); SODIUM 146 mmol/L (136-145); TOT PROT 5.1 g/dl (6.4-8.2)
[2018-03-10] MEDS ORDERED: PT OWN MED DRAWER 7, Y5N ONE (11:20)
[2018-03-10] MEDS: ALLOPURINOL 300 MG TABLET (FP) PO SCH (11:21)
[2018-03-10] MEDS: METHYL SALICYLATE/MENTHOL OINT 30 GM TUBE TP SCH ×2 (11:22→11:23)
[2018-03-10] MEDS: POLYETHYLENE GLYCOL 3350 119 GM BTL PO SCH (11:22)
[2018-03-10] MEDS: HEPARIN NA (PORCINE) 5,000 UNITS/ML 1ML VIAL SQ SCH ×2 (11:22→21:23)
[2018-03-10] MEDS: SODIUM CHLORIDE 0.45% 1,000 ML IV SCH (11:28)
--- NOTE | 2018-03-10 15:52 | PN ---
Progress Note, Physician Chief Complaint: LLE pain jaw pain History of Present Illness: NAD, LLE pain MRI reviewed- gastrocnemius muscle tear, 2/2 to recent levaquin use for URI arterial doppler-mild atherosclerosis Venous doppler negative - Current Medication List Current Medications: Active Medications Acetaminophen (Tylenol -) 650 mg PO Q6H PRN PRN Reason: PAIN OR FEVER Allopurinol (Zyloprim -) 300 mg PO DAILY [facility] Last Admin: 03/10/18 11:21 Dose: 300 mg Heparin Sodium (Porcine) (Heparin -) 5,000 unit SQ BID [facility] Last Admin: 03/10/18 11:22 Dose: 5,000 unit Sodium Chloride (1/2 Normal Saline) 1,000 mls @ 42 mls/hr IV ASDIR [facility] Last Admin: 03/10/18 11:28 Dose: 42 mls/hr Methyl Salicylate (Ric-Duke -) 1 applic TP DAILY [facility] Last Admin: 03/10/18 11:23 Dose: 1 applic Polyethylene Glycol (Miralax (For Daily Use) -) 17 gm PO DAILY [facility] Last Admin: 03/10/18 11:22 Dose: 17 gm - Objective Vital Signs: Vital Signs Temperature 97.8 F 03/10/18 15:25 Pulse Rate 78 03/10/18 15:25 Respiratory Rate 18 03/10/18 15:25 Blood Pressure 116/58 L 03/10/18 15:25 O2 Sat by Pulse Oximetry (%) 99 03/09/18 21:00 Constitutional: Yes: Well Nourished, No Distress, Calm Cardiovascular: Yes: Regular Rate and Rhythm Respiratory: Yes: Regular Gastrointestinal: Yes: Normal Bowel Sounds, Soft Musculoskeletal: Yes: Muscle Pain (LLE) Edema: No Peripheral Pulses WNL: Yes Neurological: Yes: Alert, Oriented Psychiatric: Yes: Alert, Oriented Labs: CBC, BMP 03/10/18 06:00 03/10/18 06:00 Problem List - Problems (1) Lower extremity pain, left Code(s): M79.605 - PAIN IN LEFT LEG (2) Non Hodgkin's lymphoma Code(s): C85.90 - NON-HODGKIN LYMPHOMA, UNSPECIFIED, UNSPECIFIED SITE (3) Temporomandibular joint (TMJ) pain Code(s): M26.629 - ARTHRALGIA OF TEMPOROMANDIBULAR JOINT, UNSPECIFIED SIDE
--- NOTE | 2018-03-10 20:40 | PN ---
Progress Note (short form) - Note Progress Note: Patient seen in follow up. No new complaints. No significant events overnight. Denies pain/discomfort lower extremity at this time. Inpatient Meds reviewed. Current Medications Generic Name Dose Route Start Last Admin Trade Name Freq PRN Reason Stop Dose Admin Acetaminophen 650 mg 03/08/18 15:34 Tylenol - PO Q6H PRN PAIN OR FEVER Allopurinol 300 mg 03/09/18 10:00 03/10/18 11:21 Zyloprim - PO 300 mg DAILY ADRIÁN Administration Heparin Sodium (Porcine) 5,000 unit 03/08/18 22:00 03/10/18 11:22 Heparin - SQ 5,000 unit BID ADRIÁN Administration Sodium Chloride 1,000 mls @ 42 mls/hr 03/10/18 11:15 03/10/18 11:28 1/2 Normal Saline IV 42 mls/hr ASDIR ADRIÁN Administration Methyl Salicylate 1 applic 03/08/18 15:45 03/10/18 11:23 Ric-Duke - TP 1 applic DAILY ADRIÁN Administration Polyethylene Glycol 17 gm 03/09/18 10:00 03/10/18 11:22 Miralax (For Daily Use) - PO 17 gm DAILY ADRIÁN Administration On Examination: Last Vital Signs Temp Pulse Resp BP Pulse Ox 98.3 F 81 18 113/70 100 03/10/18 18:01 03/10/18 18:01 03/10/18 19:40 03/10/18 18:01 03/10/18 19:40 General: In no acute distress, lying comfortably in bed. Extremities: No pallor or icterus. No pedal edema. No palpable lymphadenopathy. CVS: S1, S2, regular, no gallop or murmur. Chest: good air entry bilaterally, clear Abdomen: Non-distended, non-tender, no palpable organomegaly. Neuro: Alert, oriented, non-focal. Labs: CBC, BMP 03/10/18 06:00 03/10/18 06:00 Assessment. Elderly female, with DLBCL, receiving chemotherapy, recently interrupted and admitted now for lower extremity pain, attributed to gastrocnemius tear ( recently on Levaquin for bronchitis). Awaiting recommendation orthopedics. Possible discharge home.
[2018-03-11 08:56] VITALS: BP 119/65; PULSE 72; TEMP 98.2
[2018-03-11] MEDS: ALLOPURINOL 300 MG TABLET (FP) PO SCH (09:29)
[2018-03-11] MEDS: HEPARIN NA (PORCINE) 5,000 UNITS/ML 1ML VIAL SQ SCH (09:29)
[2018-03-11] MEDS: SODIUM CHLORIDE 0.45% 1,000 ML IV SCH ×2 (09:30→12:24)
[2018-03-11] MEDS: METHYL SALICYLATE/MENTHOL OINT 30 GM TUBE TP SCH (09:31)
[2018-03-11] MEDS: POLYETHYLENE GLYCOL 3350 119 GM BTL PO SCH (09:36)
--- NOTE | 2018-03-11 10:38 | PN ---
Progress Note (short form) - Note Progress Note: Pt seen and examined. MRI reviewed. She feels much better. She is able to ambulate with much less pain. LLE looks good. Not swollen. Minimally tender over medial head left gastroc muscle belly. MRI confirms a small partial tear of the medial head of the gastroc muscle Imp As above Rec Can DC home today froman ortho pov F/U PRN
--- NOTE | 2018-03-11 11:52 | DS ---
Physical Examination Vital Signs: Vital Signs Temperature 98.2 F 03/11/18 08:55 Pulse Rate 72 03/11/18 08:55 Respiratory Rate 18 03/11/18 09:00 Blood Pressure 119/65 03/11/18 08:55 O2 Sat by Pulse Oximetry (%) 98 03/11/18 09:00 Findings/Remarks: Ms. Hubbard is an 82 yo female w/ pmh of COPD, non-hodgkins lymphoma on chemo who presents on direction of oncologist (Dr. Davison) for evaluation of 3 day history of LLE pain. recently finished 10 day course of Levaquin for respiratory infection. c/o left calf pain, denies trauma. also c/o left jaw pain, worse with mastication but denies trauma or trismus. no fever or chills no weakness or paresthesias or signs of infection per patient pain is aggrevated when she climbs up the stairs patient seen by ortho Constitutional: Yes: Well Nourished, No Distress, Calm Cardiovascular: Yes: Regular Rate and Rhythm Respiratory: Yes: Regular Gastrointestinal: Yes: Normal Bowel Sounds, Soft Musculoskeletal: Yes: WNL Extremities: Yes: WNL Edema: No Peripheral Pulses WNL: Yes Neurological: Yes: Alert, Oriented Psychiatric: Yes: Alert, Oriented Labs: CBC, BMP 03/10/18 06:00 03/10/18 06:00 Discharge Summary Reason For Visit: PAIN OF LEFT LOWER EXTREMITY, DIFFICULTY WALKING Current Active Problems Dental implant pain (Acute) Difficulty walking (Acute) Lower extremity pain, left (Acute) Non Hodgkin's lymphoma (Acute) Temporomandibular joint (TMJ) pain (Acute) Condition: Stable - Instructions Referrals: Vicente Carnes MD [Primary Care Provider] - Disposition: HOME - Home Medications Comprehensive Discharge Medication List: Ambulatory Orders L.acidoph,Paracasei, B.lactis [Probiotic] 1 each PO HS 04/11/17 Polyethylene Glycol 3350 [Miralax 119 gm Btl -] 17 gm PO DAILY PRN 04/11/17 Aspirin [Aspirin EC] 81 mg PO DAILY 06/26/17 Acetaminophen [Tylenol .Regular Strength -] 650 mg PO Q6H PRN tablet 07/14/17 Allopurinol 300 mg PO DAILY 12/11/17 Bimatoprost [Lumigan] 1 drop OU HS 12/11/17
--- NOTE | 2018-03-11 13:18 | PN ---
Progress Note (short form) - Note Progress Note: Patient seen in follow up. No new complaints. No significant events overnight. Denies pain/discomfort lower extremity, or jaw, at this time. Inpatient Meds reviewed. Current Medications Generic Name Dose Route Start Last Admin Trade Name Freq PRN Reason Stop Dose Admin Acetaminophen 650 mg 03/08/18 15:34 Tylenol - PO Q6H PRN PAIN OR FEVER Allopurinol 300 mg 03/09/18 10:00 03/11/18 09:29 Zyloprim - PO 300 mg DAILY ADRIÁN Administration Heparin Sodium (Porcine) 5,000 unit 03/08/18 22:00 03/11/18 09:29 Heparin - SQ 5,000 unit BID ADRIÁN Administration Sodium Chloride 1,000 mls @ 42 mls/hr 03/10/18 11:15 03/11/18 12:24 1/2 Normal Saline IV Not Given ASDIR ADRIÁN Methyl Salicylate 1 applic 03/08/18 15:45 03/11/18 09:31 Ric-Duke - TP Not Given DAILY ADRIÁN Polyethylene Glycol 17 gm 03/09/18 10:00 03/11/18 09:36 Miralax (For Daily Use) - PO Not Given DAILY ADRIÁN On Examination: Last Vital Signs Temp Pulse Resp BP Pulse Ox 98.2 F 72 18 119/65 98 03/11/18 08:55 03/11/18 08:55 03/11/18 09:00 03/11/18 08:55 03/11/18 09:00 General: In no acute distress, dressed, and walking around bed. Extremities: No pallor or icterus. No pedal edema. Chest: breathing comfortably Abdomen: Non-distended. Neuro: Alert, oriented, non-focal. Labs: CBC, BMP 03/10/18 06:00 03/10/18 06:00 Assessment. Elderly female, with DLBCL, receiving chemotherapy, recently interrupted and admitted now for lower extremity pain, attributed to gastrocnemius tear ( recently on Levaquin for bronchitis). Can follow with [facility] as outpatient Discharge home. Follow up with Dr. Davison as outpatient for continuation of management of her lymphoma.
== END 2018-03-11 13:30 | disposition home or self-care (01) | DRG 563 ==
LOC: JER 12:23 → JERBED 13:56 → J5S 18:10
PROVIDERS: ADMIT Family Medicine; ATTEND Family Medicine
DX: S86.812A Strain of other muscle(s) and tendon(s) at lower leg level, left leg, initial encounter (principal); C83.30 Diffuse large B-cell lymphoma, unspecified site; J44.9 Chronic obstructive pulmonary disease, unspecified; Z87.891 Personal history of nicotine dependence; R91.1 Solitary pulmonary nodule; M26.609 Unspecified temporomandibular joint disorder, unspecified side; M27.69 Other endosseous dental implant failure; D64.9 Anemia, unspecified; E83.52 Hypercalcemia; X58.XXXA Exposure to other specified factors, initial encounter; Y93.89 Activity, other specified; Y92.89 Other specified places as the place of occurrence of the external cause; Y99.8 Other external cause status
CPT/HCPCS: 36415; 71045-TC-FY; 73720-LT; 80053; 82607; 83615; 84439; 84443; 84550; 85025; 85027; 86803; 93005; 93010; 93925-TC; 93971-TC; 97116-GP; 97161-GP; 99281-25; J1644; J7030

== ENCOUNTER 2018-03-15 09:44 | Day surgery (SDC) | payer OTHER, MEDICARE ==
[2018-03-15 10:31] LABS: BASO % 0.7 % (0-2.0); EOS % 1.5 % (0-4.5); HEMATOCRIT 38.6 % (32.4-45.2); HEMOGLOBIN 12.9 GM/dL (10.7-15.3); LYMPH % 4.3 % (8-40); MCH 30.8 pg (25.7-33.7); MCHC 33.5 g/dl (32.0-36.0); MEAN CELL VOLUME 92.1 fl (80-96); MEAN PLT VOLUME 8.8 fl (7.5-11.1); MONO % 6.6 % (3.8-10.2); NEUT % 86.9 % (42.8-82.8); PLATELET COUNT 182 K/MM3 (134-434); RBC 4.19 M/mm3 (3.60-5.2); RDW 17.3 % (11.6-15.6); WHITE BLOOD COUNT 8.3 K/mm3 (4.0-10.0)
[2018-03-15] MEDS ORDERED: SODIUM CHLORIDE 500 ML IV ONE (10:45)
[2018-03-15 11:08] LABS: ALK PHOS 96 U/L (45-117); ANION GAP 10 MMOL/L (8-16); BILIRUBIN,DIRECT 0.2 mg/dL (0.0-0.2); BILIRUBIN,TOTAL 0.6 mg/dL (0.2-1); BLOOD UREA NITROGEN 17 mg/dL (7-18); CALCIUM 10.2 mg/dL (8.5-10.1); CHLORIDE 107 mmol/L (98-107); CO2 27 mmol/L (21-32); CREATININE 0.9 mg/dL (0.55-1.3); GLUCOSE,RANDOM 97 mg/dL (74-106); LDH 184 U/L (84-246); MAGNESIUM 2.3 mg/dL (1.8-2.4); POTASSIUM 4.6 mmol/L (3.5-5.1); SGOT/AST 12 U/L (15-37); SGPT/ALT 26 U/L (13-61); SODIUM 144 mmol/L (136-145); TOT PROT 6.1 g/dl (6.4-8.2); URIC ACID 3.6 mg/dL (2.6-7.2)
[2018-03-15] MEDS ORDERED: DIPHENHYDRAMINE IVPB ONE (11:30)
[2018-03-15] MEDS ORDERED: SODIUM CHLORIDE IVPB ONE ×3 (11:30→14:30)
[2018-03-15] MEDS ORDERED: DEXAMETHASONE INJECTION 20 MG in SODIUM CHLORIDE 50 ML IVPB ONE (11:30)
[2018-03-15] MEDS ORDERED: ACETAMINOPHEN 325 MG TABLET (FP) PO ONE (11:30)
[2018-03-15] MEDS ORDERED: ONDANSETRON IVPB ONE (11:30)
[2018-03-15] MEDS ORDERED: RITUXIMAB IVPB ONE (12:00)
[2018-03-15] MEDS ORDERED: CYCLOPHOSPHAMIDE IVPB ONE (14:30)
[2018-03-15] MEDS ORDERED: SODIUM CHLORIDE IV ONE (15:00)
[2018-03-15] MEDS ORDERED: DOXORUBICIN HCL IV ONE (15:00)
[2018-03-15] MEDS ORDERED: vinCRIStine SULFATE 1 MG in SODIUM CHLORIDE 50 ML IVPB ONE (15:30)
[2018-03-15 18:28] VITALS: BP 107/54; PULSE 73; TEMP 97.5
[2018-03-15] MEDS ORDERED: PORTA CATH FLUSH 10 ML IVPUSH ONE (18:28)
[2018-03-17 00:08] LABS: HEP B CORE AB, IGM Negative (Negative); HEP B CORE AB, TOT Negative (Negative)
== END 2018-03-15 18:35 | disposition home or self-care (01) ==
LOC: JONCCHEMO 09:44 → J7W 11:09 → JONCCHEMO 18:35
PROVIDERS: ATTEND Internal Medicine Hematology & Oncology
DX: Z51.11 Encounter for antineoplastic chemotherapy (principal); C83.30 Diffuse large B-cell lymphoma, unspecified site
CPT/HCPCS: 36415; 80053; 80076; 83615; 83735; 84550; 85025; 86704; 86705; 86706; 86707; 87350; 87517; 96361; 96375; 96411; 96413; 96415; 96417; J2405; J9070; J9310; J9370

== ENCOUNTER 2018-03-16 07:40 | Day surgery (SDC) | payer OTHER, MEDICARE ==
[2018-03-16] MEDS ORDERED: PEGFILGRASTIM 6 MG/0.6 ML DISP.SYRIN SQ ONE (16:45)
[2018-03-16 18:07] VITALS: BP 106/52; PULSE 72; TEMP 98.2
== END 2018-03-16 17:00 | disposition home or self-care (01) ==
LOC: JONCCHEMO 07:40 → J7W 16:27 → JONCCHEMO 17:00
PROVIDERS: ATTEND Internal Medicine Hematology & Oncology
PROC: 3E013GC Introduction of Other Therapeutic Substance into Subcutaneous Tissue, Percutaneous Approach (ICD-10-PCS; principal; 2018-03-16)
DX: C83.30 Diffuse large B-cell lymphoma, unspecified site (principal); Z76.89 Persons encountering health services in other specified circumstances
CPT/HCPCS: 96372; J2505

== ENCOUNTER 2019-01-13 13:05 | Inpatient (IN) | payer OTHER, MEDICARE ==
[2019-01-13] MEDS ORDERED: CEFTRIAXONE 1 GM in DEXTROSE 5%-WATER - 100 ML IVPB ONE (14:50)
[2019-01-13] MEDS ORDERED: ACETAMINOPHEN 325 MG TABLET (FP) PO ONE (14:59)
--- NOTE | 2019-01-13 15:04 | PDOC ---
Documentation entered by Danita Lowe SCRIBE, acting as scribe for Washington Albert MD. Washington Albert MD: This documentation has been prepared by the Chrissy watts Nirvannie, SCRIBE, under my direction and personally reviewed by me in its entirety. I confirm that the documentation accurately reflects all work, treatment, procedures, and medical decision making performed by me. History of Present Illness - General Chief Complaint: Weakness Stated Complaint: WEAK AND DIZZY Time Seen by Provider: 01/13/19 14:04 History Source: Patient Exam Limitations: No Limitations - History of Present Illness Initial Comments: 01/13/19 15:59 The patient is a 72 year old female, with a significant past medical history of COPD, non-hodgkin's lymphoma, who presents to the emergency department with, 2 weeks of a persistent non-productive cough with associated generalized weakness and decreased PO intake. Patient was recently seen by her PCP and was given outpatient workup for her symptoms including a chest x-ray. She denies recent chest pain or fevers. She denies recent nausea, vomiting, diarrhea or constipation. She denies recent dysuria, frequency, urgency or hematuria. Allergies: Azithromycin, levofloxacin. Primary Care Physician: Dr. Carnes Critical Care Physician: Dr. Horta Regulatory Affairs Associate: Dr. Sheets Heme/Onc: Dr. Davison Past History - Past Medical History Allergies/Adverse Reactions: Allergies Allergy/AdvReac Type Severity Reaction Status Date / Time azithromycin Allergy Unknown Verified 01/13/19 13:09 levofloxacin [From Levaquin] AdvReac Severe Verified 01/13/19 13:09 Home Medications: Ambulatory Orders L.acidoph,Paracasei, B.lactis [Probiotic] 1 each PO HS 04/11/17 Polyethylene Glycol 3350 [Miralax 119 gm Btl -] 17 gm PO DAILY PRN 04/11/17 Aspirin [Aspirin EC] 81 mg PO DAILY 06/26/17 Acetaminophen [Tylenol .Regular Strength -] 650 mg PO Q6H PRN tablet 07/14/17 Allopurinol 300 mg PO DAILY 12/11/17 Bimatoprost [Lumigan] 1 drop OU HS 12/11/17 Methyl Salicylate/Menthol Oint [Analgesic Medina -] 1 applic TP DAILY #1 tube Anemia: No Asthma: No Cancer: Yes (Non Hodgkins Lymphoma) Cardiac Disorders: No CVA: No COPD: No CHF: No Dementia: No Diabetes: No GI Disorders: Yes (DIVERTICULITIS) Disorders: No HTN: No Hypercholesterolemia: No Liver Disease: No Seizures: No Thyroid Disease: No - Surgical History Abdominal Surgery: No Appendectomy: No Cardiac Surgery: No Cholecystectomy: No Lung Surgery: No Neurologic Surgery: No Orthopedic Surgery: No - Suicide/Smoking/Psychosocial Hx Smoking History: Never smoked Have you smoked in the past 12 months: No If you are a former smoker, when did you quit?: 60 YRS AGO Hx Alcohol Use: No Drug/Substance Use Hx: No Substance Use Type: None Hx Substance Use Treatment: No Review of Systems - Review of Systems Able to Perform ROS?: Yes Comments:: 01/13/19 16:00 GENERAL/CONSTITUTIONAL: +Weakness +Decreased PO intake. HEAD, EYES, EARS, NOSE AND THROAT: No change in vision. No ear pain or discharge. No sore throat. CARDIOVASCULAR: No chest pain or shortness of breath. RESPIRATORY: +Cough. No wheezing, or hemoptysis. GASTROINTESTINAL: No nausea, vomiting, diarrhea or constipation. GENITOURINARY: No dysuria, frequency, or change in urination. MUSCULOSKELETAL: No joint or muscle swelling or pain. No neck or back pain. SKIN: No rash NEUROLOGIC: No headache, vertigo, loss of consciousness, or change in strength/ sensation. ENDOCRINE: No increased thirst. No abnormal weight change. HEMATOLOGIC/LYMPHATIC: No anemia, easy bleeding, or history of blood clots. ALLERGIC/IMMUNOLOGIC: No hives or skin allergy. All Other Systems: Reviewed and Negative *Physical Exam - Vital Signs Last Vital Signs Temp Pulse Resp BP Pulse Ox 99.8 F H 108 H 18 119/55 L 99 01/13/19 13:07 01/13/19 13:07 01/13/19 13:07 01/13/19 13:07 01/13/19 13:07 - Physical Exam Comments: 01/13/19 16:01 GENERAL: Awake, alert, and fully oriented, in no acute distress HEAD: No signs of trauma NECK: Normal ROM, supple, no lymphadenopathy, JVD, or masses LUNGS: +Crackles at the right bases. HEART: Regular rate and rhythm, normal S1 and S2, no murmurs, rubs or gallops ABDOMEN: Soft, nontender, normoactive bowel sounds. No guarding, no rebound. No masses EXTREMITIES: Normal range of motion, no edema. No clubbing or cyanosis. No cords, erythema, or tenderness NEUROLOGICAL: Cranial nerves II through XII grossly intact. Normal speech. SKIN: Warm, Dry, normal turgor, no rashes or lesions noted. Heart Score/ECG Review #1 ECG reviewed & interpreted by me at: 14:20 01/13/19 15:05 NSR 95, no std/leny, normal axis, normal intervals, QTC 447 msec ED Treatment Course - LABORATORY CBC & Chemistry Diagram: 01/13/19 15:05 01/13/19 15:05 - RADIOLOGY Radiology Studies Ordered: Category Date Time Status CHEST X-RAY PORTABLE* [RAD] Stat Radiology 01/13/19 14:04 Completed Medical Decision Making - Medical Decision Making 01/13/19 14:59 A portion of this note was written by my scribe, under my supervision. Vital Signs Temp Pulse Resp BP Pulse Ox 99.8 F H 108 H 18 119/55 L 99 01/13/19 13:07 01/13/19 13:07 01/13/19 13:07 01/13/19 13:07 01/13/19 13:07 83 year old female with history of COPD, non-hodgkin's lymphoma presents with cough x several days. The patient started to develop a cough gradually worsening. Initially, was trying to perform supportive care. As an outpatient, had a chest xray performed, which demonstrated RLL Pneumonia. Symptoms worsened, and today, pt's PMD, Dr. Carnes, advised pt to come to the ER. Pt denies difficulty breathing or chest pain. Denies fevers. But reports that she has worsening cough. Chest xray today shows worsening worsening pneumonia. Will need to admit for CAP PNA. Pt has allergies to azithromycin and levaquin. Start ceftriaxone. Labs including cultures. Admit. 01/13/19 16:24 CBC, BMP 01/13/19 15:05 01/13/19 15:05 CMP Sodium 140 mmol/L (136-145) 01/13/19 15:05 Potassium 3.7 mmol/L (3.5-5.1) 01/13/19 15:05 Chloride 106 mmol/L (98-107) 01/13/19 15:05 Carbon Dioxide 27 mmol/L (21-32) 01/13/19 15:05 Anion Gap 8 MMOL/L (8-16) 01/13/19 15:05 BUN 12.1 mg/dL (7-18) 01/13/19 15:05 Creatinine 0.7 mg/dL (0.55-1.3) 01/13/19 15:05 Est GFR (CKD-EPI)AfAm 92.21 01/13/19 15:05 Est GFR (CKD-EPI)NonAf 79.56 01/13/19 15:05 Random Glucose 107 mg/dL (74-106) H 01/13/19 15:05 Lactic Acid 0.6 mmol/L (0.4-2.0) 01/13/19 15:09 Calcium 8.4 mg/dL (8.5-10.1) L 01/13/19 15:05 Phosphorus 2.1 mg/dL (2.5-4.9) L 01/13/19 15:05 Magnesium 2.1 mg/dL (1.8-2.4) 01/13/19 15:05 Total Bilirubin 0.7 mg/dL (0.2-1) 01/13/19 15:05 AST 127 U/L (15-37) H 01/13/19 15:05 ALT 252 U/L (13-61) H 01/13/19 15:05 Alkaline Phosphatase 169 U/L (45-117) H 01/13/19 15:05 Troponin I < 0.02 ng/ml (0.00-0.05) 01/13/19 15:05 Total Protein 5.3 g/dl (6.4-8.2) L 01/13/19 15:05 Albumin 2.7 g/dl (3.4-5.0) L 01/13/19 15:05 TSH 1.00 uIU/ml (0.358-3.74) 01/13/19 15:05 01/13/19 17:44 Case spoke to [facility] hospitalist (Nick Tom). Admitted under Dr. Kinsey' s name. *DC/Admit/Observation/Transfer Diagnosis at time of Disposition: Pneumonia Qualifiers: Pneumonia type: due to unspecified organism Laterality: right Lung location: lower lobe of lung Qualified Code(s): J18.1 - Lobar pneumonia, unspecified organism - Discharge Dispostion Condition at time of disposition: Stable Decision to Admit order: Yes - Referrals Referrals: Vicente Carnes MD [Primary Care Provider] - - Patient Instructions - Post Discharge Activity
[2019-01-13 15:21] LABS: BASO % 0.4 % (0-2.0); EOS % 0.3 % (0-4.5); HEMATOCRIT 32.3 % (32.4-45.2); HEMOGLOBIN 10.9 GM/dL (10.7-15.3); LYMPH % 3.3 % (8-40); MCHC 33.7 g/dl (32.0-36.0); MEAN CELL VOLUME 86.1 fl (80-96); MEAN PLT VOLUME 7.9 fl (7.5-11.1); PLATELET COUNT 200 K/MM3 (134-434); RBC 3.75 M/mm3 (3.60-5.2); RDW 14.8 % (11.6-15.6); WHITE BLOOD COUNT 11.7 K/mm3 (4.0-10.0)
[2019-01-13 15:24] LABS: VENOUS PC02 37.5 mmHg (41-51); VENOUS PH 7.46 (7.31-7.41); VENOUS PO2 31.9 mmHg (30-40)
[2019-01-13 15:39] LABS: ALBUMIN 2.7 g/dl (3.4-5.0); BILIRUBIN,TOTAL 0.7 mg/dL (0.2-1); BLOOD UREA NITROGEN 12.1 mg/dL (7-18); CALCIUM 8.4 mg/dL (8.5-10.1); CREATININE 0.7 mg/dL (0.55-1.3); POTASSIUM 3.7 mmol/L (3.5-5.1); TOT PROT 5.3 g/dl (6.4-8.2)
[2019-01-13 15:46] LABS: MAGNESIUM 2.1 mg/dL (1.8-2.4); PHOSPHOROUS 2.1 mg/dL (2.5-4.9)
[2019-01-13 15:48] LABS: INR 1.32 (0.83-1.09); PROTHROMBIN TIME (PATIENT) 15.6 SEC (9.7-13.0)
[2019-01-13 16:48] LABS: EPI CELLS 2.8 /HPF (0-5/HPF); HYALINE CASTS 8 /lpf (0-8); URINE APPEARANCE CLEAR; URINE BILIRUBIN NEGATIVE (NEGATIVE); URINE COLOR DK YELLOW; URINE GLUCOSE (UA) NEGATIVE (NEGATIVE); URINE KETONE NEGATIVE (NEGATIVE); URINE LEUK ESTERASE TRACE (NEGATIVE); URINE NITRITE NEGATIVE (NEGATIVE); URINE PROTEIN 2+ (NEGATIVE); URINE WBC 3 /hpf (0-5)
[2019-01-13] MEDS ORDERED: ACETAMINOPHEN 325 MG TABLET (FP) ONE (17:30)
[2019-01-13] MEDS ORDERED: CEFTRIAXONE 1 GM/50 ML BAG ONE (17:30)
--- NOTE | 2019-01-13 19:37 | HP ---
CHIEF COMPLAINT: Weakness PCP: HISTORY OF PRESENT ILLNESS: 72 year old female, with PMHx,non-Hodgkin's lymphoma,hypothyroidism, who presented outpatient, with 2 weeks of a persistent non-productive cough with associated generalized weakness and decreased PO intake. Patient was seen 01/10 and was given outpatient workup for her symptoms, however became increasingly weak and unable to get out of bed, with low grade fever. She was advised to present to ED. She was found to have possible pneumonia on cxr. PT denies hemoptysis, nausea vomiting or diarrhea. Sister in law, Shelby at bedside is point of contact. The patient nor Shelby would verbalize history of Dementia, but explained it as the patient has become forgetful over the last few months. Patient is currently on dementia medication. ER course was notable for: (1) Chest Xray- RLL infiltrate Recent Travel: denies PAST MEDICAL HISTORY: Non Hodgkin's Lymphoma PAST SURGICAL HISTORY: Social History: Smoking: Social Only but stopped years ago Alcohol: denies Drugs: denies Family History: Mother and Father has diabetes Allergies azithromycin Allergy (Unknown, Verified 01/13/19 13:09) levofloxacin [From Levaquin] Adverse Reaction (Severe, Verified 01/13/19 13:09) tendon tear HOME MEDICATIONS: Home Medications Medication Instructions Recorded L.acidoph,Paracasei, B.lactis 1 each PO HS 04/11/17 [Probiotic] Polyethylene Glycol 3350 [Miralax 17 gm PO DAILY PRN 04/11/17 119 gm Btl -] Aspirin [Aspirin EC] 81 mg PO DAILY 06/26/17 Acetaminophen [Tylenol .Regular 650 mg PO Q6H PRN tablet 07/14/17 Strength -] Allopurinol 300 mg PO DAILY 12/11/17 Bimatoprost [Lumigan] 1 drop OU HS 12/11/17 Methyl Salicylate/Menthol Oint 1 applic TP DAILY #1 tube 03/11/18 [Analgesic Wilson -] REVIEW OF SYSTEMS Constitutional: reports: Lethargy, Loss of Appetite, Weakness Eyes: reports: No Symptoms HENT: reports: No Symptoms Neck: reports: No Symptoms Cardiovascular: reports: No Symptoms Respiratory: reports: Cough, SOB Gastrointestinal: reports: No Symptoms Genitourinary: reports: No Symptoms Breasts: reports: No Symptoms Reported Musculoskeletal: reports: No Symptoms Integumentary: reports: No Symptoms Endocrine: reports: No Symptom PHYSICAL EXAMINATION Vital Signs - 24 hr 01/13/19 13:07 Temperature 99.8 F H Pulse Rate 108 H Respiratory 18 Rate Blood Pressure 119/55 L O2 Sat by Pulse 99 Oximetry (%) GENERAL: Awake, alert, and fully oriented, in no acute distress. HEAD: Normal with no signs of trauma. EYES: Pupils equal, round and reactive to light, extraocular movements intact, sclera anicteric, conjunctiva clear. No lid lag. EARS, NOSE, THROAT: Ears normal, nares patent, oropharynx clear without exudates. Patient has an irregular mass on the roof of her mouth. Pt states it has been there and is normal. Moist mucous membranes. NECK: Normal range of motion, supple without lymphadenopathy, JVD, or masses. LUNGS: crackles RLL HEART: Regular rate and rhythm, normal S1 and S2 ABDOMEN: Soft, nontender, not distended, normoactive bowel sounds, no guarding, no rebound, no masses. MUSCULOSKELETAL: Normal range of motion at all joints. No bony deformities or tenderness. No CVA tenderness. UPPER EXTREMITIES: 2+ pulses, warm, well-perfused. No cyanosis. No clubbing. No peripheral edema. LOWER EXTREMITIES: 2+ pulses, warm, well-perfused. No calf tenderness. No peripheral edema. NEUROLOGICAL: Normal speech. Normal gait. PSYCHIATRIC: Cooperative. Good eye contact. Appropriate mood and affect. SKIN: Warm, dry, normal turgor, no rashes or lesions noted, normal capillary refill. Laboratory Results - last 24 hr 01/13/19 01/13/19 01/13/19 15:05 15:05 15:05 WBC 11.7 H RBC 3.75 Hgb 10.9 Hct 32.3 L MCV 86.1 MCH 29.0 MCHC 33.7 RDW 14.8 Plt Count 200 MPV 7.9 Absolute Neuts (auto) 10.4 H Neutrophils % 89.0 H Lymphocytes % 3.3 L Monocytes % 7.0 Eosinophils % 0.3 Basophils % 0.4 Nucleated RBC % 0 PT with INR INR PTT (Actin FS) 29.2 VBG pH POC VBG pCO2 POC VBG pO2 VBG HCO3 VBG O2 Sat (Richard) VBG Base Excess Sodium 140 Potassium 3.7 Chloride 106 Carbon Dioxide 27 Anion Gap 8 BUN 12.1 Creatinine 0.7 Est GFR (CKD-EPI)AfAm 92.21 Est GFR (CKD-EPI)NonAf 79.56 Random Glucose 107 H Lactic Acid Calcium 8.4 L Phosphorus Magnesium Total Bilirubin 0.7 AST 127 H ALT 252 H Alkaline Phosphatase 169 H Troponin I Total Protein 5.3 L Albumin 2.7 L TSH Urine Color Urine Appearance Urine pH Ur Specific [place] Urine Protein Urine Glucose (UA) Urine Ketones Urine Blood Urine Nitrite Urine Bilirubin Urine Urobilinogen Ur Leukocyte Esterase Urine WBC (Auto) Urine Casts (Auto) U Epithel Cells (Auto) Urine Bacteria (Auto) 01/13/19 01/13/19 01/13/19 15:05 15:05 15:05 WBC RBC Hgb Hct MCV MCH MCHC RDW Plt Count MPV Absolute Neuts (auto) Neutrophils % Lymphocytes % Monocytes % Eosinophils % Basophils % Nucleated RBC % PT with INR 15.60 H INR 1.32 H PTT (Actin FS) VBG pH POC VBG pCO2 POC VBG pO2 VBG HCO3 VBG O2 Sat (Richard) VBG Base Excess Sodium Potassium Chloride Carbon Dioxide Anion Gap BUN Creatinine Est GFR (CKD-EPI)AfAm Est GFR (CKD-EPI)NonAf Random Glucose Lactic Acid Calcium Phosphorus Cancelled 2.1 L Magnesium Cancelled 2.1 Total Bilirubin AST ALT Alkaline Phosphatase Troponin I < 0.02 Total Protein Albumin TSH 1.00 Urine Color Urine Appearance Urine pH Ur Specific [place] Urine Protein Urine Glucose (UA) Urine Ketones Urine Blood Urine Nitrite Urine Bilirubin Urine Urobilinogen Ur Leukocyte Esterase Urine WBC (Auto) Urine Casts (Auto) U Epithel Cells (Auto) Urine Bacteria (Auto) 01/13/19 01/13/19 01/13/19 15:05 15:05 15:09 WBC RBC Hgb Hct MCV MCH MCHC RDW Plt Count MPV Absolute Neuts (auto) Neutrophils % Lymphocytes % Monocytes % Eosinophils % Basophils % Nucleated RBC % PT with INR INR PTT (Actin FS) VBG pH 7.46 H POC VBG pCO2 37.5 L POC VBG pO2 31.9 VBG HCO3 26.0 VBG O2 Sat (Richard) 60.4 L VBG Base Excess 2.6 H Sodium Potassium Chloride Carbon Dioxide Anion Gap BUN Creatinine Est GFR (CKD-EPI)AfAm Est GFR (CKD-EPI)NonAf Random Glucose Lactic Acid 0.6 Calcium Phosphorus Magnesium Total Bilirubin AST ALT Alkaline Phosphatase Troponin I Cancelled Total Protein Albumin TSH Urine Color Urine Appearance Urine pH Ur Specific [place] Urine Protein Urine Glucose (UA) Urine Ketones Urine Blood Urine Nitrite Urine Bilirubin Urine Urobilinogen Ur Leukocyte Esterase Urine WBC (Auto) Urine Casts (Auto) U Epithel Cells (Auto) Urine Bacteria (Auto) 01/13/19 16:30 WBC RBC Hgb Hct MCV MCH MCHC RDW Plt Count MPV Absolute Neuts (auto) Neutrophils % Lymphocytes % Monocytes % Eosinophils % Basophils % Nucleated RBC % PT with INR INR PTT (Actin FS) VBG pH POC VBG pCO2 POC VBG pO2 VBG HCO3 VBG O2 Sat (Richard) VBG Base Excess Sodium Potassium Chloride Carbon Dioxide Anion Gap BUN Creatinine Est GFR (CKD-EPI)AfAm Est GFR (CKD-EPI)NonAf Random Glucose Lactic Acid Calcium Phosphorus Magnesium Total Bilirubin AST ALT Alkaline Phosphatase Troponin I Total Protein Albumin TSH Urine Color Dk yellow Urine Appearance Clear Urine pH 6.0 Ur Specific [place] 1.021 Urine Protein 2+ H Urine Glucose (UA) Negative Urine Ketones Negative Urine Blood 1+ H Urine Nitrite Negative Urine Bilirubin Negative Urine Urobilinogen 2.0 H Ur Leukocyte Esterase Trace Urine WBC (Auto) 3 Urine Casts (Auto) 8 U Epithel Cells (Auto) 2.8 Urine Bacteria (Auto) 2.0 ASSESSMENT/PLAN: Pneumonia -CXR reveals progressive infiltrate at the right base - Temp 99.8 at 1307 -Crackles in RLL -UA/Blood Culture-- Pending -one dose of Ceftriaxone 1gm given in ER -Ceftriaxone 1gm IV daily-Begin Monday AM -Doxycycline 100mg IV BID -1st Dose given this tonight -ED Consulted Cardiology and Pulm Dementia -Continue Home Meds --Memantine 5mg PO BID --Donepezil HCL 10mg PO Daily COPD -Not currently on any home treatment -PRN Duonebs and O2 FEN -NS 75ml/hr 1L - Replenish Electrolytes as needed - Regular Diet DVT Prophylaxis -Heparin 5000 units SQ TID -Up out of bed Dispo -Full Code Point of Contact -[id number]-[id number]-cst Celia Swift --Home # [phone] -- Visit type - Emergency Visit Emergency Visit: Yes ED Registration Date: 01/13/19 Care time: The patient presented to the Emergency Department on the above date and was hospitalized for further evaluation of their emergent condition. - New Patient This patient is new to me today: Yes Date on this admission: 01/16/19 - Critical Care Critical Care patient: No
[2019-01-13 20:09] LABS: URINE RBC 27.2 /hpf (0-4)
--- NOTE | 2019-01-13 20:57 | EKG ---
Test Reason : Blood Pressure : / mmHG Vent. Rate : 095 BPM Atrial Rate : 095 BPM P-R Int : 136 ms QRS Dur : 072 ms QT Int : 356 ms P-R-T Axes : 055 022 047 degrees QTc Int : 447 ms NORMAL SINUS RHYTHM POSSIBLE LEFT ATRIAL ENLARGEMENT BORDERLINE ECG WHEN COMPARED WITH ECG OF 08-MAR-2018 13:02, NO SIGNIFICANT CHANGE WAS FOUND Confirmed by TRACEE RANDALL MD ([id number]) on 01/13/2019 8:57:06 PM Referred By: Confirmed By:TRACEE RANDALL MD
[2019-01-13] MEDS ORDERED: HEPARIN NA (PORCINE) 5,000 UNITS/ML 1ML VIAL SQ SCH (22:00)
[2019-01-13] MEDS: DOXYCYCLINE INJECTION 100 MG in DEXTROSE 5%-WATER - 100 ML IVPB SCH (22:50)
[2019-01-13] MEDS ORDERED: PATIENT'S OWN MEDICATION (NON-FORMULARY) (Vit D3/Folic Acid/B2/B6/B12 [Folgard Tablet] 1 E PO SCH (23:00)
--- NOTE | 2019-01-13 23:10 | CONSULT ---
Consult Consult Specialty:: endocrine Referred by:: dr.annabi yañez Reason for Consultation:: hypocalcemia - History of Present Illness Chief Complaint: weakness and dizzy History of Present Illness: 72 year old female, with pmh,non-hodgkin's lymphoma,hypothyroidism, who presented outpatient, with, 2 weeks of a persistent non-productive cough with associated generalized weakness and decreased PO intake. Patient was seen 01/10 and was given outpatient workup for her symptoms ,however became increasing weak and unable to get out of bed,with low grade fever.she was advised to present to ed.she was found to have possible pneumonia on cxr.she denies hemoptysis,nausea vomiting or diarhea. - Past Medical History Pulmonary: Yes: COPD - Past Surgical History Past Surgical History: Yes: Appendectomy - Alcohol/Substance Use Hx Alcohol Use: No History of Substance Use: reports: None - Smoking History Smoking history: Never smoked Have you smoked in the past 12 months: No If you are a former smoker, when did you quit?: 60 YRS AGO - Social History Usual Living Arrangement: Alone () Home Medications - Allergies Allergies/Adverse Reactions: Allergies Allergy/AdvReac Type Severity Reaction Status Date / Time azithromycin Allergy Unknown Verified 01/13/19 13:09 levofloxacin [From Levaquin] AdvReac Severe Verified 01/13/19 13:09 - Home Medications Home Medications: Ambulatory Orders L.acidoph,Paracasei, B.lactis [Probiotic] 1 each PO HS 04/11/17 Aspirin [Aspirin EC] 81 mg PO Q2D 06/26/17 Bimatoprost [Lumigan] 1 drop OU HS 12/11/17 B Complex C 11/Calcium/Dha/Q10 [Brain Cqkop-Qbb-Hy Q10 Tablet] 1 each PO DAILY 01/13/19 Donepezil HCl 10 mg PO DAILY 01/13/19 Memantine HCl [Namenda -] 5 mg PO BID 01/13/19 Vit D3/Folic Acid/B2/B6/B12 [Folgard Tablet] 1 each PO WEEKLY 01/13/19 Review of Systems - Review of Systems Constitutional: reports: Lethargy, Loss of Appetite, Weakness Eyes: reports: No Symptoms HENT: reports: No Symptoms Neck: reports: No Symptoms Cardiovascular: reports: No Symptoms Respiratory: reports: Cough, SOB Gastrointestinal: reports: No Symptoms Genitourinary: reports: No Symptoms Breasts: reports: No Symptoms Reported Musculoskeletal: reports: No Symptoms Integumentary: reports: No Symptoms Endocrine: reports: No Symptoms Physical Exam Vital Signs: Vital Signs Temperature 99.8 F H 01/13/19 13:07 Pulse Rate 85 01/13/19 21:04 Respiratory Rate 20 01/13/19 21:04 Blood Pressure 104/61 01/13/19 21:04 O2 Sat by Pulse Oximetry (%) 95 01/13/19 21:05 Constitutional: Yes: Calm Eyes: Yes: EOM Intact HENT: Yes: Normocephalic Neck: Yes: Trachea Midline Cardiovascular: Yes: Tachycardia Respiratory: Yes: Rhonchi, SOB, Tachypnea Gastrointestinal: Yes: Normal Bowel Sounds ...Rectal Exam: Yes: Deferred Renal/: Yes: WNL Musculoskeletal: Yes: WNL Extremities: Yes: WNL Edema: No Integumentary: Yes: WNL Neurological: Yes: Alert, Oriented Labs: CBC, BMP 01/13/19 15:05 01/13/19 15:05 Assessment/Plan Current Active Problems Pneumonia (Acute) non hodgkin lymphoma copd dehydration hypocalcemia vitamin d related Abnormal Lab Results 01/13/19 01/13/19 01/13/19 15:05 15:05 15:05 WBC 11.7 H Hct 32.3 L Absolute Neuts (auto) 10.4 H Neutrophils % 89.0 H Lymphocytes % 3.3 L PT with INR 15.60 H INR 1.32 H VBG pH POC VBG pCO2 VBG O2 Sat (Richard) VBG Base Excess Random Glucose 107 H Calcium 8.4 L Phosphorus AST 127 H ALT 252 H Alkaline Phosphatase 169 H Total Protein 5.3 L Albumin 2.7 L Urine Protein Urine Blood Urine Urobilinogen 01/13/19 01/13/19 01/13/19 15:05 15:05 16:30 WBC Hct Absolute Neuts (auto) Neutrophils % Lymphocytes % PT with INR INR VBG pH 7.46 H POC VBG pCO2 37.5 L VBG O2 Sat (Richard) 60.4 L VBG Base Excess 2.6 H Random Glucose Calcium Phosphorus 2.1 L AST ALT Alkaline Phosphatase Total Protein Albumin Urine Protein 2+ H Urine Blood 1+ H Urine Urobilinogen 2.0 H plan:vitamin d level drisdol 50k weekly vitamin d level pulmonary consult ck tsh free t4
[2019-01-13] MEDS ORDERED: ERGOCALCIFEROL (VIT D2) 50,000 UNIT (1.25 MG) CAPSULE PO ONE (23:16)
[2019-01-13 23:34] VITALS: BMI 25.0
[2019-01-14] MEDS ORDERED: ALBUTEROL SO4 2.5/IPRATROPIUM 0.5 INH SOL 3 ML VIAL.NEB. NEB PRN (00:13)
[2019-01-14] MEDS ORDERED: SODIUM CHLORIDE 1,000 ML IV ONE (00:20)
[2019-01-14] MEDS: MEMANTINE HCL 5 MG TABLET (UD) PO SCH ×3 (01:45→21:32)
[2019-01-14] MEDS: HEPARIN NA (PORCINE) 5,000 UNITS/ML 1ML VIAL SQ SCH ×3 (06:25→21:31)
--- NOTE | 2019-01-14 08:24 | PN ---
Progress Note, Physician Chief Complaint: AWAKE ALERT EVENTS AND NOTES REVIEWED - Current Medication List Current Medications: Active Medications Albuterol/Ipratropium (Duoneb -) 1 amp NEB Q4H PRN PRN Reason: SHORTNESS OF BREATH Aspirin (Ecotrin -) 81 mg PO Q2D [facility] Donepezil HCl (Aricept -) 10 mg PO DAILY [facility] Heparin Sodium (Porcine) (Heparin -) 5,000 unit SQ TID [facility] Last Admin: 01/14/19 06:25 Dose: 5,000 unit Ceftriaxone Sodium 1 gm/ (Dextrose) 50 mls @ 100 mls/hr IVPB DAILY [facility]; Protocol Doxycycline Hyclate 100 mg/ (Dextrose) 100 mls @ 100 mls/hr IVPB BID [facility] Last Admin: 01/13/19 22:50 Dose: 100 mls/hr Sodium Chloride (Normal Saline -) 1,000 mls @ 75 mls/hr IV ONCE ONE Stop: 01/14/19 13:39 Last Admin: 01/14/19 01:45 Dose: 75 mls/hr Lactobacillus Acidophilus (Bacid -) 1 tab PO DAILY [facility] Latanoprost (Xalatan 0.005% Eye Drops -) 1 drop OU HS [facility] Memantine (Namenda -) 5 mg PO BID [facility] Last Admin: 01/14/19 01:45 Dose: 5 mg Non-Formulary Medication (Vit D3/Folic Acid/B2/B6/B12 [Folgard Tablet]) 1 each PO WEEKLY [facility] - Objective Vital Signs: Vital Signs Temperature 99 F 01/14/19 06:00 Pulse Rate 100 H 01/14/19 06:00 Respiratory Rate 20 01/14/19 06:00 Blood Pressure 125/47 L 01/14/19 06:00 O2 Sat by Pulse Oximetry (%) 97 01/14/19 05:04 Constitutional: Yes: Mild Distress Eyes: Yes: WNL HENT: Yes: WNL Cardiovascular: Yes: Regular Rate and Rhythm Respiratory: Yes: Cough, Diminished Gastrointestinal: Yes: Soft Genitourinary: Yes: WNL Musculoskeletal: Yes: Muscle Weakness Edema: No Peripheral Pulses WNL: Yes Integumentary: Yes: WNL Wound/Incision: Yes: Clean/Dry Neurological: Yes: Pre-Existing Deficit ...Motor Strength: LLE, RLE Psychiatric: Yes: WNL Labs: CBC, BMP 01/13/19 15:05 01/13/19 15:05 INR, PTT INR 1.32 (0.83-1.09) H 01/13/19 15:05 Problem List - Problems (1) Toxic metabolic encephalopathy Code(s): G92 - TOXIC ENCEPHALOPATHY (2) Toxic metabolic encephalopathy Code(s): G92 - TOXIC ENCEPHALOPATHY (3) Abnormal LFTs Code(s): R94.5 - ABNORMAL RESULTS OF LIVER FUNCTION STUDIES (4) Allergy to multiple antibiotics Code(s): Z88.1 - ALLERGY STATUS TO OTHER ANTIBIOTIC AGENTS STATUS (5) Pneumonia Code(s): J18.9 - PNEUMONIA, UNSPECIFIED ORGANISM (6) Acute kidney injury Code(s): N17.9 - ACUTE KIDNEY FAILURE, UNSPECIFIED (7) Anemia Code(s): D64.9 - ANEMIA, UNSPECIFIED Qualifiers: Other causes of anemia: chronic disease, other (8) Confusion Code(s): R41.0 - DISORIENTATION, UNSPECIFIED Assessment/Plan IV ABX NEBS PULM CONSULT OOB TO CHAIR CHECK CX DVT PROPHYLAXIS PT EVAL
[2019-01-14 09:11] LABS: HEMOGLOBIN 10.6 GM/dL (10.7-15.3); MCH 29.1 pg (25.7-33.7); MCHC 34.1 g/dl (32.0-36.0); MEAN CELL VOLUME 85.3 fl (80-96); MEAN PLT VOLUME 8.6 fl (7.5-11.1); PLATELET COUNT 174 K/MM3 (134-434); RBC 3.64 M/mm3 (3.60-5.2); RDW 15.2 % (11.6-15.6); WHITE BLOOD COUNT 10.1 K/mm3 (4.0-10.0)
[2019-01-14 09:13] LABS: ALBUMIN 2.4 g/dl (3.4-5.0); BILIRUBIN,TOTAL 1.1 mg/dL (0.2-1); BLOOD UREA NITROGEN 9.3 mg/dL (7-18); CALCIUM 8.1 mg/dL (8.5-10.1); CREATININE 0.6 mg/dL (0.55-1.3); MAGNESIUM 2.1 mg/dL (1.8-2.4); POTASSIUM 3.3 mmol/L (3.5-5.1); TOT PROT 4.8 g/dl (6.4-8.2)
[2019-01-14] MEDS ORDERED: cefTRIAXone SODIUM 1 GM VIAL ONE (10:05)
[2019-01-14] MEDS ORDERED: PT OWN MED DRAWER 7, Y5N ONE ×2 (10:05→21:29)
[2019-01-14] MEDS ORDERED: DEXTROSE 5%-WATER - 50 ML IVPB ONE (10:06)
--- NOTE | 2019-01-14 10:08 | CON.PULM ---
Consult Consult Specialty:: PULMONARY Referred by:: Dr Kinsey Reason for Consultation:: pneumonia - History of Present Illness Chief Complaint: cough History of Present Illness: 83yo female with h/o hypothyroidism, Non-Hodgkins's Lymphoma who was admitted for generalized weakness and cough. She denies any shortness of breath. No fevers, chills or sweats. Cough is nonproductive. She does report some right sided back pain with deep inspirations. No recent travel or sick contacts. Found to have a RLL infiltrate on CXR. She had a CXR 2 days prior which also showed a RLL infiltrate but she is unable to tell me why she had the CXR and states she was not placed on antibiotics. - History Source History Provided By: Patient, Medical Record Limitations to Obtaining History: Poor Historian - Past Medical History Pulmonary: Yes: COPD ...: No - Past Surgical History Past Surgical History: Yes: Appendectomy - Alcohol/Substance Use Hx Alcohol Use: No History of Substance Use: reports: None - Smoking History Smoking history: Never smoked Have you smoked in the past 12 months: No If you are a former smoker, when did you quit?: 60 YRS AGO - Social History Usual Living Arrangement: Alone () Home Medications - Allergies Allergies/Adverse Reactions: Allergies Allergy/AdvReac Type Severity Reaction Status Date / Time azithromycin Allergy Unknown Verified 01/13/19 13:09 levofloxacin [From Levaquin] AdvReac Severe Verified 01/13/19 13:09 - Home Medications Home Medications: Ambulatory Orders L.acidoph,Paracasei, B.lactis [Probiotic] 1 each PO HS 04/11/17 Aspirin [Aspirin EC] 81 mg PO Q2D 06/26/17 Bimatoprost [Lumigan] 1 drop OU HS 12/11/17 B Complex C 11/Calcium/Dha/Q10 [Brain Evmxr-Sqi-Vh Q10 Tablet] 1 each PO DAILY 01/13/19 Donepezil HCl 10 mg PO DAILY 01/13/19 Memantine HCl [Namenda -] 5 mg PO BID 01/13/19 Vit D3/Folic Acid/B2/B6/B12 [Folgard Tablet] 1 each PO WEEKLY 01/13/19 Review of Systems - Review of Systems Constitutional: reports: Weakness. denies: Chills, Fever Eyes: denies: Recent Change in Vision HENT: denies: Nasal Congestion, Throat Pain Neck: denies: Stiffness, Tenderness Cardiovascular: denies: Chest Pain, Palpitations, Shortness of Breath Respiratory: reports: Cough. denies: Hemoptysis, Wheezing Gastrointestinal: denies: Abdominal Pain, Nausea, Vomiting Genitourinary: denies: Dysuria, Hematuria Musculoskeletal: reports: Back Pain Neurological: denies: Dizziness, Headache Endocrine: denies: Unexplained Weight Loss Physical Exam Vital Sings: Vital Signs Temperature 99 F 01/14/19 06:00 Pulse Rate 100 H 01/14/19 06:00 Respiratory Rate 20 01/14/19 06:00 Blood Pressure 125/47 L 01/14/19 06:00 O2 Sat by Pulse Oximetry (%) 97 01/14/19 05:04 Constitutional: Yes: Calm Eyes: Yes: Conjunctiva Clear, EOM Intact HENT: Yes: Atraumatic, Normocephalic Neck: Yes: Supple, Trachea Midline Cardiovascular: Yes: Regular Rate and Rhythm Respiratory: Yes: Rales (right base) ...Clubbing: No Gastrointestinal: Yes: Normal Bowel Sounds, Soft. No: Tenderness Edema: No Neurological: Yes: Alert, Oriented Labs: CBC, BMP 01/14/19 06:48 01/14/19 06:48 Imaging - Results Chest X-ray: Report Reviewed, Image Reviewed (RLL infiltrate) Problem List - Problems (1) Pneumonia Code(s): J18.9 - PNEUMONIA, UNSPECIFIED ORGANISM Assessment/Plan Pneumonia Non-Hodgkins Lymphoma Elevated LFTs Hypothyroidism - agree with antibiotic coverage - send urinary antigens - f/u cultures - O2 as needed - will need outpt f/u of CXR in 6-8 weeks to ensure resolution of infiltrates - DVT prophylaxis Thank you for this consult Víctor Zayas MD
[2019-01-14] MEDS: DONEPEZIL HCL 10 MG TABLET (FP) PO SCH (10:09)
[2019-01-14] MEDS: ASPIRIN COATED 81 MG TABLET.EC PO SCH (10:09)
[2019-01-14] MEDS: LACTOBACILLUS ACIDOPHILUS 1 TABLET PO SCH (10:09)
[2019-01-14] MEDS: CEFTRIAXONE 1 GM in DEXTROSE 5%-WATER - 50 ML IVPB SCH (11:05)
[2019-01-14] MEDS: DOXYCYCLINE INJECTION 100 MG in DEXTROSE 5%-WATER - 100 ML IVPB SCH ×2 (11:37→21:31)
--- NOTE | 2019-01-14 13:34 | CON.ID ---
Consult Referred by:: dr eagle Reason for Consultation:: pneumonia - History of Present Illness Chief Complaint: cough History of Present Illness: dry cough for two weeks no fevers at home no travel history of NHL has complete treatment months ago per family she is a poor historian and quite forgetful- neice at bedside confirms this is her baseline MS she is unaware of the nature of her antibiotic allergies - History Source History Provided By: Family Member, Medical Record Limitations to Obtaining History: Clinical Condition - Past Medical History Pulmonary: Yes: COPD ...: No Heme/Onc: Yes: Cancer (NHL) Endocrine: Yes: Hypothyroidism - Past Surgical History Past Surgical History: Yes: Appendectomy - Alcohol/Substance Use Hx Alcohol Use: No History of Substance Use: reports: None - Smoking History Smoking history: Former smoker Have you smoked in the past 12 months: No If you are a former smoker, when did you quit?: 60 YRS AGO - Social History Usual Living Arrangement: Alone () ADL: Independent 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 Place of : [facility] [employer] History of Recent Travel: No Home Medications - Allergies Allergies/Adverse Reactions: Allergies Allergy/AdvReac Type Severity Reaction Status Date / Time azithromycin Allergy Unknown Verified 01/13/19 13:09 levofloxacin [From Levaquin] AdvReac Severe Verified 01/13/19 13:09 - Home Medications Home Medications: Ambulatory Orders L.acidoph,Paracasei, B.lactis [Probiotic] 1 each PO HS 04/11/17 Aspirin [Aspirin EC] 81 mg PO Q2D 06/26/17 Bimatoprost [Lumigan] 1 drop OU HS 12/11/17 B Complex C 11/Calcium/Dha/Q10 [Brain Ayynv-Hsd-Pu Q10 Tablet] 1 each PO DAILY 01/13/19 Donepezil HCl 10 mg PO DAILY 01/13/19 Memantine HCl [Namenda -] 5 mg PO BID 01/13/19 Vit D3/Folic Acid/B2/B6/B12 [Folgard Tablet] 1 each PO WEEKLY 01/13/19 Family Disease History - Family Disease History Family History: Unable to Obtain Review of Systems - Review of Systems Constitutional: denies: Chills, Fever Eyes: reports: No Symptoms HENT: reports: No Symptoms Neck: reports: No Symptoms Cardiovascular: reports: No Symptoms Respiratory: reports: Cough. denies: SOB, Wheezing Gastrointestinal: reports: No Symptoms. denies: Abdominal Pain, Bloating, Constipation Genitourinary: reports: No Symptoms Breasts: reports: No Symptoms Reported Musculoskeletal: reports: No Symptoms Integumentary: reports: No Symptoms Neurological: reports: No Symptoms Endocrine: reports: No Symptoms Hematology/Lymphatic: reports: No Symptoms Psychiatric: reports: No Symptoms Physical Exam Vital Signs: Vital Signs Temperature 98.8 F 01/14/19 08:00 Pulse Rate 93 H 01/14/19 08:00 Respiratory Rate 20 01/14/19 08:00 Blood Pressure 119/64 01/14/19 08:00 O2 Sat by Pulse Oximetry (%) 94 L 01/14/19 09:00 Constitutional: Yes: No Distress, Thin Eyes: Yes: Conjunctiva Clear, EOM Intact HENT: Yes: Atraumatic, Normocephalic. No: Thrush Neck: Yes: Supple, Trachea Midline Cardiovascular: Yes: Regular Rate and Rhythm Respiratory: Yes: Other (crackles right base) Gastrointestinal: Yes: Normal Bowel Sounds, Soft. No: Tenderness ...Rectal Exam: Yes: Deferred Renal/: No: Bladder Distention, CVA Tenderness - Left, CVA Tenderness - Right Musculoskeletal: Yes: WNL Extremities: Yes: WNL Edema: No Neurological: Yes: Alert Labs: CBC, BMP 01/14/19 06:48 01/14/19 06:48 cultures pending Laboratory Tests 01/14/19 06:48 Total Bilirubin 1.1 H AST 94 H ALT 200 H Alkaline Phosphatase 154 H Imaging - Results Chest X-ray: Report Reviewed, Image Reviewed (RLL infiltrate) Problem List - Problems (1) Pneumonia Code(s): J18.9 - PNEUMONIA, UNSPECIFIED ORGANISM (2) Non Hodgkin's lymphoma Code(s): C85.90 - NON-HODGKIN LYMPHOMA, UNSPECIFIED, UNSPECIFIED SITE (3) Abnormal LFTs Code(s): R94.5 - ABNORMAL RESULTS OF LIVER FUNCTION STUDIES (4) Allergy to multiple antibiotics Code(s): Z88.1 - ALLERGY STATUS TO OTHER ANTIBIOTIC AGENTS STATUS Assessment/Plan continue rocephin and doxycycline f/u cultures f/u urinary antigens history NHL- no current chemo abnl lfts- check ultrasound
[2019-01-14] MEDS ORDERED: POTASSIUM CHLORIDE TABS 10 MEQ TABLET.ER (FP) PO ONE (17:18)
--- NOTE | 2019-01-14 18:03 | CON.CARD ---
Consult Consult Specialty:: Cardiology Referred by:: Dr. Darryn Kinsey - History of Present Illness History of Present Illness: Chief Complaint: 1. Nonproductive cough. 2. Loss of appetite. is 83-year-old white female who was admitted to the hospital with history of hacking cough without expectoration and loss of appetite. She denies having dyspnea either at rest or with exertion, no history paroxysmal nocturnal dyspnea or orthopnea. No history of chest pain or discomfort either at rest or with exertion. She denies having weakness but did notice that she felt cold, there was no history of chills, fevers, or night sweats. 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 She also has history of keratoconjunctivitis Liset and xerostomia. 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 History of mild dementia. No history of hypertension, diabetes mellitus, or hypercholesterolemia. Past History: 1. As mentioned in the history of present illness. 2. History of diverticulosis/diverticulitis. 3. Glaucoma. 4. GERD. 5. History of rheumatic fever as a child. 6. According previous visit, patient has suffered a cerebral vascular event, type uncertain. Surgical History: 1. Status post tonsillectomy. 2. Status post right exemplary lymph node biopsy. Social History: She is a , she is retired. Has no children. Smoked a few cigarettes socially from the early 20s and does not recall when she stopped. Social glass of wine. Drinks 3 cups of coffee per day. No history of drug use. Family History: Patient recalls that her father at age 82 of sudden related to a heart attack. Mother at the age of 97 of natural causes. Had 3 sisters, the elder sister at the age of 37 years of unknown cause. The other 2 sisters are alive and one of them is a diabetic, as noted in the past history. He has 2 brothers and one brother is known to have a lymphoma. Active Medications Albuterol/Ipratropium (Duoneb -) 1 amp NEB Q4H PRN PRN Reason: SHORTNESS OF BREATH Aspirin (Ecotrin -) 81 mg PO Q2D [facility] Last Admin: 01/14/19 10:09 Dose: 81 mg Donepezil HCl (Aricept -) 10 mg PO DAILY [facility] Last Admin: 01/14/19 10:09 Dose: 10 mg Heparin Sodium (Porcine) (Heparin -) 5,000 unit SQ TID [facility] Last Admin: 01/14/19 14:15 Dose: 5,000 unit Ceftriaxone Sodium 1 gm/ (Dextrose) 50 mls @ 100 mls/hr IVPB DAILY [facility]; Protocol Last Admin: 01/14/19 11:05 Dose: 100 mls/hr Doxycycline Hyclate 100 mg/ (Dextrose) 100 mls @ 100 mls/hr IVPB BID [facility] Last Admin: 01/14/19 11:37 Dose: 100 mls/hr Lactobacillus Acidophilus (Bacid -) 1 tab PO DAILY [facility] Last Admin: 01/14/19 10:09 Dose: 1 tab Latanoprost (Xalatan 0.005% Eye Drops -) 1 drop OU HS [facility] Memantine (Namenda -) 5 mg PO BID [facility] Last Admin: 01/14/19 10:10 Dose: 5 mg Non-Formulary Medication (Vit D3/Folic Acid/B2/B6/B12 [Folgard Tablet]) 1 each PO WEEKLY [facility] Allergies as Documented in the Chart: 1. Azithromycin 2. Levofloxacin Review of Systems: Constitutional: No history of chills, fever or night sweats. No history of unintentional weight loss. HEENT: No history of headaches, history of recent blurred vision, no history of diplopia. History of glaucoma. History of xerostomia and keratoconjunctivitis liset was several years. No history of epistaxis, hoarseness, tinnitus or deafness. Respiratory: See history of present illness. Apparently patient has a history of pulmonary nodule. No history of cough expectoration or hemoptysis. No history of tuberculosis. Cardiovascular: See history of present illness. Gastrointestinal: Loss of appetite. No history of recent nausea, vomiting, melena or hematemesis. History of diverticulosis and bouts of diverticulitis as documented in the previous records. No history of abdominal pain or change in bowel habits Genitourinary: No history of dysuria, frequency or hematuria. Musculoskeletal: No history of myalgias or arthralgias. Endocrine: No history of polyuria or polydipsia, no history of intolerance to cold or warm weather. 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 History of dementia. No history of focal weakness, lightheadedness, dizziness, presyncope or syncope. No history of seizures. Hematological/lymphatics: No history of anemia ecchymosis or bleeding. See history of present illness. Physical Examination: 83-year-old female was in no acute distress, no pallor, cyanosis, clubbing or jaundice. Last Vital Signs Temp Pulse Resp BP Pulse Ox 98.2 F 98 H 20 132/89 94 L 01/14/19 17:30 01/14/19 17:30 01/14/19 17:30 01/14/19 17:30 01/14/19 09:00 HEENT: Normocephalic, pupils were equal and reacting to light and accommodation , no scleral icterus or conjunctival pallor, no xanthelasmas or arcus senilis. Neck: Supple, no jugular venous distention, carotids were 2+, upstrokes were normal, no bruits were heard and no thyromegaly was present. No supraclavicular or submandibular lymphadenopathy was appreciated. Heart: PMI was in the fifth intercostal space, no heaves or thrills, S1 and S2 were normal. Ejection systolic murmur grade II/ was heard at the second right intercostal space, along the left sternal border ending in early to mid systole. Systolic murmur was also heard at the apex and was poorly radiating. No diastolic murmur or gallops were heard. Lungs: Clear on auscultation. Chest: Normal AP diameter, expansion was symmetrical. Abdomen: Soft, nontender. No hepatosplenomegaly or palpable masses were felt. Bowel sounds were present, no bruits were heard. Extremities: No calf tenderness or dependent edema, pulses were equal posterior tibial pulses except posterior tibial pulses were weak. ECG: Dated 01/13/19 14:18 Sinus rhythm with intra-atrial conduction abnormality, non-specific T-wave abnormalities. Baseline artifacts recorded in limb leads. No previous ECG available for comparison. 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 Remainder of the study is unchanged. Correlation recommended. IMPRESSION: 1. Nonproductive cough associated with loss of appetite and right lower lobe pulmonary infiltrate etiology: a). Secondary to pneumonia. b). Tumor/lymphoma should be excluded. 2. History of lymphoma, status post chemotherapy. 3.Xerostomia and keratoconjunctivitis Liset, etiology to be determined, Sjgren syndrome needs exclusion. 4. History of forgetfulness post probably related to dementia. 5. History of cerebrovascular events (as noted in the previous visit). 6. Systolic murmur compatible with aortic valvular disease, most likely aortic valve sclerosis, aortic stenosis needs to be excluded. 7. Abnormal liver function test. 8. Hypokalemia. RECOMMENDATIONS: 1. Echocardiogram. 2. Consider CT scan of the chest. 3. Patient should have collagen workup in view of xerostomia and keratoconjunctivitis Liset. 4. Evaluation of abnormal liver function test. 5. BNP, BMP, and CBC. 6. Correction of hypokalemia. 7. Further suggestions will depend upon the results of the above-mentioned tests test and will determine if she requires further investigations. Prognosis: Guarded. Thank you for your referral. 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 History of Recent Travel: No Home Medications - Allergies Allergies/Adverse Reactions: Allergies Allergy/AdvReac Type Severity Reaction Status Date / Time azithromycin Allergy Unknown Verified 01/13/19 13:09 levofloxacin [From Levaquin] AdvReac Severe Verified 01/13/19 13:09 - Home Medications Home Medications: Ambulatory Orders L.acidoph,Paracasei, B.lactis [Probiotic] 1 each PO HS 04/11/17 Aspirin [Aspirin EC] 81 mg PO Q2D 06/26/17 Bimatoprost [Lumigan] 1 drop OU HS 12/11/17 B Complex C 11/Calcium/Dha/Q10 [Brain Qvifk-Iua-Cy Q10 Tablet] 1 each PO DAILY 01/13/19 Donepezil HCl 10 mg PO DAILY 01/13/19 Memantine HCl [Namenda -] 5 mg PO BID 01/13/19 Vit D3/Folic Acid/B2/B6/B12 [Folgard Tablet] 1 each PO WEEKLY 01/13/19 Vital Signs: Vital Signs Temperature 98.2 F 01/14/19 17:30 Pulse Rate 98 H 01/14/19 17:30 Respiratory Rate 20 01/14/19 17:30 Blood Pressure 132/89 01/14/19 17:30 O2 Sat by Pulse Oximetry (%) 94 L 01/14/19 09:00 - Other Data Labs, Other Data: CBC, BMP 01/14/19 06:48 01/14/19 06:48 INR, PTT INR 1.32 (0.83-1.09) H 01/13/19 15:05
[2019-01-14] MEDS ORDERED: PATIENT'S OWN MEDICATION (NON-FORMULARY) (Bimatoprost [Lumigan] 1 DROP) OU SCH (22:00)
[2019-01-14] MEDS ORDERED: PATIENT'S OWN MEDICATION (NON-FORMULARY) (L.Acidoph,Paracasei, B.Lactis [Probiotic] 1 EACH PO SCH (22:00)
[2019-01-14] MEDS: LATANOPROST 0.005% OPHTH SOLN 2.5ML BOTTLE OU SCH (22:25)
[2019-01-15] MEDS: HEPARIN NA (PORCINE) 5,000 UNITS/ML 1ML VIAL SQ SCH ×3 (05:51→22:15)
[2019-01-15 08:09] LABS: HEMATOCRIT 31.5 % (32.4-45.2); HEMOGLOBIN 10.9 GM/dL (10.7-15.3); MCH 29.6 pg (25.7-33.7); MCHC 34.5 g/dl (32.0-36.0); MEAN CELL VOLUME 85.8 fl (80-96); MEAN PLT VOLUME 8.2 fl (7.5-11.1); PLATELET COUNT 189 K/MM3 (134-434); RBC 3.67 M/mm3 (3.60-5.2); RDW 15.5 % (11.6-15.6); WHITE BLOOD COUNT 7.1 K/mm3 (4.0-10.0)
--- NOTE | 2019-01-15 08:26 | PN ---
Progress Note, Physician Chief Complaint: AWAKE ALERT FEELING BETTER - Current Medication List Current Medications: Active Medications Albuterol/Ipratropium (Duoneb -) 1 amp NEB Q4H PRN PRN Reason: SHORTNESS OF BREATH Aspirin (Ecotrin -) 81 mg PO Q2D [facility] Last Admin: 01/14/19 10:09 Dose: 81 mg Donepezil HCl (Aricept -) 10 mg PO DAILY [facility] Last Admin: 01/14/19 10:09 Dose: 10 mg Heparin Sodium (Porcine) (Heparin -) 5,000 unit SQ TID [facility] Last Admin: 01/15/19 05:51 Dose: 5,000 unit Ceftriaxone Sodium 1 gm/ (Dextrose) 50 mls @ 100 mls/hr IVPB DAILY [facility]; Protocol Last Admin: 01/14/19 11:05 Dose: 100 mls/hr Doxycycline Hyclate 100 mg/ (Dextrose) 100 mls @ 100 mls/hr IVPB BID [facility] Last Admin: 01/14/19 21:31 Dose: 100 mls/hr Lactobacillus Acidophilus (Bacid -) 1 tab PO DAILY [facility] Last Admin: 01/14/19 10:09 Dose: 1 tab Latanoprost (Xalatan 0.005% Eye Drops -) 1 drop OU HS [facility] Last Admin: 01/14/19 22:25 Dose: 1 drop Memantine (Namenda -) 5 mg PO BID [facility] Last Admin: 01/14/19 21:32 Dose: 5 mg Non-Formulary Medication (Vit D3/Folic Acid/B2/B6/B12 [Folgard Tablet]) 1 each PO WEEKLY [facility] - Objective Vital Signs: Vital Signs Temperature 98.2 F 01/15/19 06:00 Pulse Rate 91 H 01/15/19 06:00 Respiratory Rate 20 01/15/19 06:00 Blood Pressure 122/53 L 01/15/19 06:00 O2 Sat by Pulse Oximetry (%) 94 L 01/14/19 21:00 Constitutional: Yes: No Distress Cardiovascular: Yes: Regular Rate and Rhythm Respiratory: Yes: Diminished, On Nasal O2 Gastrointestinal: Yes: WNL, Soft Musculoskeletal: Yes: WNL Extremities: Yes: WNL Edema: No Labs: INR, PTT INR 1.32 (0.83-1.09) H 01/13/19 15:05 Problem List - Problems (1) Toxic metabolic encephalopathy Code(s): G92 - TOXIC ENCEPHALOPATHY (2) Toxic metabolic encephalopathy Code(s): G92 - TOXIC ENCEPHALOPATHY (3) Abnormal LFTs Code(s): R94.5 - ABNORMAL RESULTS OF LIVER FUNCTION STUDIES (4) Allergy to multiple antibiotics Code(s): Z88.1 - ALLERGY STATUS TO OTHER ANTIBIOTIC AGENTS STATUS (5) Pneumonia Code(s): J18.9 - PNEUMONIA, UNSPECIFIED ORGANISM (6) Acute kidney injury Code(s): N17.9 - ACUTE KIDNEY FAILURE, UNSPECIFIED (7) Anemia Code(s): D64.9 - ANEMIA, UNSPECIFIED Qualifiers: Other causes of anemia: chronic disease, other (8) Confusion Code(s): R41.0 - DISORIENTATION, UNSPECIFIED Assessment/Plan [facility] 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
[2019-01-15 08:34] LABS: ALBUMIN 2.4 g/dl (3.4-5.0); BILIRUBIN,TOTAL 0.4 mg/dL (0.2-1); CALCIUM 8.8 mg/dL (8.5-10.1); CREATININE 0.6 mg/dL (0.55-1.3); MAGNESIUM 2.2 mg/dL (1.8-2.4); POTASSIUM 3.7 mmol/L (3.5-5.1)
[2019-01-15] MEDS ORDERED: DEXTROSE 5%-WATER - 50 ML IVPB ONE (09:09)
[2019-01-15] MEDS ORDERED: PT OWN MED DRAWER 7, Y5N ONE (09:09)
[2019-01-15] MEDS ORDERED: cefTRIAXone SODIUM 1 GM VIAL ONE (09:09)
[2019-01-15] MEDS: MEMANTINE HCL 5 MG TABLET (UD) PO SCH ×2 (09:12→22:15)
[2019-01-15] MEDS: LACTOBACILLUS ACIDOPHILUS 1 TABLET PO SCH (09:12)
[2019-01-15] MEDS: DONEPEZIL HCL 10 MG TABLET (FP) PO SCH (09:12)
[2019-01-15] MEDS: CEFTRIAXONE 1 GM in DEXTROSE 5%-WATER - 50 ML IVPB SCH (09:12)
--- NOTE | 2019-01-15 09:52 | PN ---
Progress Note (short form) - Note Progress Note: PULMONARY Denies shortness of breath, cough or fevers. Vital Signs Period Temp Pulse Resp BP Sys/Huff Pulse Ox Last 24 Hr 98 F-99.1 F 91-98 18-20 122-132/53-89 94 Gen: NAD at rest Heart: RRR Lung: right base rales Abd: soft, nontender Ext: no edema CBC, BMP 01/15/19 06:16 01/15/19 06:16 Active Medications Albuterol/Ipratropium (Duoneb -) 1 amp NEB Q4H PRN PRN Reason: SHORTNESS OF BREATH Aspirin (Ecotrin -) 81 mg PO Q2D [facility] Last Admin: 01/14/19 10:09 Dose: 81 mg Donepezil HCl (Aricept -) 10 mg PO DAILY [facility] Last Admin: 01/15/19 09:12 Dose: 10 mg Heparin Sodium (Porcine) (Heparin -) 5,000 unit SQ TID [facility] Last Admin: 01/15/19 05:51 Dose: 5,000 unit Ceftriaxone Sodium 1 gm/ (Dextrose) 50 mls @ 100 mls/hr IVPB DAILY [facility]; Protocol Last Admin: 01/15/19 09:12 Dose: 100 mls/hr Doxycycline Hyclate 100 mg/ (Dextrose) 100 mls @ 100 mls/hr IVPB BID [facility] Last Admin: 01/14/19 21:31 Dose: 100 mls/hr Lactobacillus Acidophilus (Bacid -) 1 tab PO DAILY [facility] Last Admin: 01/15/19 09:12 Dose: 1 tab Latanoprost (Xalatan 0.005% Eye Drops -) 1 drop OU HS [facility] Last Admin: 01/14/19 22:25 Dose: 1 drop Memantine (Namenda -) 5 mg PO BID [facility] Last Admin: 01/15/19 09:12 Dose: 5 mg Non-Formulary Medication (Vit D3/Folic Acid/B2/B6/B12 [Folgard Tablet]) 1 each PO WEEKLY [facility] A/P Pneumonia Non-Hodgkins Lymphoma Elevated LFTs Hypothyroidism - continue antibiotics - f/u cultures - O2 as needed - monitor LFTs - will need outpt f/u of CXR in 6-8 weeks to ensure resolution of infiltrates - DVT prophylaxis Problem List - Problems (1) Pneumonia Code(s): J18.9 - PNEUMONIA, UNSPECIFIED ORGANISM
[2019-01-15] MEDS: DOXYCYCLINE INJECTION 100 MG in DEXTROSE 5%-WATER - 100 ML IVPB SCH ×2 (09:57→22:15)
--- NOTE | 2019-01-15 14:20 | PN ---
Progress Note (short form) - Note Progress Note: is 83-year-old white female who was admitted to the hospital with history of hacking cough without expectoration and loss of appetite. She denies having dyspnea either at rest or with exertion, no history paroxysmal nocturnal dyspnea or orthopnea. No history of chest pain or discomfort either at rest or with exertion. She denies having weakness but did notice that she felt cold, there was no history of chills, fevers, or night sweats. 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 She also has history of keratoconjunctivitis Tyler and xerostomia. 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 History of mild dementia. No history of hypertension, diabetes mellitus, or hypercholesterolemia. Patient states cough is less pronounced, remains afebrile., C/o pleuritic right posterior basal chestb pain. Active Medications Generic Name Dose Route Start Last Admin Trade Name Freq PRN Reason Stop Dose Admin Albuterol/Ipratropium 1 amp 01/14/19 00:13 Duoneb - NEB Q4H PRN SHORTNESS OF BREATH Aspirin 81 mg 01/14/19 10:00 01/14/19 10:09 Ecotrin - PO 81 mg Q2D [facility] Administration Donepezil HCl 10 mg 01/14/19 10:00 01/15/19 09:12 Aricept - PO 10 mg DAILY [facility] Administration Heparin Sodium (Porcine) 5,000 unit 01/14/19 06:00 01/15/19 13:36 Heparin - SQ 5,000 unit TID [facility] Administration Ceftriaxone Sodium 1 gm/ 50 mls @ 100 mls/hr 01/14/19 10:00 01/15/19 09:12 Dextrose IVPB 100 mls/hr DAILY [facility] Administration Protocol Doxycycline Hyclate 100 mg/ 100 mls @ 100 mls/hr 01/13/19 22:00 01/15/19 09: 57 Dextrose IVPB 100 mls/hr BID [facility] Administration Lactobacillus Acidophilus 1 tab 01/14/19 10:00 01/15/19 09:12 Bacid - PO 1 tab DAILY [facility] Administration Latanoprost 1 drop 01/14/19 22:00 01/14/19 22:25 Xalatan 0.005% Eye Drops - OU 1 drop HS [facility] Administration Memantine 5 mg 01/13/19 23:00 01/15/19 09:12 Namenda - PO 5 mg BID [facility] Administration Non-Formulary Medication 1 each 01/13/19 23:00 Vit D3/Folic Acid/B2/B6/B12 [Folgard Tablet] PO WEEKLY [facility] Allergies as Documented in the Chart: 1. Azithromycin 2. Levofloxacin Physical Examination: 83-year-old female was in no acute distress, no pallor, cyanosis, clubbing or jaundice. Last Vital Signs Temp Pulse Resp BP Pulse Ox 98.3 F 86 20 113/60 94 L 01/15/19 16:25 01/15/19 16:25 01/15/19 16:25 01/15/19 16:25 01/15/19 09:00 HEENT: Normocephalic, pupils were equal and reacting to light and accommodation , no scleral icterus or conjunctival pallor, no xanthelasmas or arcus senilis. Neck: Supple, no jugular venous distention, carotids were 2+, upstrokes were normal, no bruits were heard and no thyromegaly was present. No supraclavicular or submandibular lymphadenopathy was appreciated. Heart: PMI was in the fifth intercostal space, no heaves or thrills, S1 and S2 were normal. Ejection systolic murmur grade II/ was heard at the second right intercostal space, along the left sternal border ending in early to mid systole. Systolic murmur was also heard at the apex and was poorly radiating. No diastolic murmur or gallops were heard. Lungs: Crepitations at the right base, fine scattered creps left base. Chest: Normal AP diameter, expansion was symmetrical. Abdomen: Soft, nontender. No hepatosplenomegaly or palpable masses were felt. Bowel sounds were present, no bruits were heard. Extremities: No calf tenderness or dependent edema, pulses were equal posterior tibial pulses except posterior tibial pulses were weak. CBC, BMP 01/15/19 06:16 01/15/19 06:16 Chest x-ray Dated: 01/13/19 A single AP view of the chest reveals progressive infiltrate at the right base since 01/11/19. Remainder of the study is unchanged. Correlation recommended. IMPRESSION: 1. Nonproductive cough associated with loss of appetite and right lower lobe pulmonary infiltrate etiology: a). Secondary to pneumonia. b). Tumor/lymphoma should be excluded. 2. History of lymphoma, status post chemotherapy. 3. Xerostomia and keratoconjunctivitis Tyler, etiology to be determined, Sjgren syndrome needs exclusion. 4. History of forgetfulness post probably related to dementia. 5. History of cerebrovascular events (as noted in the previous visit). 6. Systolic murmur compatible with aortic valvular disease, most likely aortic valve sclerosis, aortic stenosis needs to be excluded. 7. Hypokalemia, corrected. 8. Abnormal LFTs. RECOMMENDATIONS: 1. Echocardiogram. 2. Consider CT scan of the chest. 3. Patient should have collagen workup in view of xerostomia and keratoconjunctivitis Tyler. 4. Evaluation of abnormal liver function test. 5. BNP, BMP, and CBC. 6. Evaluation of abnormal LFTs. Prognosis: Guarded. Vinnie Horta MD
--- NOTE | 2019-01-15 17:18 | PN ---
Progress Note (short form) - Note Progress Note: less cough Vital Signs Period Temp Pulse Resp BP Sys/Huff Pulse Ox Last 24 Hr 98 F-98.3 F 79-98 20-20 113-133/53-89 94-94 cor-rrr lungs decreased bs at bases, crackles right base abd soft,nt ext no edema CBC, BMP 01/15/19 06:16 01/15/19 06:16 Microbiology 01/13/19 15:05 Blood - Peripheral Venous Blood Culture - Preliminary NO GROWTH OBTAINED AFTER 48 HOURS, INCUBATION TO CONTINUE FOR 3 DAYS. 01/13/19 15:05 Blood - Peripheral Venous Blood Culture - Preliminary NO GROWTH OBTAINED AFTER 48 HOURS, INCUBATION TO CONTINUE FOR 3 DAYS. 01/13/19 16:30 Urine - Urine Clean Catch Urine Culture - Final Lactose Fermenting Neg Bacilli 01/14/19 11:35 Urine For Antigen Detection Legionella Antigen - Final 01/14/19 11:35 Urine For Antigen Detection Streptococcus pneumoniae Antigen (M - Final Laboratory Tests 01/13/19 01/14/19 15:05 06:48 Total Bilirubin 1.1 H AST 127 H 94 H ALT 252 H 200 H Alkaline Phosphatase 169 H 154 H abdomnal sonogram normal a/p RLL pneumonia- continue rocephin/doxy cultures negative abnormal lfts- sonogram normal, further w/u per PMD history NHL antibiotics allergies noted Problem List - Problems (1) Pneumonia Code(s): J18.9 - PNEUMONIA, UNSPECIFIED ORGANISM (2) Non Hodgkin's lymphoma Code(s): C85.90 - NON-HODGKIN LYMPHOMA, UNSPECIFIED, UNSPECIFIED SITE (3) Abnormal LFTs Code(s): R94.5 - ABNORMAL RESULTS OF LIVER FUNCTION STUDIES (4) Allergy to multiple antibiotics Code(s): Z88.1 - ALLERGY STATUS TO OTHER ANTIBIOTIC AGENTS STATUS
[2019-01-15] MEDS: LATANOPROST 0.005% OPHTH SOLN 2.5ML BOTTLE OU SCH (22:15)
--- NOTE | 2019-01-16 00:14 | PN ---
Progress Note, Physician Chief Complaint: has persistant dry cough with pleuritic pain - Current Medication List Current Medications: Active Medications Albuterol/Ipratropium (Duoneb -) 1 amp NEB Q4H PRN PRN Reason: SHORTNESS OF BREATH Aspirin (Ecotrin -) 81 mg PO Q2D [facility] Last Admin: 01/14/19 10:09 Dose: 81 mg Donepezil HCl (Aricept -) 10 mg PO DAILY [facility] Last Admin: 01/15/19 09:12 Dose: 10 mg Heparin Sodium (Porcine) (Heparin -) 5,000 unit SQ TID [facility] Last Admin: 01/15/19 22:15 Dose: 5,000 unit Ceftriaxone Sodium 1 gm/ (Dextrose) 50 mls @ 100 mls/hr IVPB DAILY [facility]; Protocol Last Admin: 01/15/19 09:12 Dose: 100 mls/hr Doxycycline Hyclate 100 mg/ (Dextrose) 100 mls @ 100 mls/hr IVPB BID [facility] Last Admin: 01/15/19 22:15 Dose: 100 mls/hr Lactobacillus Acidophilus (Bacid -) 1 tab PO DAILY [facility] Last Admin: 01/15/19 09:12 Dose: 1 tab Latanoprost (Xalatan 0.005% Eye Drops -) 1 drop OU HS [facility] Last Admin: 01/15/19 22:15 Dose: 1 drop Memantine (Namenda -) 5 mg PO BID [facility] Last Admin: 01/15/19 22:15 Dose: 5 mg Non-Formulary Medication (Vit D3/Folic Acid/B2/B6/B12 [Folgard Tablet]) 1 each PO WEEKLY [facility] - Objective Vital Signs: Vital Signs Temperature 98.3 F 01/15/19 16:25 Pulse Rate 86 01/15/19 16:25 Respiratory Rate 20 01/15/19 16:25 Blood Pressure 113/60 01/15/19 16:25 O2 Sat by Pulse Oximetry (%) 94 L 01/15/19 09:00 Constitutional: Yes: Anxious Eyes: Yes: EOM Intact HENT: Yes: Normocephalic Neck: Yes: Trachea Midline Cardiovascular: Yes: Regular Rate and Rhythm Respiratory: Yes: Rhonchi, SOB, Tachypnea Gastrointestinal: Yes: Soft ...Rectal Exam: Yes: Deferred Genitourinary: Yes: WNL Musculoskeletal: Yes: WNL Extremities: Yes: WNL Edema: No Neurological: Yes: Alert, Oriented Labs: CBC, BMP 01/15/19 06:16 01/15/19 06:16 INR, PTT INR 1.32 (0.83-1.09) H 01/13/19 15:05 Problem List - Problems (1) Abnormal LFTs Code(s): R94.5 - ABNORMAL RESULTS OF LIVER FUNCTION STUDIES (2) Pneumonia Code(s): J18.9 - PNEUMONIA, UNSPECIFIED ORGANISM (3) Toxic metabolic encephalopathy Code(s): G92 - TOXIC ENCEPHALOPATHY (4) Acute kidney injury Code(s): N17.9 - ACUTE KIDNEY FAILURE, UNSPECIFIED (5) Anemia Code(s): D64.9 - ANEMIA, UNSPECIFIED Qualifiers: Other causes of anemia: chronic disease, other (6) Confusion Code(s): R41.0 - DISORIENTATION, UNSPECIFIED Assessment/Plan Current Active Problems Abnormal LFTs (Acute) Allergy to multiple antibiotics (Acute) Pneumonia (Acute) Toxic metabolic encephalopathy (Acute) Toxic metabolic encephalopathy (Acute) Abnormal Lab Results 01/15/19 01/15/19 06:16 06:16 Hct 31.5 L Chloride 109 H Anion Gap 7 L AST 105 H ALT 227 H Alkaline Phosphatase 171 H Total Protein 5.0 L Albumin 2.4 L Laboratory Tests 01/13/19 01/15/19 15:05 06:16 Calcium 8.8 Phosphorus 2.1 L Magnesium 2.1 2.2 Albumin 2.4 L TSH 1.00 plan: oscal d 500mg /day iv fluid antibiotic per id
[2019-01-16] MEDS: HEPARIN NA (PORCINE) 5,000 UNITS/ML 1ML VIAL SQ SCH ×3 (05:35→21:59)
[2019-01-16 08:48] LABS: ALBUMIN 2.3 g/dl (3.4-5.0); BILIRUBIN,TOTAL 0.3 mg/dL (0.2-1); BLOOD UREA NITROGEN 11.4 mg/dL (7-18); CALCIUM 8.6 mg/dL (8.5-10.1); CREATININE 0.6 mg/dL (0.55-1.3); POTASSIUM 3.5 mmol/L (3.5-5.1); TOT PROT 4.8 g/dl (6.4-8.2)
[2019-01-16] MEDS ORDERED: cefTRIAXone SODIUM 1 GM VIAL ONE (10:26)
[2019-01-16] MEDS ORDERED: DEXTROSE 5%-WATER - 50 ML IVPB ONE (10:26)
[2019-01-16] MEDS ORDERED: PT OWN MED DRAWER 7, Y5N ONE ×2 (10:27→21:26)
[2019-01-16] MEDS: DOXYCYCLINE INJECTION 100 MG in DEXTROSE 5%-WATER - 100 ML IVPB SCH (10:34)
[2019-01-16] MEDS: CEFTRIAXONE 1 GM in DEXTROSE 5%-WATER - 50 ML IVPB SCH (10:34)
[2019-01-16] MEDS: LACTOBACILLUS ACIDOPHILUS 1 TABLET PO SCH (10:34)
[2019-01-16] MEDS: ASPIRIN COATED 81 MG TABLET.EC PO SCH (10:35)
[2019-01-16] MEDS: MEMANTINE HCL 5 MG TABLET (UD) PO SCH ×2 (10:35→21:59)
[2019-01-16] MEDS: DONEPEZIL HCL 10 MG TABLET (FP) PO SCH (10:35)
--- NOTE | 2019-01-16 13:12 | CON.GI ---
Consult Consult Specialty:: Gastroenterology Referred by:: Dr. Mulligan Reason for Consultation:: Elevated LFTs - History of Present Illness Chief Complaint: cough, weakness History of Present Illness: 83yo female h/o non hodgkins lymphoma, hypothyroidism, dementia presenting with cough, weakness and poor po intake asked to evaluate for elevated LFTs. Pt poor historian, reporting worsening cough and weakness prompting hospitalization though does not recall details. Currently reporting poor appetite, though feeling better overall. Denies abdominal pain, n/v. Pt being treated for pneumonia and started on IV ceftriaxone. Also received doxycycline now dc'd. Noted to have elevated LFTs on 01/10/19. Normal LFTs were noted in 2018. No known prior h/o liver disease. Denies etoh use. No known family h/o liver disease or GI malignancy. US abd revealing normal appearing liver and gallbladder with no biliary dilation. 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 History of Recent Travel: No Home Medications - Allergies Allergies/Adverse Reactions: Allergies Allergy/AdvReac Type Severity Reaction Status Date / Time azithromycin Allergy Unknown Verified 01/13/19 13:09 levofloxacin [From Levaquin] AdvReac Severe Verified 01/13/19 13:09 - Home Medications Home Medications: Ambulatory Orders L.acidoph,Paracasei, B.lactis [Probiotic] 1 each PO HS 04/11/17 Aspirin [Aspirin EC] 81 mg PO Q2D 06/26/17 Bimatoprost [Lumigan] 1 drop OU HS 12/11/17 B Complex C 11/Calcium/Dha/Q10 [Brain Ugnel-Slv-Yz Q10 Tablet] 1 each PO DAILY 01/13/19 Donepezil HCl 10 mg PO DAILY 01/13/19 Memantine HCl [Namenda -] 5 mg PO BID 01/13/19 Vit D3/Folic Acid/B2/B6/B12 [Folgard Tablet] 1 each PO WEEKLY 01/13/19 Review of Systems - Review of Systems Constitutional: reports: No Symptoms, Loss of Appetite Cardiovascular: reports: No Symptoms Respiratory: reports: Cough Gastrointestinal: reports: No Symptoms Physical Exam-GI Vital Signs: Vital Signs Temperature 98.8 F 01/16/19 10:00 Pulse Rate 81 01/16/19 10:00 Respiratory Rate 18 01/16/19 10:00 Blood Pressure 102/56 L 01/16/19 10:00 O2 Sat by Pulse Oximetry (%) 94 L 01/15/19 21:00 Constitutional: Yes: Well Nourished, No Distress, Calm, Other (alert and oriented x 3) Cardiovascular: Yes: WNL, Regular Rate and Rhythm Respiratory: Yes: WNL, Regular, Other (decreased A/E bilaterally R>L) Gastrointestinal Inspection: Yes: WNL ...Palpate: Yes: Other (Abd soft, nt, nd) Labs: CBC, BMP 01/15/19 06:16 01/16/19 06:27 INR, PTT INR 1.32 (0.83-1.09) H 01/13/19 15:05 Imaging - Results Ultrasound: Report Reviewed Problem List - Problems (1) Abnormal LFTs Assessment/Plan: 83yo female h/o non hodgkins lymphoma, hypothyroidism, dementia presenting with cough, weakness and poor po intake asked to evaluate for elevated LFTs. Predominantly hepatocellular pattern > cholestatic suspect secondary to medications/antibiotics as timing of elevation appears to be coinciding with antibiotics for treatment of pneumonia (ceftriaxone/doxycycline). US revealing normal appearing liver and gallbladder without biliary dilation. LFTs normal in 10/2018 and no prior h/o liver disease. Other potential etiologies including congestive hepatopathy vs sepsis. -Recommend close LFT monitoring -Repeat coags in am -If continued increase in LFTs would discuss with ID regarding change in antibiotics -Follow up hepatitis panel -Echo per cardio -Will continue to follow Code(s): R94.5 - ABNORMAL RESULTS OF LIVER FUNCTION STUDIES
--- NOTE | 2019-01-16 14:49 | PN ---
Progress Note, Physician History of Present Illness: pulmonary alert,oob-chair,feeling better,less cough - Current Medication List Current Medications: Active Medications Albuterol/Ipratropium (Duoneb -) 1 amp NEB Q4H PRN PRN Reason: SHORTNESS OF BREATH Aspirin (Ecotrin -) 81 mg PO Q2D [facility] Last Admin: 01/16/19 10:35 Dose: 81 mg Donepezil HCl (Aricept -) 10 mg PO DAILY [facility] Last Admin: 01/16/19 10:35 Dose: 10 mg Heparin Sodium (Porcine) (Heparin -) 5,000 unit SQ TID [facility] Last Admin: 01/16/19 05:35 Dose: 5,000 unit Ceftriaxone Sodium 1 gm/ (Dextrose) 50 mls @ 100 mls/hr IVPB DAILY [facility]; Protocol Last Admin: 01/16/19 10:34 Dose: 100 mls/hr Lactobacillus Acidophilus (Bacid -) 1 tab PO DAILY [facility] Last Admin: 01/16/19 10:34 Dose: 1 tab Latanoprost (Xalatan 0.005% Eye Drops -) 1 drop OU HS [facility] Last Admin: 01/15/19 22:15 Dose: 1 drop Memantine (Namenda -) 5 mg PO BID [facility] Last Admin: 01/16/19 10:35 Dose: 5 mg - Objective Vital Signs: Vital Signs Temperature 98.8 F 01/16/19 10:00 Pulse Rate 81 01/16/19 10:00 Respiratory Rate 18 01/16/19 10:00 Blood Pressure 102/56 L 01/16/19 10:00 O2 Sat by Pulse Oximetry (%) 94 L 01/15/19 21:00 Constitutional: Yes: Well Nourished, Calm Eyes: Yes: WNL HENT: Yes: WNL Neck: Yes: WNL Cardiovascular: Yes: Regular Rate and Rhythm, S1, S2 Respiratory: Yes: Rales (few crackles r base) Gastrointestinal: Yes: Normal Bowel Sounds, Soft Extremities: Yes: WNL Edema: No Labs: CBC, BMP 01/16/19 06:27 INR, PTT INR 1.32 (0.83-1.09) H 01/13/19 15:05 Problem List - Problems (1) Abnormal LFTs Code(s): R94.5 - ABNORMAL RESULTS OF LIVER FUNCTION STUDIES (2) Non Hodgkin's lymphoma Code(s): C85.90 - NON-HODGKIN LYMPHOMA, UNSPECIFIED, UNSPECIFIED SITE Assessment/Plan A/P Pneumonia RLL Non-Hodgkins Lymphoma Elevated LFTs Hypothyroidism - continue antibiotics - O2 as needed - monitor LFTs - will need outpt f/u of CXR in 6-8 weeks to ensure resolution of infiltrates - DVT prophylaxis DR MOTT Problem List - Problems (1) Pneumonia Code(s): J18.9 - PNEUMONIA, UNSPECIFIED ORGANISM
--- NOTE | 2019-01-16 15:48 | PN ---
Progress Note (short form) - Note Progress Note: is 83-year-old white female who was admitted to the hospital with history of hacking cough without expectoration and loss of appetite. She denies having dyspnea either at rest or with exertion, no history paroxysmal nocturnal dyspnea or orthopnea. No history of chest pain or discomfort either at rest or with exertion. She denies having weakness but did notice that she felt cold, there was no history of chills, fevers, or night sweats. 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 She also has history of keratoconjunctivitis Tyler and xerostomia. 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 History of mild dementia. No history of hypertension, diabetes mellitus, or hypercholesterolemia. Patient states cough is less pronounced, remains afebrile., C/o pleuritic right posterior basal chestb pain. Active Medications Albuterol/Ipratropium (Duoneb -) 1 amp NEB Q4H PRN PRN Reason: SHORTNESS OF BREATH Aspirin (Ecotrin -) 81 mg PO Q2D [facility] Last Admin: 01/16/19 10:35 Dose: 81 mg Donepezil HCl (Aricept -) 10 mg PO DAILY [facility] Last Admin: 01/16/19 10:35 Dose: 10 mg Heparin Sodium (Porcine) (Heparin -) 5,000 unit SQ TID [facility] Last Admin: 01/16/19 15:17 Dose: 5,000 unit Ceftriaxone Sodium 1 gm/ (Dextrose) 50 mls @ 100 mls/hr IVPB DAILY [facility]; Protocol Last Admin: 01/16/19 10:34 Dose: 100 mls/hr Lactobacillus Acidophilus (Bacid -) 1 tab PO DAILY [facility] Last Admin: 01/16/19 10:34 Dose: 1 tab Latanoprost (Xalatan 0.005% Eye Drops -) 1 drop OU HS [facility] Last Admin: 01/15/19 22:15 Dose: 1 drop Memantine (Namenda -) 5 mg PO BID [facility] Last Admin: 01/16/19 10:35 Dose: 5 mg Allergies as Documented in the Chart: 1. Azithromycin 2. Levofloxacin Physical Examination: 83-year-old female was in no acute distress, no pallor, cyanosis, clubbing or jaundice. Last Vital Signs Temp Pulse Resp BP Pulse Ox 97.1 F L 74 18 101/50 L 94 L 01/16/19 14:00 01/16/19 14:00 01/16/19 14:00 01/16/19 14:00 01/15/19 21:00 HEENT: Normocephalic, pupils were equal and reacting to light and accommodation , no scleral icterus or conjunctival pallor, no xanthelasmas or arcus senilis. Neck: Supple, no jugular venous distention, carotids were 2+, upstrokes were normal, no bruits were heard and no thyromegaly was present. No supraclavicular or submandibular lymphadenopathy was appreciated. Heart: PMI was in the fifth intercostal space, no heaves or thrills, S1 and S2 were normal. Ejection systolic murmur grade II/ was heard at the second right intercostal space, along the left sternal border ending in early to mid systole. Systolic murmur was also heard at the apex and was poorly radiating. No diastolic murmur or gallops were heard. Lungs: Crepitations at the right base, fine scattered creps left base. Chest: Normal AP diameter, expansion was symmetrical. Abdomen: Soft, nontender. No hepatosplenomegaly or palpable masses were felt. Bowel sounds were present, no bruits were heard. Extremities: No calf tenderness or dependent edema, pulses were equal posterior tibial pulses except posterior tibial pulses were weak. CBC, BMP 01/15/19 06:16 01/16/19 06:27 Chest x-ray Dated: 01/13/19 A single AP view of the chest reveals progressive infiltrate at the right base since 01/11/19. Remainder of the study is unchanged. Correlation recommended. IMPRESSION: 1. Nonproductive cough associated with loss of appetite and right lower lobe pulmonary infiltrate etiology: a). Secondary to pneumonia. b). Tumor/lymphoma should be excluded. 2. History of lymphoma, status post chemotherapy. 3. Xerostomia and keratoconjunctivitis Tyler, etiology to be determined, Sjgren syndrome needs exclusion. 4. History of forgetfulness post probably related to dementia. 5. History of cerebrovascular events (as noted in the previous visit). 6. Systolic murmur compatible with aortic valvular disease, most likely aortic valve sclerosis, aortic stenosis needs to be excluded. 7. Hypokalemia, corrected. 8. Abnormal LFTs. RECOMMENDATIONS: 1. Echocardiogram. 2. Consider CT scan of the chest. 3. Patient should have collagen workup in view of xerostomia and keratoconjunctivitis Tyler. 4. Evaluation of abnormal liver function test. 5. BNP, BMP, and CBC. 6. Evaluation of abnormal LFTs. Prognosis: Guarded. Vinnie Horta MD
--- NOTE | 2019-01-16 18:08 | PN ---
Progress Note, Physician Chief Complaint: AWAKE ALERT FEELING BETTER DENIES FEVER CHILLS, NAUSEA - Current Medication List Current Medications: Active Medications Albuterol/Ipratropium (Duoneb -) 1 amp NEB Q4H PRN PRN Reason: SHORTNESS OF BREATH Aspirin (Ecotrin -) 81 mg PO Q2D [facility] Last Admin: 01/16/19 10:35 Dose: 81 mg Donepezil HCl (Aricept -) 10 mg PO DAILY [facility] Last Admin: 01/16/19 10:35 Dose: 10 mg Heparin Sodium (Porcine) (Heparin -) 5,000 unit SQ TID [facility] Last Admin: 01/16/19 15:17 Dose: 5,000 unit Ceftriaxone Sodium 1 gm/ (Dextrose) 50 mls @ 100 mls/hr IVPB DAILY [facility]; Protocol Last Admin: 01/16/19 10:34 Dose: 100 mls/hr Lactobacillus Acidophilus (Bacid -) 1 tab PO DAILY [facility] Last Admin: 01/16/19 10:34 Dose: 1 tab Latanoprost (Xalatan 0.005% Eye Drops -) 1 drop OU HS [facility] Last Admin: 01/15/19 22:15 Dose: 1 drop Memantine (Namenda -) 5 mg PO BID [facility] Last Admin: 01/16/19 10:35 Dose: 5 mg - Objective Vital Signs: Vital Signs Temperature 97.7 F 01/16/19 16:30 Pulse Rate 72 01/16/19 16:30 Respiratory Rate 18 01/16/19 16:30 Blood Pressure 116/65 01/16/19 16:30 O2 Sat by Pulse Oximetry (%) 94 L 01/15/19 21:00 Constitutional: Yes: No Distress Cardiovascular: Yes: Regular Rate and Rhythm Gastrointestinal: Yes: WNL Genitourinary: Yes: WNL Musculoskeletal: Yes: WNL Edema: No Integumentary: Yes: WNL Wound/Incision: Yes: Clean/Dry Neurological: Yes: WNL ...Motor Strength: WNL Psychiatric: Yes: WNL Labs: CBC, BMP 01/15/19 06:16 01/16/19 06:27 INR, PTT INR 1.32 (0.83-1.09) H 01/13/19 15:05 Problem List - Problems (1) Toxic metabolic encephalopathy Code(s): G92 - TOXIC ENCEPHALOPATHY (2) Toxic metabolic encephalopathy Code(s): G92 - TOXIC ENCEPHALOPATHY (3) Abnormal LFTs Code(s): R94.5 - ABNORMAL RESULTS OF LIVER FUNCTION STUDIES (4) Allergy to multiple antibiotics Code(s): Z88.1 - ALLERGY STATUS TO OTHER ANTIBIOTIC AGENTS STATUS (5) Pneumonia Code(s): J18.9 - PNEUMONIA, UNSPECIFIED ORGANISM (6) Acute kidney injury Code(s): N17.9 - ACUTE KIDNEY FAILURE, UNSPECIFIED (7) Anemia Code(s): D64.9 - ANEMIA, UNSPECIFIED Qualifiers: Other causes of anemia: chronic disease, other (8) Confusion Code(s): R41.0 - DISORIENTATION, UNSPECIFIED Assessment/Plan SONO LIVER NO ACUTE CHANGES HEPATITIS PANEL PENDING MONITOR LFT IV ABX/NEBS/02 SUPPORT STOP DOXYCYCLINE DVT PROPHYLAXIS
--- NOTE | 2019-01-16 18:19 | PN ---
Progress Note (short form) - Note Progress Note: 83-year-old white female who was admitted to the hospital with history of hacking cough, no h/o expectoration, H/o loss of appetite. She denies having dyspnea either at rest or with exertion, no history paroxysmal nocturnal dyspnea or orthopnea. No history of chest pain or discomfort either at rest or with exertion. States cough is less pronounced and no further pleuritic right lower chest discomfort. Patient states cough is less pronounced, remains afebrile.,C/o pleuritic right posterior basal chest pain. Active Medications Albuterol/Ipratropium (Duoneb -) 1 amp NEB Q4H PRN PRN Reason: SHORTNESS OF BREATH Aspirin (Ecotrin -) 81 mg PO Q2D [facility] Last Admin: 01/16/19 10:35 Dose: 81 mg Donepezil HCl (Aricept -) 10 mg PO DAILY [facility] Last Admin: 01/16/19 10:35 Dose: 10 mg Heparin Sodium (Porcine) (Heparin -) 5,000 unit SQ TID [facility] Last Admin: 01/16/19 15:17 Dose: 5,000 unit Ceftriaxone Sodium 1 gm/ (Dextrose) 50 mls @ 100 mls/hr IVPB DAILY [facility]; Protocol Last Admin: 01/16/19 10:34 Dose: 100 mls/hr Lactobacillus Acidophilus (Bacid -) 1 tab PO DAILY [facility] Last Admin: 01/16/19 10:34 Dose: 1 tab Latanoprost (Xalatan 0.005% Eye Drops -) 1 drop OU HS [facility] Last Admin: 01/15/19 22:15 Dose: 1 drop Memantine (Namenda -) 5 mg PO BID [facility] Last Admin: 01/16/19 10:35 Dose: 5 mg Allergies as Documented in the Chart: 1. Azithromycin 2. Levofloxacin. Physical Examination: 83-year-old female was in no acute distress, no pallor, cyanosis, clubbing or jaundice. Last Vital Signs Temp Pulse Resp BP Pulse Ox 97.1 F L 74 18 101/50 L 94 L 01/16/19 14:00 01/16/19 14:00 01/16/19 14:00 01/16/19 14:00 01/15/19 21:00 HEENT: Normocephalic, pupils were equal and reacting to light and accommodation , no scleral icterus or conjunctival pallor, no xanthelasmas. Neck: Supple, no jugular venous distention, carotids were 2+, upstrokes were normal, no bruits were heard and no thyromegaly was present. No supraclavicular or submandibular lymphadenopathy was appreciated. Heart: PMI was in the fifth intercostal space, no heaves or thrills, S1 and S2 were normal. Ejection systolic murmur grade II/ was heard at the second right intercostal space, along the left sternal border ending in early to mid systole. Systolic murmur was also heard at the apex and was poorly radiating. No diastolic murmur or gallops were heard. Lungs: Crepitations at the right base, fine scattered creps left base. Chest: Normal AP diameter, expansion was symmetrical. Abdomen: Soft, nontender. No hepatosplenomegaly or palpable masses were felt. Bowel sounds were present, no bruits were heard. Extremities: No calf tenderness or dependent edema, pulses were equal posterior tibial pulses except posterior tibial pulses were weak. CBC, BMP 01/15/19 06:16 01/16/19 06:27 Chest x-ray Dated: 01/15/19 A single AP view of the chest reveal slight decrease in the right base infiltrate since 01/13/2019. The remainder of the study is unchanged. I MPRESSION: 1. Nonproductive cough associated with loss of appetite and right lower lobe pulmonary infiltrate etiology: a). Secondary to pneumonia. b). Tumor/lymphoma should be excluded. 2. History of lymphoma, status post chemotherapy. 3. Xerostomia and keratoconjunctivitis Tyler, etiology to be determined, Sjgren syndrome needs exclusion. 4. History of forgetfulness post probably related to dementia. 5. History of cerebrovascular events (as noted in the previous visit).type uncertain. 6. 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 Hypokalemia, corrected. 8. Abnormal LFTs. RECOMMENDATIONS: 1. Echocardiogram. 2. Consider CT scan of the chest. 3. Patient should have collagen workup in view of xerostomia and keratoconjunctivitis Tyler. 4. Evaluation of abnormal liver function tests in progress. Prognosis: Guarded. Vinnie Horta MD
[2019-01-16] MEDS: LATANOPROST 0.005% OPHTH SOLN 2.5ML BOTTLE OU SCH (21:59)
[2019-01-17] MEDS: HEPARIN NA (PORCINE) 5,000 UNITS/ML 1ML VIAL SQ SCH ×3 (05:45→21:25)
[2019-01-17 06:59] LABS: INR 1.1 (0.83-1.09)
[2019-01-17 07:09] LABS: ALBUMIN 2.6 g/dl (3.4-5.0); BILIRUBIN,TOTAL 0.4 mg/dL (0.2-1); BLOOD UREA NITROGEN 13.8 mg/dL (7-18); CREATININE 0.6 mg/dL (0.55-1.3); POTASSIUM 3.9 mmol/L (3.5-5.1); TOT PROT 5.1 g/dl (6.4-8.2)
--- NOTE | 2019-01-17 10:02 | PN ---
Progress Note (short form) - Note Progress Note: PULMONARY Denies shortness of breath, cough or fevers. Vital Signs Period Temp Pulse Resp BP Sys/Huff Pulse Ox Last 24 Hr 97.1 F-98.3 F 72-79 18-20 101-130/50-75 Gen: NAD at rest Heart: RRR Lung: right base rales Abd: soft, nontender Ext: no edema CBC, BMP 01/15/19 06:16 01/17/19 05:15 Hepatic Panel Total Bilirubin 0.4 mg/dL (0.2-1) 01/17/19 05:15 AST 113 U/L (15-37) H 01/17/19 05:15 ALT 258 U/L (13-61) H 01/17/19 05:15 Alkaline Phosphatase 150 U/L (45-117) H 01/17/19 05:15 Albumin 2.6 g/dl (3.4-5.0) L 01/17/19 05:15 Active Medications Albuterol/Ipratropium (Duoneb -) 1 amp NEB Q4H PRN PRN Reason: SHORTNESS OF BREATH Aspirin (Ecotrin -) 81 mg PO Q2D [facility] Last Admin: 01/16/19 10:35 Dose: 81 mg Donepezil HCl (Aricept -) 10 mg PO DAILY [facility] Last Admin: 01/16/19 10:35 Dose: 10 mg Heparin Sodium (Porcine) (Heparin -) 5,000 unit SQ TID [facility] Last Admin: 01/17/19 05:45 Dose: 5,000 unit Ceftriaxone Sodium 1 gm/ (Dextrose) 50 mls @ 100 mls/hr IVPB DAILY [facility]; Protocol Last Admin: 01/16/19 10:34 Dose: 100 mls/hr Lactobacillus Acidophilus (Bacid -) 1 tab PO DAILY [facility] Last Admin: 01/16/19 10:34 Dose: 1 tab Latanoprost (Xalatan 0.005% Eye Drops -) 1 drop OU HS [facility] Last Admin: 01/16/19 21:59 Dose: 1 drop Memantine (Namenda -) 5 mg PO BID [facility] Last Admin: 01/16/19 21:59 Dose: 5 mg A/P Pneumonia Non-Hodgkins Lymphoma Elevated LFTs Hypothyroidism - continue antibiotics - f/u cultures - O2 as needed - monitor LFTs - will need outpt f/u of CXR in 6-8 weeks to ensure resolution of infiltrates - DVT prophylaxis Problem List - Problems (1) Pneumonia Code(s): J18.9 - PNEUMONIA, UNSPECIFIED ORGANISM
[2019-01-17] MEDS ORDERED: PT OWN MED DRAWER 7, Y5N ONE (10:15)
[2019-01-17] MEDS ORDERED: DEXTROSE 5%-WATER - 50 ML IVPB ONE (10:15)
[2019-01-17] MEDS ORDERED: cefTRIAXone SODIUM 1 GM VIAL ONE (10:15)
--- NOTE | 2019-01-17 10:17 | PN ---
Progress Note (short form) - Note Progress Note: 83-year-old white female who was admitted to the hospital with history of hacking cough, no h/o expectoration, H/o loss of appetite. She denies having dyspnea either at rest or with exertion, no history paroxysmal nocturnal dyspnea or orthopnea. No history of chest pain or discomfort either at rest or with exertion. States cough is less pronounced and no further pleuritic right lower chest discomfort. Patient states cough is less pronounced, remains afebrile.,C/o pleuritic right posterior basal chest pain. Active Medications Albuterol/Ipratropium (Duoneb -) 1 amp NEB Q4H PRN PRN Reason: SHORTNESS OF BREATH Aspirin (Ecotrin -) 81 mg PO Q2D [facility] Last Admin: 01/16/19 10:35 Dose: 81 mg Donepezil HCl (Aricept -) 10 mg PO DAILY [facility] Last Admin: 01/16/19 10:35 Dose: 10 mg Heparin Sodium (Porcine) (Heparin -) 5,000 unit SQ TID [facility] Last Admin: 01/17/19 05:45 Dose: 5,000 unit Ceftriaxone Sodium 1 gm/ (Dextrose) 50 mls @ 100 mls/hr IVPB DAILY [facility]; Protocol Last Admin: 01/16/19 10:34 Dose: 100 mls/hr Lactobacillus Acidophilus (Bacid -) 1 tab PO DAILY [facility] Last Admin: 01/16/19 10:34 Dose: 1 tab Latanoprost (Xalatan 0.005% Eye Drops -) 1 drop OU HS [facility] Last Admin: 01/16/19 21:59 Dose: 1 drop Memantine (Namenda -) 5 mg PO BID [facility] Last Admin: 01/16/19 21:59 Dose: 5 mg Allergies as Documented in the Chart: 1. Azithromycin 2. Levofloxacin. Physical Examination: 83-year-old female was in no acute distress, no pallor, cyanosis, clubbing or jaundice. Last Vital Signs Temp Pulse Resp BP Pulse Ox 98.3 F 74 20 127/63 94 L 01/17/19 06:00 01/17/19 06:00 01/17/19 06:00 01/17/19 06:00 01/15/19 21:00 HEENT: Normocephalic, pupils were equal and reacting to light and accommodation , no scleral icterus or conjunctival pallor, no xanthelasmas. Neck: Supple, no jugular venous distention, carotids were 2+, upstrokes were normal, no bruits were heard and no thyromegaly was present. No supraclavicular or submandibular lymphadenopathy was appreciated. Heart: PMI was in the fifth intercostal space, no heaves or thrills, S1 and S2 were normal. Ejection systolic murmur grade II/ was heard at the second right intercostal space, along the left sternal border ending in early to mid systole. Systolic murmur was also heard at the apex and was poorly radiating. No diastolic murmur or gallops were heard. Lungs: Crepitations at the right base, fine scattered creps left base. Chest: Normal AP diameter, expansion was symmetrical. Abdomen: Soft, nontender. No hepatosplenomegaly or palpable masses were felt. Bowel sounds were present, no bruits were heard. Extremities: No calf tenderness or dependent edema, pulses were equal posterior tibial pulses except posterior tibial pulses were weak. CBC, BMP 01/15/19 06:16 01/17/19 05:15 Chest x-ray Dated: 01/15/19 A single AP view of the chest reveal slight decrease in the right base infiltrate since 01/13/2019. The remainder of the study is unchanged. IMPRESSION: 1. Nonproductive cough associated with loss of appetite and right lower lobe pulmonary infiltrate etiology: a). Secondary to pneumonia. b). Tumor/lymphoma should be excluded. 2. History of lymphoma, status post chemotherapy. 3. Xerostomia and keratoconjunctivitis Tyler, etiology to be determined, Sjgren syndrome needs exclusion. 4. History of forgetfulness post probably related to dementia. 5. History of cerebrovascular events (as noted in the previous visit).type uncertain. 6. 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 Hypokalemia, corrected. 8. Abnormal LFTs. RECOMMENDATIONS: 1. Echocardiogram. 2. Consider CT scan of the chest. 3. Patient should have collagen workup in view of xerostomia and keratoconjunctivitis Tyler. 4. Evaluation of abnormal liver function tests in progress. Prognosis: Guarded. Vinnie Horta MD
[2019-01-17] MEDS: LACTOBACILLUS ACIDOPHILUS 1 TABLET PO SCH (10:18)
[2019-01-17] MEDS: CEFTRIAXONE 1 GM in DEXTROSE 5%-WATER - 50 ML IVPB SCH (10:18)
[2019-01-17] MEDS: DONEPEZIL HCL 10 MG TABLET (FP) PO SCH (10:18)
[2019-01-17] MEDS: MEMANTINE HCL 5 MG TABLET (UD) PO SCH ×2 (10:19→21:25)
--- NOTE | 2019-01-17 10:22 | PN.GI ---
GI Progress Note Subjective: No acute events No abdominal pain + Cough + RLL infiltrate noted on CXR Patient cannot recall if she was on Abx prior to admission + Pleuritic right sided chest pain when she takes a deep breath - Objective Vital Signs: Vital Signs Temperature 98.3 F 01/17/19 06:00 Pulse Rate 74 01/17/19 06:00 Respiratory Rate 20 01/17/19 06:00 Blood Pressure 127/63 01/17/19 06:00 O2 Sat by Pulse Oximetry (%) 94 L 01/15/19 21:00 Constitutional: Calm Eyes: No: Sclera Icterus Cardiovascular: Yes: Regular Rate and Rhythm Respiratory: Yes: Rhonchi (right lower lobe) ...Auscultate: Yes: Normoactive Bowel Sounds ...Palpate: Yes: Soft. No: Hepatomegaly, Splenomegaly, Tenderness Edema: No (No LE edema) Neurological: Yes: Alert Labs: CBC, BMP 01/15/19 06:16 01/17/19 05:15 INR, PTT INR 1.10 (0.83-1.09) H 01/17/19 05:15 Assessment/Plan Abnormal liver chemistries: stable and asymptomatic ? reactive from RLL infiltrate ? compnent of passive congestion - Echo per cardiology - Consider less cholestatic Abx. - Avoid hepatotoxic agents - Monitor LFTs
--- NOTE | 2019-01-17 11:49 | DS ---
Physical Examination Vital Signs: Vital Signs Temperature 98.3 F 01/17/19 06:00 Pulse Rate 74 01/17/19 06:00 Respiratory Rate 20 01/17/19 06:00 Blood Pressure 127/63 01/17/19 06:00 O2 Sat by Pulse Oximetry (%) 94 L 01/15/19 21:00 Findings/Remarks: Patient is an 83 y/o female with past medical history of non-Hodgkin's Lymphoma , Hypothyroidism. Patient presented to ER after 2 weeks of persistent non- productive cough with generalized weakness and decreased PO intake. Constitutional: Yes: No Distress, Calm Eyes: Yes: Conjunctiva Clear HENT: Yes: Atraumatic Cardiovascular: Yes: Regular Rate and Rhythm Respiratory: Yes: Regular, Rales (R base) Gastrointestinal: Yes: Normal Bowel Sounds, Soft Musculoskeletal: Yes: Muscle Weakness Extremities: Yes: WNL Edema: No Neurological: Yes: Alert, Confusion Psychiatric: Yes: Alert Labs: CBC, BMP 01/15/19 06:16 01/17/19 05:15 Microbiology 01/13/19 15:05 Blood - Peripheral Venous Blood Culture - Preliminary NO GROWTH OBTAINED AFTER 72 HOURS, INCUBATION TO CONTINUE FOR 2 DAYS. 01/13/19 15:05 Blood - Peripheral Venous Blood Culture - Preliminary NO GROWTH OBTAINED AFTER 72 HOURS, INCUBATION TO CONTINUE FOR 2 DAYS. 01/13/19 16:30 Urine - Urine Clean Catch Urine Culture - Final Lactose Fermenting Neg Bacilli 01/14/19 11:35 Urine For Antigen Detection Legionella Antigen - Final 01/14/19 11:35 Urine For Antigen Detection Streptococcus pneumoniae Antigen (M - Final Discharge Summary Reason For Visit: PNEUMONIA Current Active Problems Abnormal LFTs (Acute) Allergy to multiple antibiotics (Acute) Pneumonia (Acute) Toxic metabolic encephalopathy (Acute) Toxic metabolic encephalopathy (Acute) Procedures: Principal: CXR Hospital Course: see progress notes Laboratory Tests 01/13/19 01/13/19 01/13/19 15:05 15:05 15:05 WBC 11.7 H RBC 3.75 Hgb 10.9 Hct 32.3 L MCV 86.1 MCH 29.0 MCHC 33.7 RDW 14.8 Plt Count 200 MPV 7.9 Absolute Neuts (auto) 10.4 H Neutrophils % 89.0 H Lymphocytes % 3.3 L Monocytes % 7.0 Eosinophils % 0.3 Basophils % 0.4 Nucleated RBC % 0 PT with INR INR PTT (Actin FS) 29.2 VBG pH POC VBG pCO2 POC VBG pO2 VBG HCO3 VBG O2 Sat (Richard) VBG Base Excess Sodium 140 Potassium 3.7 Chloride 106 Carbon Dioxide 27 Anion Gap 8 BUN 12.1 Creatinine 0.7 Est GFR (CKD-EPI)AfAm 92.21 Est GFR (CKD-EPI)NonAf 79.56 Random Glucose 107 H Lactic Acid Calcium 8.4 L Phosphorus Magnesium Total Bilirubin 0.7 AST 127 H ALT 252 H Alkaline Phosphatase 169 H Troponin I Total Protein 5.3 L Albumin 2.7 L TSH Urine Color Urine Appearance Urine pH Ur Specific Hurricane Urine Protein Urine Glucose (UA) Urine Ketones Urine Blood Urine Nitrite Urine Bilirubin Urine Urobilinogen Ur Leukocyte Esterase Urine WBC (Auto) Urine RBC (Auto) Urine Casts (Auto) U Epithel Cells (Auto) Urine Bacteria (Auto) Urine Yeast (Auto) Hep A IgM Ab Confirm Hep Bs Antigen Hep B Core IgM Ab Hepatitis C Ab (EIA) 01/13/19 01/13/19 01/13/19 15:05 15:05 15:05 WBC RBC Hgb Hct MCV MCH MCHC RDW Plt Count MPV Absolute Neuts (auto) Neutrophils % Lymphocytes % Monocytes % Eosinophils % Basophils % Nucleated RBC % PT with INR 15.60 H INR 1.32 H PTT (Actin FS) VBG pH POC VBG pCO2 POC VBG pO2 VBG HCO3 VBG O2 Sat (Richard) VBG Base Excess Sodium Potassium Chloride Carbon Dioxide Anion Gap BUN Creatinine Est GFR (CKD-EPI)AfAm Est GFR (CKD-EPI)NonAf Random Glucose Lactic Acid Calcium Phosphorus Cancelled 2.1 L Magnesium Cancelled 2.1 Total Bilirubin AST ALT Alkaline Phosphatase Troponin I < 0.02 Total Protein Albumin TSH 1.00 Urine Color Urine Appearance Urine pH Ur Specific Hurricane Urine Protein Urine Glucose (UA) Urine Ketones Urine Blood Urine Nitrite Urine Bilirubin Urine Urobilinogen Ur Leukocyte Esterase Urine WBC (Auto) Urine RBC (Auto) Urine Casts (Auto) U Epithel Cells (Auto) Urine Bacteria (Auto) Urine Yeast (Auto) Hep A IgM Ab Confirm Hep Bs Antigen Hep B Core IgM Ab Hepatitis C Ab (EIA) 01/13/19 01/13/19 01/13/19 15:05 15:05 15:09 WBC RBC Hgb Hct MCV MCH MCHC RDW Plt Count MPV Absolute Neuts (auto) Neutrophils % Lymphocytes % Monocytes % Eosinophils % Basophils % Nucleated RBC % PT with INR INR PTT (Actin FS) VBG pH 7.46 H POC VBG pCO2 37.5 L POC VBG pO2 31.9 VBG HCO3 26.0 VBG O2 Sat (Richard) 60.4 L VBG Base Excess 2.6 H Sodium Potassium Chloride Carbon Dioxide Anion Gap BUN Creatinine Est GFR (CKD-EPI)AfAm Est GFR (CKD-EPI)NonAf Random Glucose Lactic Acid 0.6 Calcium Phosphorus Magnesium Total Bilirubin AST ALT Alkaline Phosphatase Troponin I Cancelled Total Protein Albumin TSH Urine Color Urine Appearance Urine pH Ur Specific Hurricane Urine Protein Urine Glucose (UA) Urine Ketones Urine Blood Urine Nitrite Urine Bilirubin Urine Urobilinogen Ur Leukocyte Esterase Urine WBC (Auto) Urine RBC (Auto) Urine Casts (Auto) U Epithel Cells (Auto) Urine Bacteria (Auto) Urine Yeast (Auto) Hep A IgM Ab Confirm Hep Bs Antigen Hep B Core IgM Ab Hepatitis C Ab (EIA) 01/13/19 01/14/19 01/14/19 16:30 06:48 06:48 WBC 10.1 H RBC 3.64 Hgb 10.6 L Hct 31.0 L MCV 85.3 MCH 29.1 MCHC 34.1 RDW 15.2 Plt Count 174 MPV 8.6 Absolute Neuts (auto) Neutrophils % Lymphocytes % Monocytes % Eosinophils % Basophils % Nucleated RBC % PT with INR INR PTT (Actin FS) VBG pH POC VBG pCO2 POC VBG pO2 VBG HCO3 VBG O2 Sat (Richard) VBG Base Excess Sodium 139 Potassium 3.3 L Chloride 105 Carbon Dioxide 25 Anion Gap 9 BUN 9.3 Creatinine 0.6 Est GFR (CKD-EPI)AfAm 97.01 Est GFR (CKD-EPI)NonAf 83.70 Random Glucose 104 Lactic Acid Calcium 8.1 L Phosphorus Magnesium 2.1 Total Bilirubin 1.1 H AST 94 H ALT 200 H Alkaline Phosphatase 154 H Troponin I Total Protein 4.8 L Albumin 2.4 L TSH 1.15 Urine Color Dk yellow Urine Appearance Clear Urine pH 6.0 Ur Specific Hurricane 1.021 Urine Protein 2+ H Urine Glucose (UA) Negative Urine Ketones Negative Urine Blood 1+ H Urine Nitrite Negative Urine Bilirubin Negative Urine Urobilinogen 2.0 H Ur Leukocyte Esterase Trace Urine WBC (Auto) 3 Urine RBC (Auto) 27.2 Urine Casts (Auto) 8 U Epithel Cells (Auto) 2.8 Urine Bacteria (Auto) 2.0 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 Hep A IgM Ab Confirm Hep Bs Antigen Hep B Core IgM Ab Hepatitis C Ab (EIA) 01/15/19 01/15/19 01/15/19 06:16 06:16 17:30 WBC 7.1 RBC 3.67 Hgb 10.9 Hct 31.5 L MCV 85.8 MCH 29.6 MCHC 34.5 RDW 15.5 Plt Count 189 MPV 8.2 Absolute Neuts (auto) Neutrophils % Lymphocytes % Monocytes % Eosinophils % Basophils % Nucleated RBC % PT with INR INR PTT (Actin FS) VBG pH POC VBG pCO2 POC VBG pO2 VBG HCO3 VBG O2 Sat (Richard) VBG Base Excess Sodium 144 Potassium 3.7 Chloride 109 H Carbon Dioxide 28 Anion Gap 7 L BUN 8.0 Creatinine 0.6 Est GFR (CKD-EPI)AfAm 97.01 Est GFR (CKD-EPI)NonAf 83.70 Random Glucose 98 Lactic Acid Calcium 8.8 Phosphorus Magnesium 2.2 Total Bilirubin 0.4 AST 105 H ALT 227 H Alkaline Phosphatase 171 H Troponin I Total Protein 5.0 L Albumin 2.4 L TSH Urine Color Urine Appearance Urine pH Ur Specific Hurricane Urine Protein Urine Glucose (UA) Urine Ketones Urine Blood Urine Nitrite Urine Bilirubin Urine Urobilinogen Ur Leukocyte Esterase Urine WBC (Auto) Urine RBC (Auto) Urine Casts (Auto) U Epithel Cells (Auto) Urine Bacteria (Auto) Urine Yeast (Auto) Hep A IgM Ab Confirm Negative Hep Bs Antigen Negative Hep B Core IgM Ab Negative Hepatitis C Ab (EIA) <0.1 01/16/19 01/17/19 01/17/19 06:27 05:15 05:15 WBC RBC Hgb Hct MCV MCH MCHC RDW Plt Count MPV Absolute Neuts (auto) Neutrophils % Lymphocytes % Monocytes % Eosinophils % Basophils % Nucleated RBC % PT with INR 13.00 INR 1.10 H PTT (Actin FS) VBG pH POC VBG pCO2 POC VBG pO2 VBG HCO3 VBG O2 Sat (Richard) VBG Base Excess Sodium 144 144 Potassium 3.5 3.9 Chloride 110 H 110 H Carbon Dioxide 25 26 Anion Gap 9 8 BUN 11.4 13.8 Creatinine 0.6 0.6 Est GFR (CKD-EPI)AfAm 97.01 97.01 Est GFR (CKD-EPI)NonAf 83.70 83.70 Random Glucose 101 95 Lactic Acid Calcium 8.6 9.0 Phosphorus Magnesium Total Bilirubin 0.3 0.4 AST 117 H 113 H ALT 243 H 258 H Alkaline Phosphatase 152 H 150 H Troponin I Total Protein 4.8 L 5.1 L Albumin 2.3 L 2.6 L TSH Urine Color Urine Appearance Urine pH Ur Specific Hurricane Urine Protein Urine Glucose (UA) Urine Ketones Urine Blood Urine Nitrite Urine Bilirubin Urine Urobilinogen Ur Leukocyte Esterase Urine WBC (Auto) Urine RBC (Auto) Urine Casts (Auto) U Epithel Cells (Auto) Urine Bacteria (Auto) Urine Yeast (Auto) Hep A IgM Ab Confirm Hep Bs Antigen Hep B Core IgM Ab Hepatitis C Ab (EIA) Active Medications Generic Name Dose Route Start Last Admin Trade Name Freq PRN Reason Stop Dose Admin Albuterol/Ipratropium 1 amp 01/14/19 00:13 Duoneb - NEB Q4H PRN SHORTNESS OF BREATH Amoxicillin/Clavulanate Potassium 1 tab 01/17/19 17:30 Augmentin - 875mg Tablet PO 01/22/19 17:29 BID@0800,1730 ADRIÁN Aspirin 81 mg 01/14/19 10:00 01/16/19 10:35 Ecotrin - PO 81 mg Q2D ADRIÁN Administration Donepezil HCl 10 mg 01/14/19 10:00 01/17/19 10:18 Aricept - PO 10 mg DAILY ADRIÁN Administration Heparin Sodium (Porcine) 5,000 unit 01/14/19 06:00 01/17/19 05:45 Heparin - SQ 5,000 unit TID ADRIÁN Administration Lactobacillus Acidophilus 1 tab 01/14/19 10:00 01/17/19 10:18 Bacid - PO 1 tab DAILY ADRIÁN Administration Latanoprost 1 drop 01/14/19 22:00 01/16/19 21:59 Xalatan 0.005% Eye Drops - OU 1 drop HS ADRIÁN Administration Memantine 5 mg 01/13/19 23:00 01/17/19 10:19 Namenda - PO 5 mg BID ADRIÁN Administration Microbiology 01/13/19 15:05 Blood - Peripheral Venous Blood Culture - Preliminary NO GROWTH OBTAINED AFTER 72 HOURS, INCUBATION TO CONTINUE FOR 2 DAYS. 01/13/19 15:05 Blood - Peripheral Venous Blood Culture - Preliminary NO GROWTH OBTAINED AFTER 72 HOURS, INCUBATION TO CONTINUE FOR 2 DAYS. 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[facility] follow up with PMD in 1 week follow up with GI Dr Cruz follow up with Pulmonary Dr Sheets for repeat CXR in 6-8 weeks continue with antibiotics as prescribed Prednisone taper: take 40mg x 3 days, take 30mg x 3 days, take 20mg x 3 days, take 10mg x 3 days return to ER if develop respiratory distress, chest pain, severe pain Referrals: Cyrus Cruz DO [Staff Physician] - Disposition: VNS/HOME HEALTH CARE - Home Medications Comprehensive Discharge Medication List: Ambulatory Orders L.acidoph,Paracasei, B.lactis [Probiotic] 1 each PO HS 04/11/17 Aspirin [Aspirin EC] 81 mg PO Q2D 06/26/17 Bimatoprost [Lumigan] 1 drop OU HS 12/11/17 B Complex C 11/Calcium/Dha/Q10 [Brain Mpgnp-Pmg-Jz Q10 Tablet] 1 each PO DAILY 01/13/19 Donepezil HCl 10 mg PO DAILY 01/13/19 Memantine HCl [Namenda -] 5 mg PO BID 01/13/19 Vit D3/Folic Acid/B2/B6/B12 [Folgard Tablet] 1 each PO WEEKLY 01/13/19 Albuterol 2.5/Ipratropium 0.5 [Duoneb -] 1 amp NEB Q4H PRN #30 amp 01/17/19 Amox-Tr/K Cl [Augmentin 875-125mg Tablet -] 1 tab PO BID@0800,1730 #8 tablet 07/07 Nebulizer Accessories [Airs Adult Aerosol Mask] 1 each PRN #1 each 01/17/19 Nebulizer [Aeroeclipse II] 1 each PRN #1 each 01/17/19
--- NOTE | 2019-01-17 15:08 | PN ---
Progress Note (short form) - Note Progress Note: continues with cough, more pleuritic today Vital Signs Period Temp Pulse Resp BP Sys/Huff Pulse Ox Last 24 Hr 97.5 F-98.3 F 72-79 18-20 116-130/63-75 cor-rrr crackles right base abd soft, RUQ discomfort ext no edema CBC, BMP 01/15/19 06:16 01/17/19 05:15 Microbiology 01/13/19 15:05 Blood - Peripheral Venous Blood Culture - Preliminary NO GROWTH OBTAINED AFTER 72 HOURS, INCUBATION TO CONTINUE FOR 2 DAYS. 01/13/19 15:05 Blood - Peripheral Venous Blood Culture - Preliminary NO GROWTH OBTAINED AFTER 72 HOURS, INCUBATION TO CONTINUE FOR 2 DAYS. 01/13/19 16:30 Urine - Urine Clean Catch Urine Culture - Final Lactose Fermenting Neg Bacilli 01/14/19 11:35 Urine For Antigen Detection Legionella Antigen - Final 01/14/19 11:35 Urine For Antigen Detection Streptococcus pneumoniae Antigen (M - Final abdomnal sonogram normal Current Medications Albuterol/Ipratropium (Duoneb -) 1 amp NEB Q4H PRN PRN Reason: SHORTNESS OF BREATH Amoxicillin/Clavulanate Potassium (Augmentin - 875mg Tablet) 1 tab PO BID@0800, 1730 [facility] Stop: 01/22/19 17:29 Aspirin (Ecotrin -) 81 mg PO Q2D [facility] Last Admin: 01/16/19 10:35 Dose: 81 mg Donepezil HCl (Aricept -) 10 mg PO DAILY [facility] Last Admin: 01/17/19 10:18 Dose: 10 mg Heparin Sodium (Porcine) (Heparin -) 5,000 unit SQ TID [facility] Last Admin: 01/17/19 14:54 Dose: 5,000 unit Lactobacillus Acidophilus (Bacid -) 1 tab PO DAILY [facility] Last Admin: 01/17/19 10:18 Dose: 1 tab Latanoprost (Xalatan 0.005% Eye Drops -) 1 drop OU HS [facility] Last Admin: 01/16/19 21:59 Dose: 1 drop Memantine (Namenda -) 5 mg PO BID [facility] Last Admin: 01/17/19 10:19 Dose: 5 mg Laboratory Tests 01/13/19 01/14/19 01/15/19 15:05 06:48 06:16 Total Bilirubin 1.1 H AST 127 H 94 H 105 H ALT 252 H 200 H 227 H Alkaline Phosphatase 169 H 154 H 171 H 01/16/19 01/17/19 06:27 05:15 Total Bilirubin AST 117 H 113 H ALT 243 H 258 H Alkaline Phosphatase 152 H 150 H a/p RLL pneumonia- day #4 antiibotics switched to augmentin today abnormal lfts- sonogram normal, ?secondary to pneumonia history NHL antibiotics allergies noted repeat cxray in dept with pa and lateral Problem List - Problems (1) Pneumonia Code(s): J18.9 - PNEUMONIA, UNSPECIFIED ORGANISM (2) Non Hodgkin's lymphoma Code(s): C85.90 - NON-HODGKIN LYMPHOMA, UNSPECIFIED, UNSPECIFIED SITE (3) Abnormal LFTs Code(s): R94.5 - ABNORMAL RESULTS OF LIVER FUNCTION STUDIES (4) Allergy to multiple antibiotics Code(s): Z88.1 - ALLERGY STATUS TO OTHER ANTIBIOTIC AGENTS STATUS
[2019-01-17] MEDS: AMOX TR/POT CLAV 875MG/125MG TABLETS (FP) PO SCH (17:35)
[2019-01-17] MEDS: LATANOPROST 0.005% OPHTH SOLN 2.5ML BOTTLE OU SCH (22:40)
[2019-01-18] MEDS: HEPARIN NA (PORCINE) 5,000 UNITS/ML 1ML VIAL SQ SCH (06:01)
--- NOTE | 2019-01-18 08:33 | PN ---
Progress Note (short form) - Note Progress Note: PULMONARY Denies shortness of breath, cough or fevers. Repeat CXR unchanged. Vital Signs Period Temp Pulse Resp BP Sys/Huff Pulse Ox Last 24 Hr 97.5 F-97.7 F 87-119 20-20 105-130/60-76 95 Gen: NAD at rest Heart: RRR Lung: right base rales Abd: soft, nontender Ext: no edema CBC, BMP 01/15/19 06:16 01/17/19 05:15 Active Medications Albuterol/Ipratropium (Duoneb -) 1 amp NEB Q4H PRN PRN Reason: SHORTNESS OF BREATH Amoxicillin/Clavulanate Potassium (Augmentin - 875mg Tablet) 1 tab PO BID@0800, 1730 [facility] Stop: 01/22/19 17:29 Last Admin: 01/17/19 17:35 Dose: 1 tab Aspirin (Ecotrin -) 81 mg PO Q2D [facility] Last Admin: 01/16/19 10:35 Dose: 81 mg Donepezil HCl (Aricept -) 10 mg PO DAILY [facility] Last Admin: 01/17/19 10:18 Dose: 10 mg Heparin Sodium (Porcine) (Heparin -) 5,000 unit SQ TID [facility] Last Admin: 01/18/19 06:01 Dose: 5,000 unit Lactobacillus Acidophilus (Bacid -) 1 tab PO DAILY [facility] Last Admin: 01/17/19 10:18 Dose: 1 tab Latanoprost (Xalatan 0.005% Eye Drops -) 1 drop OU HS [facility] Last Admin: 01/17/19 22:40 Dose: 1 drop Memantine (Namenda -) 5 mg PO BID [facility] Last Admin: 01/17/19 21:25 Dose: 5 mg A/P Pneumonia Non-Hodgkins Lymphoma Elevated LFTs Hypothyroidism - continue antibiotics - f/u cultures - O2 as needed - monitor LFTs - will need outpt f/u of CXR in 6-8 weeks to ensure resolution of infiltrates - DVT prophylaxis Problem List - Problems (1) Pneumonia Code(s): J18.9 - PNEUMONIA, UNSPECIFIED ORGANISM
[2019-01-18] MEDS: AMOX TR/POT CLAV 875MG/125MG TABLETS (FP) PO SCH (08:49)
[2019-01-18] MEDS ORDERED: PT OWN MED DRAWER 7, Y5N ONE (09:08)
[2019-01-18] MEDS: MEMANTINE HCL 5 MG TABLET (UD) PO SCH (09:18)
[2019-01-18] MEDS: DONEPEZIL HCL 10 MG TABLET (FP) PO SCH (09:18)
[2019-01-18] MEDS: ASPIRIN COATED 81 MG TABLET.EC PO SCH (09:18)
[2019-01-18] MEDS: LACTOBACILLUS ACIDOPHILUS 1 TABLET PO SCH (09:18)
--- NOTE | 2019-01-18 10:18 | PN ---
Progress Note, Physician Chief Complaint: Pneumonia History of Present Illness: Previous notes and events reviewed awake and alert NAD no complaints of chest pain or SOB sts still having cough repeat CXR reviewed - Current Medication List Current Medications: Active Medications Albuterol/Ipratropium (Duoneb -) 1 amp NEB Q4H PRN PRN Reason: SHORTNESS OF BREATH Amoxicillin/Clavulanate Potassium (Augmentin - 875mg Tablet) 1 tab PO BID@0800, 1730 [facility] Stop: 01/22/19 17:29 Last Admin: 01/18/19 08:49 Dose: 1 tab Aspirin (Ecotrin -) 81 mg PO Q2D [facility] Last Admin: 01/18/19 09:18 Dose: 81 mg Donepezil HCl (Aricept -) 10 mg PO DAILY [facility] Last Admin: 01/18/19 09:18 Dose: 10 mg Heparin Sodium (Porcine) (Heparin -) 5,000 unit SQ TID [facility] Last Admin: 01/18/19 06:01 Dose: 5,000 unit Lactobacillus Acidophilus (Bacid -) 1 tab PO DAILY [facility] Last Admin: 01/18/19 09:18 Dose: 1 tab Latanoprost (Xalatan 0.005% Eye Drops -) 1 drop OU HS [facility] Last Admin: 01/17/19 22:40 Dose: 1 drop Memantine (Namenda -) 5 mg PO BID [facility] Last Admin: 01/18/19 09:18 Dose: 5 mg - Objective Vital Signs: Vital Signs Temperature 97.6 F 01/18/19 07:03 Pulse Rate 119 H 01/18/19 07:03 Respiratory Rate 20 01/18/19 07:03 Blood Pressure 119/76 01/18/19 07:03 O2 Sat by Pulse Oximetry (%) 95 01/17/19 21:00 Constitutional: Yes: No Distress, Calm Eyes: Yes: Conjunctiva Clear HENT: Yes: Atraumatic Cardiovascular: Yes: Regular Rate and Rhythm Respiratory: Yes: Regular, Diminished Gastrointestinal: Yes: Normal Bowel Sounds, Soft Musculoskeletal: Yes: Muscle Weakness Extremities: Yes: WNL Edema: No Neurological: Yes: Alert Psychiatric: Yes: Alert Labs: CBC, BMP 01/15/19 06:16 01/17/19 05:15 INR, PTT INR 1.10 (0.83-1.09) H 01/17/19 05:15 Microbiology 01/13/19 15:05 Blood - Peripheral Venous Blood Culture - Final NO GROWTH AFTER 5 DAYS INCUBATION 01/13/19 15:05 Blood - Peripheral Venous Blood Culture - Final NO GROWTH AFTER 5 DAYS INCUBATION 01/13/19 16:30 Urine - Urine Clean Catch Urine Culture - Final Lactose Fermenting Neg Bacilli 01/14/19 11:35 Urine For Antigen Detection Legionella Antigen - Final 01/14/19 11:35 Urine For Antigen Detection Streptococcus pneumoniae Antigen (M - Final - ....Imaging Chest X-ray: Report Reviewed Problem List - Problems (1) Abnormal LFTs Code(s): R94.5 - ABNORMAL RESULTS OF LIVER FUNCTION STUDIES (2) Pneumonia Code(s): J18.9 - PNEUMONIA, UNSPECIFIED ORGANISM Assessment/Plan patient discharged home today with home services
[2019-01-18 12:12] VITALS: BP 92/53; PULSE 73; TEMP 98.1
--- NOTE | 2019-01-18 12:30 | PN ---
Progress Note (short form) - Note Progress Note: 83-year-old white female who was admitted to the hospital with history of hacking cough, no h/o expectoration, H/o loss of appetite. She denies having dyspnea either at rest or with exertion, no history paroxysmal nocturnal dyspnea or orthopnea. No history of chest pain or discomfort either at rest or with exertion. States cough is less pronounced and no further pleuritic right lower chest discomfort. Patient states that she has noticed a decrease in her cough, still is unable to expectorate. No chills or fever reported. Active Medications Albuterol/Ipratropium (Duoneb -) 1 amp NEB Q4H PRN PRN Reason: SHORTNESS OF BREATH Amoxicillin/Clavulanate Potassium (Augmentin - 875mg Tablet) 1 tab PO BID@0800, 1730 [facility] Stop: 01/22/19 17:29 Last Admin: 01/18/19 08:49 Dose: 1 tab Aspirin (Ecotrin -) 81 mg PO Q2D [facility] Last Admin: 01/18/19 09:18 Dose: 81 mg Donepezil HCl (Aricept -) 10 mg PO DAILY [facility] Last Admin: 01/18/19 09:18 Dose: 10 mg Heparin Sodium (Porcine) (Heparin -) 5,000 unit SQ TID [facility] Last Admin: 01/18/19 06:01 Dose: 5,000 unit Lactobacillus Acidophilus (Bacid -) 1 tab PO DAILY [facility] Last Admin: 01/18/19 09:18 Dose: 1 tab Latanoprost (Xalatan 0.005% Eye Drops -) 1 drop OU HS [facility] Last Admin: 01/17/19 22:40 Dose: 1 drop Memantine (Namenda -) 5 mg PO BID [facility] Last Admin: 01/18/19 09:18 Dose: 5 mg Allergies as Documented in the Chart: 1. Azithromycin 2. Levofloxacin. Physical Examination: 83-year-old female was in no acute distress, no pallor, cyanosis, clubbing or jaundice. Last Vital Signs Temp Pulse Resp BP Pulse Ox 98.1 F 73 20 92/53 L 95 01/18/19 10:00 01/18/19 10:00 01/18/19 10:00 01/18/19 10:00 01/18/19 09:00 HEENT: Normocephalic, pupils were equal and reacting to light and accommodation , no scleral icterus or conjunctival pallor, no xanthelasmas. Neck: Supple, no jugular venous distention, carotids were 2+, upstrokes were normal, no bruits were heard and no thyromegaly was present. No supraclavicular or submandibular lymphadenopathy was appreciated. Heart: PMI was in the fifth intercostal space, no heaves or thrills, S1 and S2 were normal. Ejection systolic murmur grade II/ was heard at the second right intercostal space, along the left sternal border ending in early to mid systole. Systolic murmur was also heard at the apex and was poorly radiating. No diastolic murmur or gallops were heard. Lungs: Crepitations at the right base, breath sounds have improved, fine scattered creps left base. Chest: Normal AP diameter, expansion was symmetrical. Abdomen: Soft, nontender. No hepatosplenomegaly or palpable masses were felt. Bowel sounds were present, no bruits were heard. Extremities: No calf tenderness or dependent edema, pulses were equal posterior tibial pulses except posterior tibial pulses were weak. CBC, BMP 01/15/19 06:16 01/17/19 05:15 Chest x-ray Dated: 01/17/19 Single AP view of the chest is been submitted. Since 01/16/2019 again noted is the right lower lobe pneumonia. The remainder the study is unchanged. If findings do not resolve then further imaging with CT is suggested. IMPRESSION: 1. Nonproductive cough associated with loss of appetite and right lower lobe pulmonary infiltrate etiology: a). Secondary to pneumonia. b). Tumor/lymphoma should be excluded. 2. History of lymphoma, status post chemotherapy. 3. Xerostomia and keratoconjunctivitis Tyler, etiology to be determined, Sjgren syndrome needs exclusion. 4. History of forgetfulness post probably related to dementia. 5. History of cerebrovascular events (as noted in the previous visit).type uncertain. 6. 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 Hypokalemia, corrected. 8. Abnormal LFTs. RECOMMENDATIONS: 1. Echocardiogram. 2. Consider CT scan of the chest. 3. Patient should have collagen workup in view of xerostomia and keratoconjunctivitis Tyler. 4. Evaluation of abnormal liver function tests in progress. Prognosis: Guarded. Vinnie Horta MD
--- NOTE | 2019-01-18 12:50 | PN ---
Progress Note (short form) - Note Progress Note: feels better today pleuritic pain has resolved less cough Vital Signs Period Temp Pulse Resp BP Sys/Huff Pulse Ox Last 24 Hr 97.5 F-98.1 F 73-119 20-20 92-130/53-76 95-95 cor-rrr lungs crackles right base abd soft,nt ext no edema CBC, BMP 01/15/19 06:16 01/17/19 05:15 abdomnal sonogram normal cxray unchanged a/p RLL pneumonia- day #5 antiibotics on augmentin finish 7 days total antibiotics needs f/u imaging abnormal lfts- sonogram normal, ?secondary to pneumonia will need to have f/u of LFTs as well history NHL antibiotics allergies noted Problem List - Problems (1) Pneumonia Code(s): J18.9 - PNEUMONIA, UNSPECIFIED ORGANISM (2) Non Hodgkin's lymphoma Code(s): C85.90 - NON-HODGKIN LYMPHOMA, UNSPECIFIED, UNSPECIFIED SITE (3) Abnormal LFTs Code(s): R94.5 - ABNORMAL RESULTS OF LIVER FUNCTION STUDIES (4) Allergy to multiple antibiotics Code(s): Z88.1 - ALLERGY STATUS TO OTHER ANTIBIOTIC AGENTS STATUS
== END 2019-01-18 15:40 | disposition home health service (06) | DRG 193 ==
LOC: JER 13:05 → JERBED 17:44 → J8W 21:31
PROVIDERS: ADMIT Family Medicine; ATTEND Family Medicine
DX: J18.9 Pneumonia, unspecified organism (principal); G92 Toxic encephalopathy; N17.9 Acute kidney failure, unspecified; E03.9 Hypothyroidism, unspecified; J44.9 Chronic obstructive pulmonary disease, unspecified; F03.90 Unspecified dementia, unspecified severity, without behavioral disturbance, psychotic disturbance, mood disturbance, and anxiety; E83.51 Hypocalcemia; K21.9 Gastro-esophageal reflux disease without esophagitis; K57.90 Diverticulosis of intestine, part unspecified, without perforation or abscess without bleeding; H40.9 Unspecified glaucoma; E86.0 Dehydration; R94.5 Abnormal results of liver function studies; D64.9 Anemia, unspecified; R41.0 Disorientation, unspecified; R01.1 Cardiac murmur, unspecified; K11.7 Disturbances of salivary secretion; H16.299 Other keratoconjunctivitis, unspecified eye; E87.6 Hypokalemia; Z85.72 Personal history of non-Hodgkin lymphomas; Z88.1 Allergy status to other antibiotic agents
CPT/HCPCS: 36415; 70450-TC; 71045-TC-FY; 71046-TC-FY; 76705-TC; 80048; 80053; 80061; 80074; 80076; 81003; 82803; 83036; 83605; 83721; 83735; 84100; 84436; 84443; 84479; 84484; 85025; 85027; 85610; 85730; 87040; 87077; 87086; 87899; 93005; 93010; 93880-TC; 97116-GP; 97161-GP; 99285-25; J1644; J7030

== ENCOUNTER 2020-09-10 14:27 | Emergency (ER) | payer OTHER, MEDICARE ==
[2020-09-10 14:35] VITALS: BMI 26.4
[2020-09-10 17:46] LABS: EPI CELLS 14 /uL (0-25.1); HYALINE CASTS 1 /uL (0-3.1); PH,URINE 7.5 (5.0-8.0); URINE APPEARANCE CLEAR; URINE BACTERIA 3601 /uL (0-1359); URINE BILIRUBIN NEGATIVE (NEGATIVE); URINE COLOR YELLOW; URINE GLUCOSE (UA) NEGATIVE (NEGATIVE); URINE KETONE NEGATIVE (NEGATIVE); URINE LEUK ESTERASE 2+ (NEGATIVE); URINE NITRITE NEGATIVE (NEGATIVE); URINE PROTEIN NEGATIVE (NEGATIVE); URINE RBC 2 /uL (0-23.9); URINE UROBILINOGEN 0.2 mg/dL (0.2-1.0); URINE WBC 69 /uL (0-25.8)
[2020-09-10 19:53] VITALS: BP 136/87; PULSE 89; TEMP 97.9
== END 2020-09-10 19:53 | disposition home or self-care (01) ==
LOC: JER 14:27
DX: N30.00 Acute cystitis without hematuria (principal)
CPT/HCPCS: 71046-TC-FY; 81003; 87086; 87186; 93005; 93010; 99285-25